=== PATIENT | male | born 1940 | race Caucasian/White ===

== ENCOUNTER 2018-01-20 12:38 | Inpatient (IN) | payer MEDICARE, OTHER ==
[~2018-01-20] VITALS: Ht 172.7 cm; Wt 58.7 kg
[2018-01-20] MEDS ORDERED: NKM (13:23)
[2018-01-20 13:45] LABS: BASOPHILS % (AUTO) 0.7 % (0.0-2.0); EOSINOPHILS % (AUTO) 0.7 % (0.0-3.0); HEMATOCRIT 30.7 % (42.0-52.0); HEMOGLOBIN 10.5 G/DL (14.2-18.0); LYMPHOCYTES % (AUTO) 33.8 % (20.0-45.0); MEAN CORPUSCULAR VOLUME 90 FL (80-99); MONOCYTES % (AUTO) 5.3 % (1.0-10.0); NEUTROPHILS % (AUTO) 59.4 % (45.0-75.0); PLATELET COUNT 502 K/UL (150-450); RED BLOOD COUNT 3.42 M/UL (4.70-6.10); WHITE BLOOD COUNT 11.2 K/UL (4.8-10.8)
[2018-01-20] MEDS ORDERED: ASPIRIN-LOW81 MG GT (13:45)
[2018-01-20] MEDS ORDERED: ALBUTEROL2.5 MG/3 M INH (13:45)
[2018-01-20 13:51] LABS: ANION GAP 7 mmol/L (5-15); BLOOD UREA NITROGEN 17 mg/dL (7-18); CALCIUM 9.4 MG/DL (8.5-10.1); CARBON DIOXIDE 30 MMOL/L (21-32); CHLORIDE 100 MMOL/L (98-107); CREATININE 1.2 MG/DL (0.55-1.30); POTASSIUM 4.4 MMOL/L (3.5-5.1); SODIUM 137 MMOL/L (136-145)
[2018-01-20] MEDS ORDERED: SENNA8.8 MG/5 M GT (14:00)
[2018-01-20] MEDS ORDERED: DIOVAN HCT 80MG1 TAB GT (14:00)
[2018-01-20] MEDS ORDERED: UTI-STAT L3875 MG/31 GT (14:00)
[2018-01-20] MEDS ORDERED: AVODART0.5 MG GT (14:00)
[2018-01-20] MEDS ORDERED: MOM30 ML GT (14:00)
[2018-01-20] MEDS ORDERED: ZOCOR20 MG GT (14:00)
[2018-01-20] MEDS ORDERED: DOCUSATE SODIU100 M2 GT (14:00)
[2018-01-20] MEDS ORDERED: CALCIUM LACTATE84 MG GT (14:00)
[2018-01-20] MEDS ORDERED: MULTI-DELYN237 ML GT (14:00)
[2018-01-20] MEDS ORDERED: TRAZODONE HCL50 MG GT (14:00)
[2018-01-20] MEDS ORDERED: ACETAMINOPHEN325 M1 GT (14:00)
[2018-01-20] MEDS ORDERED: FLEET ENEMA133 M1 RC (14:00)
[2018-01-20] MEDS ORDERED: CALCIUM CARBON500 M1 GT (14:00)
[2018-01-20] MEDS ORDERED: Cefepime HCl 2 GM in NS 110 ML IV SCH (14:00)
[2018-01-20] MEDS ORDERED: PRO-STAT LIQUID30 ML ORAL (14:00)
[2018-01-20] MEDS ORDERED: GLYBURIDE2.5 MG GT (14:00)
[2018-01-20] MEDS ORDERED: VITAMIN D1000 UNI1 GT (14:00)
[2018-01-20] MEDS ORDERED: METAMUCIL POWD174 GM GT (14:00)
[2018-01-20 14:02] LABS: ALANINE AMINOTRANSFERASE 14 U/L (12-78); ALBUMIN 2.6 G/DL (3.4-5.0); ALBUMIN/GLOBULIN RATIO 0.5 (1.0-2.7); ALKALINE PHOSPHATASE 86 U/L (46-116); ASPARTATE AMINO TRANSFERASE 16 U/L (15-37); BILIRUBIN,TOTAL 0.4 MG/DL (0.2-1.0)
--- NOTE | 2018-01-20 14:39 | Emergency Room Report ---
History of Present Illness General Chief Complaint: Abdominal Pain Source: Medical Record Present Illness HPI Mr. Amaya is a 77-year-old male with history of Alzheimer's disease, COPD, pneumonia who presents with abnormal chest x-ray. Chest x-ray obtained recently this week, revealed bibasilar pneumonia. I obtained the majority of the history from daughter bedside and SNF records. Patient is nonverbal. Daughter explained that he was semi-independent until April when he broke his hip. At that time, living with his . He was not a surgical candidate to address hip fx. He continued to decline. Most recently he was discharged from [facility] in [facility] on January 10 after 10 day hospital stay for pneumonia presumed to be aspiration pneumonia. He had a G-tube placed during that hospitalization. Since that time he's nothing by mouth status. Since discharge, has been treated with with Levaquin. Chest x-ray was obtained due to persistent coug and re-assessment of recent pneumonia. Allergies: Coded Allergies: No Known Allergies (Unverified , 01/20/18) Patient History Limited by: language barrier, age, medical condition - dementia Past Medical History: see triage record, old chart reviewed Past Surgical History: other - reviewed per SNF records Pertinent Family History: other - not pertinent to today's presentation Social History Narrative daughter bedside, Currently resident of SNF Reviewed Nursing Documentation: PMH: Agreed; PSxH: Agreed Nursing Documentation-PM Past Medical History: No History, Except For Hx Cardiac Problems: Yes - Anemia Hx Hypertension: Yes Hx COPD: Yes - Pneumonia Hx Diabetes: Yes - Type 2 Hx Gastrointestinal Problems: Yes - dysphagia, hepatitis, Hx Dialysis: No - BPH History Of Psychiatric Problem: Yes - Major depression Hx Neurological Problems: Yes - lack of coordination, muscle weakness, Alzheimer's disease Hx Cerebrovascular Accident: Yes Review of Systems All Other Systems: limited - dementia Physical Exam Vital Signs Date Time Temp Pulse Resp B/P (MAP) Pulse Ox O2 Delivery O2 Flow Rate FiO2 01/20/18 12:46 97.2 72 14 116/70 91 Nasal Cannula 2.0 Sp02 EP Interpretation: reviewed, normal General Appearance: no apparent distress, alert, non-toxic, other - nonverbal, Chronically Ill Head: normocephalic, atraumatic Eyes: bilateral eye normal inspection, bilateral eye PERRL ENT: normal pharynx, no angioedema Neck: full range of motion, supple/symm/no masses Respiratory: chest non-tender, no respiratory distress, no retraction, no accessory muscle use, decreased breath sounds, speaking full sentences Cardiovascular #1: regular rate, rhythm, no edema, no gallop, no rub Gastrointestinal: normal bowel sounds, non tender, soft, no mass, no organomegaly, no peritonitis, no guarding, no rebound, other - G tube site CDI Musculoskeletal: back normal, normal range of motion, non-tender, calf tenderness Neurologic: alert, responsive, sensory intact, speech normal Psychiatric: other - flat affect Skin: normal turgor, pallor Lymphatic: no adenopathy Medical Decision Making Diagnostic Impression: Primary Impression: HCAP (healthcare-associated pneumonia) ER Course Mr. Amaya presents with hx of PNA. Chest x-ray performed today revealed large LLL infiltrate and RLL atelectasis Admitted to service of Dr. Donahue for broad spectrum abx Slighted elevated WBC , normal lactic acid on today's labs Labs Test 01/20/18 13:15 White Blood Count 11.2 K/UL (4.8-10.8) Red Blood Count 3.42 M/UL (4.70-6.10) Hemoglobin 10.5 G/DL (14.2-18.0) Hematocrit 30.7 % (42.0-52.0) Mean Corpuscular Volume 90 FL (80-99) Mean Corpuscular Hemoglobin 30.6 PG (27.0-31.0) Mean Corpuscular Hemoglobin Concent 34.0 G/DL (32.0-36.0) Red Cell Distribution Width 13.0 % (11.6-14.8) Platelet Count 502 K/UL (150-450) Mean Platelet Volume 6.2 FL (6.5-10.1) Neutrophils (%) (Auto) 59.4 % (45.0-75.0) Lymphocytes (%) (Auto) 33.8 % (20.0-45.0) Monocytes (%) (Auto) 5.3 % (1.0-10.0) Eosinophils (%) (Auto) 0.7 % (0.0-3.0) Basophils (%) (Auto) 0.7 % (0.0-2.0) Sodium Level 137 MMOL/L (136-145) Potassium Level 4.4 MMOL/L (3.5-5.1) Chloride Level 100 MMOL/L (98-107) Carbon Dioxide Level 30 MMOL/L (21-32) Anion Gap 7 mmol/L (5-15) Blood Urea Nitrogen 17 mg/dL (7-18) Creatinine 1.2 MG/DL (0.55-1.30) Estimat Glomerular Filtration Rate mL/min (>60) Glucose Level 46 MG/DL (74-106) Lactic Acid Level 1.70 mmol/L (0.4-2.0) Calcium Level 9.4 MG/DL (8.5-10.1) Total Bilirubin 0.4 MG/DL (0.2-1.0) Aspartate Amino Transf (AST/SGOT) 16 U/L (15-37) Alanine Aminotransferase (ALT/SGPT) 14 U/L (12-78) Alkaline Phosphatase 86 U/L (46-116) Troponin I 0.017 ng/mL (0.000-0.056) Pro-B-Type Natriuretic Peptide 282 pg/mL (0-125) Total Protein 7.4 G/DL (6.4-8.2) Albumin 2.6 G/DL (3.4-5.0) Globulin 4.8 g/dL Albumin/Globulin Ratio 0.5 (1.0-2.7) EKG Diagnostic Results EKG Time: 12:54 Rate: normal Rhythm: NSR ST Segments: no acute changes Other Impression normal sinus rhythm normal rate normal axis normal intervals no ST elevation no ST-T signs of ischemia rate 85 bpm Chest X-Ray Diagnostic Results Chest X-Ray Diagnostic Results : Chest X-Ray Ordered: Yes # of Views/Limited/Complete: 1 View Indication: Other - hx of PNA EP Interpretation: Yes Impression: Other - right lower lobe atelectasis LLL infiltrate no PTX normal cardiac silhouette normal mediastinum Last Vital Signs Date Time Temp Pulse Resp B/P (MAP) Pulse Ox O2 Delivery O2 Flow Rate FiO2 01/20/18 13:32 67 22 Room Air 01/20/18 12:46 97.2 116/70 91 2.0 Status: unchanged Disposition: ADMITTED INPATIENT Condition: Stable Referrals: Beto Donahue MD (PCP) Deedee Zelaya MD Jan 20, 2018 14:39
[2018-01-20 14:48] VITALS: BP 126/70
[2018-01-20 15:30] VITALS: BP 146/86
--- NOTE | 2018-01-20 16:00 | Diagnostic Imaging Report ---
Indication: Cough Technique: One view of the chest Comparison: none Findings: There is some infiltrate at the left lung base. There is some hazy reticular infiltrate in the right infrahilar region. The bilateral pleural spaces, upper lungs are clear. The heart size is normal. The aorta is evaluated tortuous and calcified Impression: Left lung base and right infrahilar region infiltrates, likely pneumonia
[2018-01-20] MEDS ORDERED: Milk of Magnesia 30ml Ud ORAL PRN (16:45)
[2018-01-20] MEDS ORDERED: Acetaminophen 650mg/20.3ml NG PRN (16:45)
[2018-01-20] MEDS ORDERED: Fleet's Enema 133ml RECTAL PRN ×2 (17:00→18:15)
[2018-01-20] MEDS ORDERED: Albuterol ud Inhalation HHN PRN (17:00)
[2018-01-20] MEDS ORDERED: Sennosides 8.6mg tab GT PRN ×2 (17:45→18:15)
[2018-01-20] MEDS ORDERED: Vancomycin 1.5 GM/D5W 250ML IVPB ONE (18:00)
[2018-01-20 20:00] VITALS: BP 143/88
[2018-01-20] MEDS ORDERED: NovoLOG Insulin Flexpen SUBQ SCH (21:00)
[2018-01-20] MEDS: Piperacillin/Tazobactam 4.5 GM in NS 110 ML IVPB SCH (21:32)
[2018-01-20] MEDS: Heparin 5000 units/ml inj SUBQ SCH (21:33)
[2018-01-20] MEDS: Depakote 125mg Sprinkles GT SCH (21:34)
[2018-01-20] MEDS: TraZODone 50mg tab GT SCH (21:34)
--- NOTE | 2018-01-20 21:56 | History & Physical ---
History and Physical History & Physicial HPI Mr. Amaya is a 77-year-old male with history of Alzheimer's disease, COPD, pneumonia who presents with abnormal chest x-ray. Chest x-ray with bibasilar pneumonia. Patient with hip fx but was not a candidate for surgery and thereafter began to decline. He continued to decline. He was recently discharged from [facility] in [facility] on January 10 for aspiration pneumonia. He had a G-tube placed during that hospitalization due to ongoing aspiration risk. Cxr done confirmed pneumonia. Currently nonverbal but awake. no distress noted Allergies: No Known Allergies (Unverified , 01/20/18) Past Medical History: dementia, COPD, pneumonia, anemia, hepatitis, hip fracture, depression, BPH Past Surgical History: GT Pertinent Family History: NC Social History Narrative: Currently resident of SNF; nonverbal Reviewed of systems: unable; daughter at bedside; nonverbal Physical WDWN NAD moderate breath sounds bilaterally with some rhonchi [id number] without MRG NABS nontender no HSM; GT no CCE reduced skin turgor nonfocal Laboratory Tests Test 01/20/18 13:15 White Blood Count 11.2 K/UL (4.8-10.8) H Red Blood Count 3.42 M/UL (4.70-6.10) L Hemoglobin 10.5 G/DL (14.2-18.0) L Hematocrit 30.7 % (42.0-52.0) L Mean Corpuscular Volume 90 FL (80-99) Mean Corpuscular Hemoglobin 30.6 PG (27.0-31.0) Mean Corpuscular Hemoglobin Concent 34.0 G/DL (32.0-36.0) Red Cell Distribution Width 13.0 % (11.6-14.8) Platelet Count 502 K/UL (150-450) H Mean Platelet Volume 6.2 FL (6.5-10.1) L Neutrophils (%) (Auto) 59.4 % (45.0-75.0) Lymphocytes (%) (Auto) 33.8 % (20.0-45.0) Monocytes (%) (Auto) 5.3 % (1.0-10.0) Eosinophils (%) (Auto) 0.7 % (0.0-3.0) Basophils (%) (Auto) 0.7 % (0.0-2.0) Sodium Level 137 MMOL/L (136-145) Potassium Level 4.4 MMOL/L (3.5-5.1) Chloride Level 100 MMOL/L (98-107) Carbon Dioxide Level 30 MMOL/L (21-32) Anion Gap 7 mmol/L (5-15) Blood Urea Nitrogen 17 mg/dL (7-18) Creatinine 1.2 MG/DL (0.55-1.30) Estimat Glomerular Filtration Rate mL/min (>60) Glucose Level 46 MG/DL (74-106) L Lactic Acid Level 1.70 mmol/L (0.4-2.0) Calcium Level 9.4 MG/DL (8.5-10.1) Total Bilirubin 0.4 MG/DL (0.2-1.0) Aspartate Amino Transf (AST/SGOT) 16 U/L (15-37) Alanine Aminotransferase (ALT/SGPT) 14 U/L (12-78) Alkaline Phosphatase 86 U/L (46-116) Troponin I 0.017 ng/mL (0.000-0.056) Pro-B-Type Natriuretic Peptide 282 pg/mL (0-125) H Total Protein 7.4 G/DL (6.4-8.2) Albumin 2.6 G/DL (3.4-5.0) L Globulin 4.8 g/dL Albumin/Globulin Ratio 0.5 (1.0-2.7) L IMPRESSION pneumonia respiratory stable leukocytosis aspiration GT BPH PLAN hydrate antibiotics respiratory care oxygen resume meds monitor labs sq heparin d/w daughter impression, plan, and exam edited and reviewed in detail care discussed with Beto Stanton MD Jan 20, 2018 21:56
--- NOTE | 2018-01-20 21:56 | General Progress Note ---
Subjective Allergies: Coded Allergies: No Known Allergies (Unverified , 01/20/18) Objective Last 24 Hour Vital Signs Date Time Temp Pulse Resp B/P (MAP) Pulse Ox O2 Delivery O2 Flow Rate FiO2 01/20/18 18:36 126/70 01/20/18 16:00 85 01/20/18 15:53 97.2 58 22 126/70 99 Room Air 01/20/18 15:43 Room Air 01/20/18 15:30 97.3 104 20 146/86 (106) 01/20/18 14:48 97.2 54 22 126/70 99 Room Air 01/20/18 13:32 67 22 Room Air 01/20/18 12:46 97.2 72 14 116/70 91 Nasal Cannula 2.0 Laboratory Tests 01/20/18 13:15: White Blood Count 11.2H, Red Blood Count 3.42L, Hemoglobin 10.5L, Hematocrit 30.7L, Mean Corpuscular Volume 90, Mean Corpuscular Hemoglobin 30.6, Mean Corpuscular Hemoglobin Concent 34.0, Red Cell Distribution Width 13.0, Platelet Count 502H, Mean Platelet Volume 6.2L, Neutrophils (%) (Auto) 59.4, Lymphocytes (%) (Auto) 33.8, Monocytes (%) (Auto) 5.3, Eosinophils (%) (Auto) 0.7, Basophils (%) (Auto) 0.7, Sodium Level 137, Potassium Level 4.4, Chloride Level 100, Carbon Dioxide Level 30, Anion Gap 7, Blood Urea Nitrogen 17, Creatinine 1.2, Estimat Glomerular Filtration Rate , Glucose Level 46L, Lactic Acid Level 1.70, Calcium Level 9.4, Total Bilirubin 0.4, Aspartate Amino Transf (AST/SGOT) 16, Alanine Aminotransferase (ALT/SGPT) 14, Alkaline Phosphatase 86, Troponin I 0.017, Pro-B-Type Natriuretic Peptide 282H, Total Protein 7.4, Albumin 2.6L, Globulin 4.8, Albumin/Globulin Ratio 0.5L Height (Feet): 5 Height (Inches): 8.00 Weight (Pounds): 160 Beto Donahue MD Jan 20, 2018 21:56
[2018-01-21] VITALS: BP 147/79
[2018-01-21 04:00] VITALS: BP 128/81
[2018-01-21 05:47] LABS: BASOPHILS % (AUTO) 0.5 % (0.0-2.0); EOSINOPHILS % (AUTO) 0.7 % (0.0-3.0); HEMATOCRIT 29.4 % (42.0-52.0); LYMPHOCYTES % (AUTO) 20.4 % (20.0-45.0); MEAN CORPUSCULAR VOLUME 91 FL (80-99); MONOCYTES % (AUTO) 3.8 % (1.0-10.0); NEUTROPHILS % (AUTO) 74.6 % (45.0-75.0); PLATELET COUNT 425 K/UL (150-450); RED BLOOD COUNT 3.23 M/UL (4.70-6.10); RED CELL DISTRIBUTION WIDTH 12.6 % (11.6-14.8); WHITE BLOOD COUNT 9.6 K/UL (4.8-10.8)
[2018-01-21] MEDS: Vancomycin 500mg/D5W 110ml IVPB SCH ×4 (05:53→18:46)
[2018-01-21] MEDS: NovoLOG Insulin Flexpen SUBQ SCH ×5 (05:58→23:12)
[2018-01-21 06:11] LABS: ANION GAP 8 mmol/L (5-15); BLOOD UREA NITROGEN 18 mg/dL (7-18); CALCIUM 8.8 MG/DL (8.5-10.1); CARBON DIOXIDE 27 MMOL/L (21-32); CHLORIDE 103 MMOL/L (98-107); CREATININE 1.2 MG/DL (0.55-1.30); POTASSIUM 4.4 MMOL/L (3.5-5.1); SODIUM 138 MMOL/L (136-145)
[2018-01-21] MEDS: Piperacillin/Tazobactam 4.5 GM in NS 110 ML IVPB SCH ×3 (07:06→22:45)
--- NOTE | 2018-01-21 07:24 | General Progress Note ---
Assessment/Plan Assessment/Plan IMPRESSION pneumonia respiratory stable leukocytosis aspiration GT BPH PLAN hydrate labs improved antibiotics; check cultures respiratory care oxygen resume meds monitor labs sq heparin d/w daughter impression, plan, and exam edited and reviewed in detail care discussed with RN Subjective Allergies: Coded Allergies: No Known Allergies (Unverified , 01/20/18) Subjective comfortable nonverbal Objective Last 24 Hour Vital Signs Date Time Temp Pulse Resp B/P (MAP) Pulse Ox O2 Delivery O2 Flow Rate FiO2 01/21/18 04:00 75 01/21/18 04:00 98.7 86 22 128/81 (97) 01/21/18 00:00 98.3 87 22 147/79 (101) 01/21/18 00:00 77 01/20/18 21:00 Room Air 01/20/18 20:00 98.3 90 22 143/88 (106) 01/20/18 20:00 75 01/20/18 18:36 126/70 01/20/18 16:00 85 01/20/18 15:53 97.2 58 22 126/70 99 Room Air 01/20/18 15:43 Room Air 01/20/18 15:30 97.3 104 20 146/86 (106) 01/20/18 14:48 97.2 54 22 126/70 99 Room Air 01/20/18 13:32 67 22 Room Air 01/20/18 12:46 97.2 72 14 116/70 91 Nasal Cannula 2.0 Intake and Output 01/20/18 01/21/18 19:00 07:00 Intake Total 100 ml 450 ml Balance 100 ml 450 ml Intake Oral 0 ml 450 ml IV Total 100 ml # Voids 4 Laboratory Tests 01/20/18 13:15: White Blood Count 11.2H, Red Blood Count 3.42L, Hemoglobin 10.5L, Hematocrit 30.7L, Mean Corpuscular Volume 90, Mean Corpuscular Hemoglobin 30.6, Mean Corpuscular Hemoglobin Concent 34.0, Red Cell Distribution Width 13.0, Platelet Count 502H, Mean Platelet Volume 6.2L, Neutrophils (%) (Auto) 59.4, Lymphocytes (%) (Auto) 33.8, Monocytes (%) (Auto) 5.3, Eosinophils (%) (Auto) 0.7, Basophils (%) (Auto) 0.7, Sodium Level 137, Potassium Level 4.4, Chloride Level 100, Carbon Dioxide Level 30, Anion Gap 7, Blood Urea Nitrogen 17, Creatinine 1.2, Estimat Glomerular Filtration Rate , Glucose Level 46L, Lactic Acid Level 1.70, Calcium Level 9.4, Total Bilirubin 0.4, Aspartate Amino Transf (AST/SGOT) 16, Alanine Aminotransferase (ALT/SGPT) 14, Alkaline Phosphatase 86, Troponin I 0.017, Pro-B-Type Natriuretic Peptide 282H, Total Protein 7.4, Albumin 2.6L, Globulin 4.8, Albumin/Globulin Ratio 0.5L 01/21/18 05:25: White Blood Count 9.6, Red Blood Count 3.23L, Hemoglobin 10.0L, Hematocrit 29.4L , Mean Corpuscular Volume 91, Mean Corpuscular Hemoglobin 31.0, Mean Corpuscular Hemoglobin Concent 34.1, Red Cell Distribution Width 12.6, Platelet Count 425, Mean Platelet Volume 6.1L, Neutrophils (%) (Auto) 74.6, Lymphocytes ( %) (Auto) 20.4, Monocytes (%) (Auto) 3.8, Eosinophils (%) (Auto) 0.7, Basophils (%) (Auto) 0.5, Sodium Level 138, Potassium Level 4.4, Chloride Level 103, Carbon Dioxide Level 27, Anion Gap 8, Blood Urea Nitrogen 18, Creatinine 1.2, Estimat Glomerular Filtration Rate , Glucose Level 82, Calcium Level 8.8 Height (Feet): 5 Height (Inches): 8.00 Weight (Pounds): 160 Objective WDWN NAD reduced breath sounds bilaterally without rhonchi or wheeze [id number] without MRG NABS nontender no HSM; GT no CCE reduced ROM nonverbal skin clear nonfocal Beto Donahue MD Jan 21, 2018 07:24
[2018-01-21 08:00] VITALS: BP 141/65
[2018-01-21] MEDS: Vitamin D 1000 IU Tab GT SCH (08:56)
[2018-01-21] MEDS: Multivitamins W/Minerals 15 ML UDC GT SCH (08:56)
[2018-01-21] MEDS: Depakote 125mg Sprinkles GT SCH ×2 (08:56→21:35)
[2018-01-21] MEDS: Milk of Magnesia 30ml Ud GT SCH (08:58)
[2018-01-21] MEDS: Calcium Carbonate 1250mg/5ml Liquid ud GT SCH (08:59)
[2018-01-21] MEDS: Aspirin EC 81mg tab ORAL SCH (08:59)
[2018-01-21] MEDS: Pantoprazole Inj IVP SCH (08:59)
[2018-01-21] MEDS: Docusate 250mg cap ORAL SCH (08:59)
[2018-01-21] MEDS ORDERED: Milk of Magnesia 30ml Ud GT SCH (09:00)
[2018-01-21] MEDS: Heparin 5000 units/ml inj SUBQ SCH ×2 (09:00→21:38)
[2018-01-21] MEDS ORDERED: Varibar Thin Liquid powder 148gm MC PRN (11:00)
[2018-01-21] MEDS ORDERED: Varibar Pudding 230ml MC PRN (11:00)
[2018-01-21] MEDS ORDERED: Varibar Honey 250ml MC PRN (11:00)
[2018-01-21] MEDS ORDERED: Varibar Nectar 240ml MC PRN (11:00)
--- NOTE | 2018-01-21 11:58 | Diagnostic Imaging Report ---
APPROVED REPORT CPT Code: 57002 Symptoms Comments: Pain BILATERAL: Common femoral artery waveform analysis is within normal limits at rest. Color flow duplex sonography reveals minimal to mild calcification throughout the superficial femoral and popliteal arteries. There is no evidence of significant stenosis or occlusion within these segments. The posterior tibial, anterior, perineal and dorsalis pedis arteries are patent. Doppler tibial artery waveform analyses are within normal limits, bilaterally. There is no evidence of hemodynamically significant arterial occlusive disease, bilaterally.
[2018-01-21 11:59] VITALS: BP 139/72
--- NOTE | 2018-01-21 12:03 | Diagnostic Imaging Report ---
Indications: Altered mental status Technique: Spiral acquisitions obtained through the brain. Angled axial and coronal 5 x 5 mm slices were reconstructed. Total dose length product 1397.2 mGycm. CTDI vol(s) 70.38 mGy. Dose reduction achieved using automated exposure control Comparison: None. Findings: There is marked age-related enlargement of the ventricles, less striking enlargement of the extra-axial CSF spaces. Encephalomalacia is seen in the bilateral inferior frontal lobes and anterior left temporal lobe. There is periventricular deep white matter low-attenuation. Otherwise normal castillo-white differentiation. No acute intracranial hemorrhage or edema. No mass effect nor midline shift. Visualized orbits and sinuses are unremarkable. There is chronic appearing sclerosis of the right mastoids. The left mastoids are clear. The calvarium is intact. Impression: Ventriculomegaly, out of proportion to the degree of sulcal dilatation. Probably due to disproportionate central volume loss, but normal pressure hydrocephalus is also a possibility Periventricular deep white matter low-attenuation, consistent with chronic ischemic change. Chronic encephalomalacia, consistent with old infarcts, involving the bilateral right greater than left frontal lobes, left anterior temporal lobe Negative for acute intracranial bleed or mass effect The CT scanner at [facility] is accredited by the [employer] and the scans are performed using protocols designed to limit radiation exposure to as low as reasonably achievable to attain images of sufficient resolution adequate for diagnostic evaluation.
--- NOTE | 2018-01-21 14:56 | Diagnostic Imaging Report ---
Indication: Cough Technique: One view of the chest Comparison: 01/20/2018 Findings: Interim partial clearing of previously demonstrated left basilar infiltrate. Ill-defined opacity in right infrahilar region persists. No new infiltrates. Pleural spaces are clear. The right lung is clear. The heart size is normal. The aorta is calcified Impression: Interim partial improvement of previously demonstrated left basilar infiltrate Unchanged right infrahilar region infiltrate
[2018-01-21 16:00] VITALS: BP 149/78
[2018-01-21 20:00] VITALS: BP_SYST 137; BP_SYST 141; BP_DIAS 65; BP_DIAS 94
[2018-01-21] MEDS: TraZODone 50mg tab GT SCH (21:35)
[2018-01-22] VITALS: BP 142/82
[2018-01-22 04:00] VITALS: BP 147/67
[2018-01-22] MEDS: Vancomycin 500mg/D5W 110ml IVPB SCH ×4 (06:00→18:03)
[2018-01-22] MEDS: NovoLOG Insulin Flexpen SUBQ SCH ×4 (06:00→23:54)
[2018-01-22] MEDS: Piperacillin/Tazobactam 4.5 GM in NS 110 ML IVPB SCH ×3 (07:37→21:28)
[2018-01-22 08:00] VITALS: BP 150/79
[2018-01-22] MEDS: Calcium Carbonate 1250mg/5ml Liquid ud GT SCH (09:21)
[2018-01-22] MEDS: Pantoprazole Inj IVP SCH (09:21)
[2018-01-22] MEDS: Milk of Magnesia 30ml Ud GT SCH (09:22)
[2018-01-22] MEDS: Multivitamins W/Minerals 15 ML UDC GT SCH (09:22)
[2018-01-22] MEDS: Vitamin D 1000 IU Tab GT SCH (09:22)
[2018-01-22] MEDS: Depakote 125mg Sprinkles GT SCH ×2 (09:22→20:57)
[2018-01-22] MEDS: Aspirin EC 81mg tab ORAL SCH (09:23)
[2018-01-22] MEDS: Docusate 250mg cap ORAL SCH (09:23)
[2018-01-22] MEDS: Heparin 5000 units/ml inj SUBQ SCH ×2 (09:26→20:58)
--- NOTE | 2018-01-22 09:42 | General Progress Note ---
Assessment/Plan Assessment/Plan IMPRESSION pneumonia respiratory stable leukocytosis aspiration GT BPH PLAN hydrate as is antibiotics; check cultures and finalize respiratory care oxygen resume meds monitor labs sq heparin d/w daughter as to disposition impression, plan, and exam edited and reviewed in detail care discussed with RN Subjective ROS Limited/Unobtainable: Yes Allergies: Coded Allergies: No Known Allergies (Unverified , 01/20/18) Subjective comfortable nonverbal no distress Objective Last 24 Hour Vital Signs Date Time Temp Pulse Resp B/P (MAP) Pulse Ox O2 Delivery O2 Flow Rate FiO2 01/22/18 09:22 150/79 01/22/18 08:42 77 16 Room Air 01/22/18 08:00 97.2 77 18 150/79 (102) 99 01/22/18 04:35 53 01/22/18 04:00 98.0 77 20 147/67 (93) 95 01/22/18 00:00 97.7 86 20 142/82 (102) 95 01/21/18 23:45 70 01/21/18 21:01 75 20 Room Air 01/21/18 21:00 Room Air 01/21/18 20:00 97.2 72 20 137/94 (108) 94 01/21/18 20:00 66 01/21/18 18:46 149/78 01/21/18 16:00 97.2 75 21 149/78 (101) 94 01/21/18 16:00 72 01/21/18 12:00 77 01/21/18 11:59 97.0 79 21 139/72 (94) 95 Intake and Output 01/21/18 01/22/18 19:00 07:00 Intake Total 1100 ml 1120.0 ml Output Total 800 ml 2000 ml Balance 300 ml -880.0 ml Free Water 30 ml IV Total 1100 ml 790.0 ml Tube Feeding 300 ml Output Urine Total 800 ml 2000 ml # Bowel Movements 3 Laboratory Tests 01/22/18 05:20: Vancomycin Level Trough 14.7H Height (Feet): 5 Height (Inches): 8.00 Weight (Pounds): 160 Objective WDWN NAD reduced breath sounds bilaterally without rhonchi or wheeze [id number] without MRG NABS nontender no HSM; GT no CCE reduced ROM nonverbal skin clear nonfocal Beto Donahue MD Jan 22, 2018 09:42
[2018-01-22 12:00] VITALS: BP 133/79
[2018-01-22 16:00] VITALS: BP 108/49
[2018-01-22] MEDS ORDERED: Tubing IV Secondary IV ONE (16:28)
[2018-01-22] MEDS ORDERED: NS 275ml ONE (16:28)
[2018-01-22] MEDS ORDERED: Sterile Water Irrig 1000ml IRRIG ONE (16:28)
[2018-01-22 20:00] VITALS: BP 140/62
[2018-01-22] MEDS: TraZODone 50mg tab GT SCH (20:57)
[2018-01-23] VITALS: BP 126/68
[2018-01-23 04:00] VITALS: BP 130/73
[2018-01-23] MEDS: Vancomycin 500mg/D5W 110ml IVPB SCH ×2 (05:23)
[2018-01-23] MEDS: NovoLOG Insulin Flexpen SUBQ SCH ×2 (06:00→18:00)
[2018-01-23] MEDS: Piperacillin/Tazobactam 4.5 GM in NS 110 ML IVPB SCH ×3 (06:47→21:15)
[2018-01-23 08:00] VITALS: BP 143/87
--- NOTE | 2018-01-23 08:34 | General Progress Note ---
Assessment/Plan Assessment/Plan IMPRESSION pneumonia respiratory stable leukocytosis aspiration GT BPH MRSA colonized PLAN hydrate as is antibiotics; may convert to PO respiratory care oxygen resume meds monitor labs sq heparin as is d/w daughter as to disposition in am impression, plan, and exam edited and reviewed in detail care discussed with RN Subjective ROS Limited/Unobtainable: Yes Allergies: Coded Allergies: No Known Allergies (Unverified , 01/20/18) Subjective comfortable nonverbal no distress Objective Last 24 Hour Vital Signs Date Time Temp Pulse Resp B/P (MAP) Pulse Ox O2 Delivery O2 Flow Rate FiO2 01/23/18 04:00 67 01/23/18 04:00 97.0 63 20 130/73 (92) 100 01/23/18 00:00 97.2 64 20 126/68 (87) 99 01/22/18 23:57 68 01/22/18 21:00 Room Air 01/22/18 20:59 59 01/22/18 20:00 97.3 64 20 140/62 (88) 95 01/22/18 19:53 70 18 Room Air 21 01/22/18 17:58 108/49 01/22/18 16:00 97.1 76 19 108/49 (68) 99 01/22/18 16:00 63 01/22/18 12:00 59 01/22/18 12:00 97.9 70 20 133/79 (97) 99 01/22/18 09:22 150/79 01/22/18 09:00 Room Air 01/22/18 08:42 77 16 Room Air Intake and Output 01/22/18 01/23/18 19:00 07:00 Intake Total 1536.0 ml Output Total 1000 ml 1900 ml Balance 536.0 ml -1900 ml IV Total 1086.0 ml Tube Feeding 450 ml Output Urine Total 1000 ml 1900 ml # Bowel Movements 3 Height (Feet): 5 Height (Inches): 8.00 Weight (Pounds): 160 Objective WDWN NAD reduced breath sounds bilaterally without rhonchi or wheeze [id number] without MRG NABS nontender no HSM; GT no CCE reduced ROM nonverbal skin clear nonfocal Beto Donahue MD Jan 23, 2018 08:34
--- NOTE | 2018-01-23 08:58 | Diagnostic Imaging Report ---
EXAM: XR Chest, 1 View CLINICAL HISTORY: SOB TECHNIQUE: Frontal view of the chest. COMPARISON: 01/21/18. FINDINGS/impression: Slight increase in left greater than right base consolidation. Extensive aortic calcification again noted
[2018-01-23] MEDS: Pantoprazole Inj IVP SCH (09:46)
[2018-01-23] MEDS: Docusate 250mg cap ORAL SCH (09:47)
[2018-01-23] MEDS: Vitamin D 1000 IU Tab GT SCH (09:47)
[2018-01-23] MEDS: Calcium Carbonate 1250mg/5ml Liquid ud GT SCH (09:47)
[2018-01-23] MEDS: Multivitamins W/Minerals 15 ML UDC GT SCH (09:47)
[2018-01-23] MEDS: Milk of Magnesia 30ml Ud GT SCH (09:47)
[2018-01-23] MEDS: Aspirin EC 81mg tab ORAL SCH (09:48)
[2018-01-23] MEDS: Depakote 125mg Sprinkles GT SCH ×2 (09:48→21:15)
[2018-01-23] MEDS: Heparin 5000 units/ml inj SUBQ SCH ×2 (09:51→21:14)
[2018-01-23 12:00] VITALS: BP 151/76
[2018-01-23] MEDS ORDERED: Albuterol ud Inhalation HHN PRN (12:31)
[2018-01-23] MEDS ORDERED: Acetaminophen 650mg/20.3ml NG PRN (12:31)
[2018-01-23] MEDS ORDERED: Fleet's Enema 133ml RECTAL PRN (12:33)
[2018-01-23] MEDS ORDERED: Milk of Magnesia 30ml Ud ORAL PRN (12:34)
[2018-01-23] MEDS ORDERED: Sennosides 8.6mg tab GT PRN (12:35)
[2018-01-23] MEDS ORDERED: Varibar Honey 250ml MC PRN (12:35)
[2018-01-23] MEDS ORDERED: Varibar Nectar 240ml MC PRN (12:36)
[2018-01-23] MEDS ORDERED: Varibar Thin Liquid powder 148gm MC PRN (12:36)
[2018-01-23] MEDS ORDERED: Varibar Pudding 230ml MC PRN (12:37)
[2018-01-23 16:00] VITALS: BP 144/58
[2018-01-23] MEDS: Vancomycin 500 MG in D5W 110 ML IVPB SCH (18:02)
[2018-01-23 20:00] VITALS: BP 150/78
[2018-01-23] MEDS: TraZODone 50mg tab GT SCH (21:14)
[2018-01-24] VITALS: BP 126/78
[2018-01-24 04:00] VITALS: BP 152/90
[2018-01-24] MEDS: Vancomycin 500 MG in D5W 110 ML IVPB SCH ×3 (05:08→19:10)
[2018-01-24] MEDS: NovoLOG Insulin Flexpen SUBQ SCH ×4 (06:43→17:27)
[2018-01-24] MEDS: Piperacillin/Tazobactam 4.5 GM in NS 110 ML IVPB SCH ×3 (06:44→20:39)
[2018-01-24 08:00] VITALS: BP 147/81
--- NOTE | 2018-01-24 08:41 | General Progress Note ---
Assessment/Plan Assessment/Plan IMPRESSION pneumonia/ worsening infiltrates respiratory stable leukocytosis, improved aspiration GT BPH MRSA colonized PLAN hydrate as is antibiotics; may convert to PO pending ID respiratory care oxygen resume meds monitor labs sq heparin as is d/w daughter as to disposition impression, plan, and exam edited and reviewed in detail care discussed with RN Subjective Allergies: Coded Allergies: No Known Allergies (Unverified , 01/20/18) Subjective comfortable nonverbal no distress d/w Objective Last 24 Hour Vital Signs Date Time Temp Pulse Resp B/P (MAP) Pulse Ox O2 Delivery O2 Flow Rate FiO2 01/24/18 08:00 97.7 72 20 147/81 (103) 96 01/24/18 04:00 98.6 70 20 152/90 (110) 99 01/24/18 00:00 97.7 75 20 126/78 (94) 98 01/23/18 21:00 Room Air 01/23/18 20:14 79 18 Room Air 21 01/23/18 20:00 97.2 72 18 150/78 (102) 98 01/23/18 18:03 144/58 01/23/18 16:00 97.2 80 20 144/58 (86) 96 01/23/18 12:00 96.8 79 18 151/76 (101) 98 79 01/23/18 09:48 143/87 01/23/18 09:00 Room Air Intake and Output 01/23/18 01/24/18 19:00 07:00 Intake Total 877.5 ml 192.5 ml Output Total 800 ml Balance 877.5 ml -607.5 ml Free Water 240 ml IV Total 587.5 ml 192.5 ml Tube Feeding 50 ml Output Urine Total 800 ml # Voids 4 # Bowel Movements 2 Labs Test 01/22/18 05:20 Vancomycin Level Trough 14.7 ug/mL (5.0-12.0) Height (Feet): 5 Height (Inches): 8.00 Weight (Pounds): 160 Objective WDWN NAD reduced breath sounds bilaterally with some rhonchi [id number] without MRG NABS nontender no HSM; GT no CCE reduced ROM nonverbal skin clear nonfocal Beto Donahue MD Jan 24, 2018 08:40
[2018-01-24] MEDS ORDERED: Pantoprazole Inj IVP SCH (09:00)
[2018-01-24 09:13] LABS: BASOPHILS % (AUTO) 0.8 % (0.0-2.0); EOSINOPHILS % (AUTO) 1.7 % (0.0-3.0); HEMATOCRIT 33.3 % (42.0-52.0); HEMOGLOBIN 11.2 G/DL (14.2-18.0); LYMPHOCYTES % (AUTO) 31.2 % (20.0-45.0); MEAN CORPUSCULAR VOLUME 91 FL (80-99); MONOCYTES % (AUTO) 5.5 % (1.0-10.0); NEUTROPHILS % (AUTO) 60.9 % (45.0-75.0); PLATELET COUNT 381 K/UL (150-450); RED BLOOD COUNT 3.68 M/UL (4.70-6.10); RED CELL DISTRIBUTION WIDTH 12.6 % (11.6-14.8); WHITE BLOOD COUNT 8.1 K/UL (4.8-10.8)
[2018-01-24] MEDS: Milk of Magnesia 30ml Ud GT SCH (09:20)
[2018-01-24] MEDS: Multivitamins W/Minerals 15 ML UDC GT SCH (09:22)
[2018-01-24] MEDS: Calcium Carbonate 1250mg/5ml Liquid ud GT SCH (09:22)
[2018-01-24] MEDS: Aspirin EC 81mg tab ORAL SCH (09:23)
[2018-01-24] MEDS: Vitamin D 1000 IU Tab GT SCH (09:23)
[2018-01-24] MEDS: Depakote 125mg Sprinkles GT SCH ×2 (09:25→20:39)
[2018-01-24] MEDS: Heparin 5000 units/ml inj SUBQ SCH ×2 (09:28→20:41)
[2018-01-24] MEDS: Docusate 100mg/10ml Liq GT SCH (11:22)
[2018-01-24 12:00] VITALS: BP_SYST 107; BP_SYST 133; BP_DIAS 66; BP_DIAS 79
--- NOTE | 2018-01-24 15:42 | Diagnostic Imaging Report ---
Indication: Dyspnea Comparison: 01/23/2018 A single view chest radiograph was obtained. Findings: Patchy infiltrates again demonstrated at the lung bases. Heart size is normal. Lungs are hyperexpanded. Bones are osteopenic. IMPRESSION: No change. Basal infiltrate
[2018-01-24 16:00] VITALS: BP 139/72
[2018-01-24 20:00] VITALS: BP 131/84
[2018-01-24] MEDS: TraZODone 50mg tab GT SCH (20:39)
--- NOTE | 2018-01-24 20:45 | Consultation ---
DATE OF CONSULTATION: 01/24/2018 INFECTIOUS DISEASES CONSULTATION CONSULTING PHYSICIAN: Nishi Camacho M.D. REFERRING PHYSICIAN: Beto Donahue M.D. REASON FOR CONSULTATION: Pneumonia. HISTORY OF PRESENT ILLNESS: This is a 77-year-old gentleman with history of dementia, COPD, who came in with pneumonia. He was recently discharged from [facility] in [place]. An Infectious Diseases consultation has been obtained for antibiotics. PAST MEDICAL HISTORY: 1. Dementia. 2. COPD. 3. Pneumonia. 4. Anemia. 5. Hepatitis. 6. Hip fracture. 7. Depression. 8. Benign prostatic hypertrophy. 9. Status post G-tube placement. SOCIAL HISTORY: Unknown. FAMILY HISTORY: Unknown. REVIEW OF SYSTEMS: Unable to obtain currently. MEDICATIONS: As an inpatient, the patient is on aspirin, calcium carbonate, docusate, Proscar, glyburide, milk of magnesia, multivitamin, IV vancomycin, Prevacid, atorvastatin, Depakote, subcutaneous heparin, trazodone, insulin, irbesartan, Zosyn, Seroquel, Senokot, milk of magnesia, Tylenol, and albuterol. ALLERGIES: No known drug allergies. PHYSICAL EXAMINATION: VITAL SIGNS: Temperature of 97.7, T-max of 98.6, pulse of 72, respiratory rate 20, blood pressure 147/81, and O2 saturation of 96%. HEENT: Pupils equally reactive to light and accommodation. Mouth appears clean without thrush. NECK: Supple. No adenopathy. No JVD. CARDIOVASCULAR: Regular rate and rhythm. No murmurs. LUNGS: Clear to auscultation bilaterally. No crackles. No wheezes. ABDOMEN: Soft and nontender. No organomegaly. G-tube site appears clean. EXTREMITIES: No cyanosis, no clubbing, no edema. LABORATORY AND DIAGNOSTIC DATA: Labs, white count 11.2 on 01/20/2018, white count of 8.1 on 01/24/2018, hemoglobin 11.2, hematocrit 33.3, MCV 91, platelet count of 381, and neutrophils of 60%. Sodium 138, potassium 4.4, chloride 103, bicarbonate 27, BUN 18, creatinine 1.2, glucose 82, and calcium 8.8. Total bilirubin 0.4, AST 16, ALT 14, and alkaline phosphatase 86. Troponin 0.017. Beta-natriuretic peptide 282. Total protein 7.7. Albumin 2.6. Nasal swab positive for MRSA. Rectal swab was negative for VRE. Blood cultures are negative. Chest x-ray showing slight decrease in left greater than right base consolidation. 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 ASSESSMENT: 1. This is a 77-year-old gentleman with history of dementia, pneumonia, and COPD, who comes in with probable bilateral aspiration pneumonia. 2. Dementia. 3. COPD. PLAN: 1. Continue vancomycin and Zosyn. 2. We will order sputum for Gram stain and culture. 3. We will follow up cultures and adjust antibiotics accordingly. I would like to thank, Dr. Donahue, for this consult. Nishi Camacho M.D. DR: DARIAN JOB#: [id number] CC: Beto Donahue M.D.; Fax#: [phone]
[2018-01-25] VITALS (7 sets, daily range): BP systolic 123–161; BP diastolic 64–82
[2018-01-25] MEDS: NovoLOG Insulin Flexpen SUBQ SCH ×5 (05:27→23:38)
[2018-01-25] MEDS: Vancomycin 500 MG in D5W 110 ML IVPB SCH ×2 (05:27→17:51)
[2018-01-25] MEDS: Piperacillin/Tazobactam 4.5 GM in NS 110 ML IVPB SCH ×3 (06:41→22:04)
[2018-01-25] MEDS: Milk of Magnesia 30ml Ud GT SCH (09:42)
[2018-01-25] MEDS: Calcium Carbonate 1250mg/5ml Liquid ud GT SCH (09:43)
[2018-01-25] MEDS: Depakote 125mg Sprinkles GT SCH ×2 (09:44→20:14)
[2018-01-25] MEDS: Aspirin EC 81mg tab ORAL SCH (09:45)
[2018-01-25] MEDS: Multivitamins W/Minerals 15 ML UDC GT SCH (09:45)
[2018-01-25] MEDS: Vitamin D 1000 IU Tab GT SCH (09:45)
[2018-01-25] MEDS: Heparin 5000 units/ml inj SUBQ SCH ×2 (09:46→20:15)
[2018-01-25] MEDS: Docusate 100mg/10ml Liq GT SCH (09:49)
--- NOTE | 2018-01-25 14:02 | General Progress Note ---
Assessment/Plan Assessment/Plan IMPRESSION pneumonia/ worsening infiltrates respiratory stable leukocytosis, improved aspiration GT BPH MRSA colonized diabetes with hypoglycemia on OHG PLAN dc OHG change feeds antibiotics; may convert to PO pending ID respiratory care oxygen aspiration precautions dc planning monitor labs sq heparin as is d/w daughter as to disposition impression, plan, and exam edited and reviewed in detail care discussed with RN Subjective Allergies: Coded Allergies: No Known Allergies (Unverified , 01/20/18) Subjective comfortable nonverbal no distress d/w daughter about SNF hypoglycemia on OHG Objective Last 24 Hour Vital Signs Date Time Temp Pulse Resp B/P (MAP) Pulse Ox O2 Delivery O2 Flow Rate FiO2 01/25/18 12:00 98.2 75 14 160/82 (108) 96 01/25/18 09:44 161/73 01/25/18 09:00 Room Air 01/25/18 08:00 97.0 74 16 161/73 (102) 95 01/25/18 04:00 98.3 88 16 132/82 (99) 99 01/25/18 00:00 97.4 83 17 129/78 (95) 99 01/24/18 21:00 Room Air 01/24/18 20:00 97.7 79 16 131/84 (100) 99 01/24/18 19:30 88 18 Room Air 21 01/24/18 17:31 139/72 01/24/18 16:00 97.3 93 20 139/72 (94) 96 Intake and Output 01/24/18 01/25/18 19:00 07:00 Intake Total 1372.5 ml 1827.5 ml Balance 1372.5 ml 1827.5 ml Free Water 180 ml 120 ml IV Total 592.5 ml 1357.5 ml Tube Feeding 600 ml 350 ml # Voids 3 3 # Bowel Movements 2 1 Height (Feet): 5 Height (Inches): 8.00 Weight (Pounds): 160 Objective WDWN NAD reduced breath sounds bilaterally with some rhonchi [id number] without MRG NABS nontender no HSM; GT no CCE reduced ROM nonverbal skin clear nonfocal Beto Donahue MD Jan 25, 2018 14:02
[2018-01-25] MEDS: TraZODone 50mg tab GT SCH (20:14)
[2018-01-26 04:00] VITALS: BP 136/78
[2018-01-26] MEDS: NovoLOG Insulin Flexpen SUBQ SCH ×4 (05:28→23:54)
[2018-01-26] MEDS: Piperacillin/Tazobactam 4.5 GM in NS 110 ML IVPB SCH (05:47)
[2018-01-26 08:00] VITALS: BP 130/76
[2018-01-26] MEDS: Multivitamins W/Minerals 15 ML UDC GT SCH (08:33)
[2018-01-26] MEDS: Milk of Magnesia 30ml Ud GT SCH (08:33)
[2018-01-26] MEDS: Docusate 100mg/10ml Liq GT SCH (08:33)
[2018-01-26] MEDS: Depakote 125mg Sprinkles GT SCH ×2 (08:34→20:27)
[2018-01-26] MEDS: Vitamin D 1000 IU Tab GT SCH (08:34)
[2018-01-26] MEDS: Calcium Carbonate 1250mg/5ml Liquid ud GT SCH (08:34)
[2018-01-26] MEDS: Aspirin EC 81mg tab ORAL SCH (08:34)
[2018-01-26] MEDS: Heparin 5000 units/ml inj SUBQ SCH ×2 (08:35→20:27)
--- NOTE | 2018-01-26 11:13 | Infectious Diseases Prog Note ---
Assessment/Plan Assessment/Plan antibiotics : vancomycin iv, zosyn A 1. pneumonia 2. COPD 3. dementia P 1. d/c vancomycin iv, zosyn 2. start and continue po levoquin 3 more days 3. will follow up cultures Subjective ROS Limited/Unobtainable: Yes Allergies: Coded Allergies: No Known Allergies (Unverified , 01/20/18) Objective Vital Signs Last 24 Hour Vital Signs Date Time Temp Pulse Resp B/P (MAP) Pulse Ox O2 Delivery O2 Flow Rate FiO2 01/26/18 08:34 130/76 01/26/18 08:05 Room Air 01/26/18 08:00 98.0 64 18 130/76 (94) 97 01/26/18 04:00 97.7 62 17 136/78 (97) 98 01/25/18 23:57 97.3 86 18 134/77 (96) 98 01/25/18 21:00 Room Air 01/25/18 20:00 98.1 67 17 123/64 (83) 98 01/25/18 17:50 123/67 01/25/18 16:00 96.8 73 20 123/67 (85) 97 01/25/18 12:00 98.2 75 14 160/82 (108) 96 Height (Feet): 5 Height (Inches): 8.00 Weight (Pounds): 129 Respiratory/Chest: lungs clear Cardiovascular: normal rate, regular rhythm, no gallop/murmur Abdomen: soft, non tender, other - GT Extremities: no edema Laboratory Tests Test 01/26/18 05:45 Hemoglobin A1c 4.9 % (4.3-6.0) Current Medications Medications (Trade) Dose Ordered Sig/Jess Route PRN Reason Start Time Stop Time Status Last Admin Dose Admin Acetaminophen (Tylenol) 650 mg Q4H PRN NG Fever/Headache/Mild Pain 01/23/18 12:31 02/19/18 12:30 Aspirin (Ecotrin) 81 mg DAILY ORAL 01/24/18 09:00 02/20/18 08:59 01/26/18 08:34 Atorvastatin Calcium (Lipitor) 10 mg BEDTIME GT 01/23/18 21:00 02/19/18 20:59 01/25/18 20:14 Calcium Carbonate (Os-Dionte) 1,250 mg DAILY GT 01/24/18 09:00 02/20/18 08:59 01/26/18 08:34 Dextrose (Dextrose 50%) 25 ml Q30M PRN IV Hypoglycemia 01/23/18 11:30 02/19/18 19:29 01/23/18 18:08 Dextrose (Dextrose 50%) 50 ml Q30M PRN IV Hypoglycemia 01/23/18 11:30 02/19/18 19:29 01/25/18 17:50 Divalproex Sodium (Depakote Sprinkles) 250 mg EVERY 12 HOURS GT 01/23/18 21:00 02/19/18 20:59 01/26/18 08:34 Docusate Sodium (Colace) 250 mg DAILY GT 01/24/18 09:00 02/20/18 08:59 01/26/18 08:33 Finasteride (Proscar) 5 mg DAILY ORAL 01/24/18 09:00 02/20/18 08:59 01/26/18 08:34 Heparin Sodium (Porcine) (Heparin 5000 units/ml) 5,000 units EVERY 12 HOURS SUBQ 01/23/18 21:00 02/19/18 20:59 01/26/18 08:35 Insulin Aspart (NovoLOG) Q6HR SUBQ 01/23/18 18:00 02/19/18 17:59 01/24/18 06:43 Irbesartan (Avapro) 75 mg BID GT 01/23/18 18:00 02/19/18 17:59 01/26/18 08:34 Lansoprazole (Prevacid) 30 mg DAILY GT 01/24/18 09:00 02/23/18 08:59 01/26/18 08:34 Magnesium Hydroxide (Mom) 30 ml DAILY GT 01/24/18 09:00 02/20/18 08:59 01/26/18 08:33 Magnesium Hydroxide (Mom) 30 ml DAILYPRN PRN ORAL Constipation 01/23/18 12:34 02/19/18 12:33 Multivitamins (Multivitamins W/ Minerals 15ml Liquid) 5 ml DAILY GT 01/24/18 09:00 02/20/18 08:59 01/26/18 08:33 Piperacillin Sod/ Tazobactam Sod 4.5 gm/Sodium Chloride 110 ml @ 27.5 mls/hr Q8HR IVPB 01/23/18 14:00 01/27/18 23:59 01/26/18 05:47 Quetiapine Fumarate (SEROquel) 25 mg TID GT 01/23/18 13:00 02/19/18 17:59 01/26/18 08:34 Sennosides (Senokot) 8.6 mg DAILYPRN PRN GT Constipation 01/23/18 12:35 02/22/18 12:34 Sodium Chloride 1,000 ml @ 100 mls/hr Q10H IV 01/23/18 12:30 02/19/18 12:29 01/25/18 16:01 Sodium Phosphate (Fleet's Sodium Phosl Enema) 133 ml DAILYPRN PRN RECTAL Constipation 01/23/18 12:33 02/19/18 12:32 Trazodone HCl (Desyrel) 50 mg BEDTIME GT 01/23/18 21:00 02/19/18 20:59 01/25/18 20:14 Vancomycin HCl (Vanco rx to dose) 1 ea DAILY PRN MISC RX TO DOSE 01/24/18 09:00 02/19/18 16:59 Vitamin D (Vitamin D) 2,000 intlu DAILY GT 01/24/18 09:00 02/20/18 08:59 01/26/18 08:34 Nishi Camacho MD Jan 26, 2018 11:13
[2018-01-26] MEDS: Levofloxacin 500mg tab ORAL SCH (11:59)
[2018-01-26 12:16] VITALS: BP 102/65
--- NOTE | 2018-01-26 12:38 | General Progress Note ---
Assessment/Plan Assessment/Plan IMPRESSION pneumonia/ worsening infiltrates respiratory stable leukocytosis, improved aspiration GT BPH MRSA colonized diabetes with hypoglycemia on OHG PLAN improved sugars with feeds antibiotics; may convert to PO pending ID respiratory care oxygen as needed aspiration precautions dc planning to snf monitor labs sq heparin as is d/w daughter as to disposition impression, plan, and exam edited and reviewed in detail care discussed with RN Subjective Allergies: Coded Allergies: No Known Allergies (Unverified , 01/20/18) Subjective comfortable nonverbal no distress now on po antibiotics d/w daughter about SNF hypoglycemia Objective Last 24 Hour Vital Signs Date Time Temp Pulse Resp B/P (MAP) Pulse Ox O2 Delivery O2 Flow Rate FiO2 01/26/18 12:16 98.0 100 18 102/65 (77) 97 01/26/18 08:34 130/76 01/26/18 08:05 Room Air 01/26/18 08:00 98.0 64 18 130/76 (94) 97 01/26/18 04:00 97.7 62 17 136/78 (97) 98 01/25/18 23:57 97.3 86 18 134/77 (96) 98 01/25/18 21:00 Room Air 01/25/18 20:00 98.1 67 17 123/64 (83) 98 01/25/18 17:50 123/67 01/25/18 16:00 96.8 73 20 123/67 (85) 97 Intake and Output 01/25/18 01/26/18 19:00 07:00 Intake Total 2022.5 ml 1387.5 ml Balance 2022.5 ml 1387.5 ml Free Water 340 ml 90 ml IV Total 1192.5 ml 737.5 ml Tube Feeding 490 ml 560 ml # Voids 2 3 # Bowel Movements 1 1 Laboratory Tests 01/26/18 05:45: Hemoglobin A1c 4.9 Height (Feet): 5 Height (Inches): 8.00 Weight (Pounds): 129 Objective WDWN NAD reduced breath sounds bilaterally with some rhonchi [id number] without MRG NABS nontender no HSM; GT no CCE reduced ROM nonverbal skin clear nonfocal Beto Donahue MD Jan 26, 2018 12:38
[2018-01-26 15:50] VITALS: BP 152/97
[2018-01-26] MEDS ORDERED: Tubing IV Secondary IV ONE (16:49)
[2018-01-26] MEDS ORDERED: NS 275ml ONE (16:49)
[2018-01-26 20:00] VITALS: BP 148/77
[2018-01-26] MEDS: TraZODone 50mg tab GT SCH (20:26)
[2018-01-27] VITALS: BP 153/74
[2018-01-27 04:00] VITALS: BP 138/80
[2018-01-27] MEDS: NovoLOG Insulin Flexpen SUBQ SCH ×2 (06:00→11:19)
[2018-01-27 08:00] VITALS: BP 158/92
--- NOTE | 2018-01-27 08:42 | General Progress Note ---
Assessment/Plan Assessment/Plan IMPRESSION pneumonia/ worsening infiltrates respiratory stable leukocytosis, improved aspiration GT BPH MRSA colonized diabetes with hypoglycemia on OHG PLAN improved sugars with feeds antibiotics; levaquin x 2 days respiratory care oxygen as needed aspiration precautions dc planning to snf today monitor labs sq heparin as is d/w daughter as to disposition and she is agreeable impression, plan, and exam edited and reviewed in detail care discussed with RN Subjective ROS Limited/Unobtainable: Yes Allergies: Coded Allergies: No Known Allergies (Unverified , 01/20/18) Subjective comfortable nonverbal no distress now on po antibiotics d/w daughter about SNF- will return to prior snf hypoglycemia corrected Objective Last 24 Hour Vital Signs Date Time Temp Pulse Resp B/P (MAP) Pulse Ox O2 Delivery O2 Flow Rate FiO2 01/27/18 08:00 97.0 88 17 158/92 (114) 98 01/27/18 04:00 98.8 60 18 138/80 (99) 98 01/27/18 00:00 97.4 66 18 153/74 (100) 97 01/26/18 21:00 Room Air 01/26/18 20:00 97.7 78 16 148/77 (100) 97 01/26/18 17:02 152/97 01/26/18 15:50 97.6 78 20 152/97 (115) 96 01/26/18 12:16 98.0 100 18 102/65 (77) 97 Intake and Output 01/26/18 01/27/18 19:00 07:00 Intake Total 1082.5 ml 900 ml Balance 1082.5 ml 900 ml Free Water 200 ml 300 ml IV Total 282.5 ml Tube Feeding 600 ml 600 ml # Voids 7 # Bowel Movements 1 Height (Feet): 5 Height (Inches): 8.00 Weight (Pounds): 129 Objective WDWN NAD reduced breath sounds bilaterally with some rhonchi [id number] without MRG NABS nontender no HSM; GT no CCE reduced ROM nonverbal skin clear nonfocal Beto Donahue MD Jan 27, 2018 08:42
[2018-01-27] MEDS: Aspirin EC 81mg tab ORAL SCH (09:34)
[2018-01-27] MEDS: Vitamin D 1000 IU Tab GT SCH (09:34)
[2018-01-27] MEDS: Depakote 125mg Sprinkles GT SCH (09:35)
[2018-01-27] MEDS: Heparin 5000 units/ml inj SUBQ SCH (09:35)
[2018-01-27] MEDS: Docusate 100mg/10ml Liq GT SCH (09:36)
[2018-01-27] MEDS: Milk of Magnesia 30ml Ud GT SCH (09:36)
[2018-01-27] MEDS: Calcium Carbonate 1250mg/5ml Liquid ud GT SCH (09:36)
[2018-01-27] MEDS: Multivitamins W/Minerals 15 ML UDC GT SCH (09:37)
[2018-01-27 12:00] VITALS: BP 144/75
[2018-01-27] MEDS: Levofloxacin 500mg tab ORAL SCH (12:26)
--- NOTE | 2018-01-27 14:31 | Infectious Diseases Prog Note ---
Assessment/Plan Assessment/Plan A; 1. pneumonia 2. COPD 3. dementia 4. MRSA colonization P 1. continue po Levaquin 2 more days 2. will follow up cultures Subjective ROS Limited/Unobtainable: Yes Constitutional: Reports: no symptoms Allergies: Coded Allergies: No Known Allergies (Unverified , 01/20/18) Objective Vital Signs Last 24 Hour Vital Signs Date Time Temp Pulse Resp B/P (MAP) Pulse Ox O2 Delivery O2 Flow Rate FiO2 01/27/18 12:00 97.0 93 17 144/75 (98) 96 01/27/18 09:34 158/92 01/27/18 09:00 Room Air 01/27/18 08:00 97.0 88 17 158/92 (114) 98 01/27/18 04:00 98.8 60 18 138/80 (99) 98 01/27/18 00:00 97.4 66 18 153/74 (100) 97 01/26/18 21:00 Room Air 01/26/18 20:00 97.7 78 16 148/77 (100) 97 01/26/18 17:02 152/97 01/26/18 15:50 97.6 78 20 152/97 (115) 96 Height (Feet): 5 Height (Inches): 8.00 Weight (Pounds): 129 General Appearance: no acute distress HEENT: mucous membranes moist Respiratory/Chest: normal breath sounds Cardiovascular: normal rate Abdomen: soft, non tender, other - GT feeding Extremities: no edema Skin: no rash Neurologic/Psychiatric: alert, disoriented Current Medications Medications (Trade) Dose Ordered Sig/Jess Route PRN Reason Start Time Stop Time Status Last Admin Dose Admin Acetaminophen (Tylenol) 650 mg Q4H PRN NG Fever/Headache/Mild Pain 01/23/18 12:31 02/19/18 12:30 Aspirin (Ecotrin) 81 mg DAILY ORAL 01/24/18 09:00 02/20/18 08:59 01/27/18 09:34 Atorvastatin Calcium (Lipitor) 10 mg BEDTIME GT 01/23/18 21:00 02/19/18 20:59 01/26/18 20:26 Calcium Carbonate (Os-Dionte) 1,250 mg DAILY GT 01/24/18 09:00 02/20/18 08:59 01/27/18 09:36 Dextrose (Dextrose 50%) 25 ml Q30M PRN IV Hypoglycemia 01/23/18 11:30 02/19/18 19:29 01/23/18 18:08 Dextrose (Dextrose 50%) 50 ml Q30M PRN IV Hypoglycemia 01/23/18 11:30 02/19/18 19:29 01/25/18 17:50 Divalproex Sodium (Depakote Sprinkles) 250 mg EVERY 12 HOURS GT 01/23/18 21:00 02/19/18 20:59 01/27/18 09:35 Docusate Sodium (Colace) 250 mg DAILY GT 01/24/18 09:00 02/20/18 08:59 01/27/18 09:36 Finasteride (Proscar) 5 mg DAILY ORAL 01/24/18 09:00 02/20/18 08:59 01/27/18 09:33 Heparin Sodium (Porcine) (Heparin 5000 units/ml) 5,000 units EVERY 12 HOURS SUBQ 01/23/18 21:00 02/19/18 20:59 01/27/18 09:35 Insulin Aspart (NovoLOG) Q6HR SUBQ 01/23/18 18:00 02/19/18 17:59 01/27/18 11:19 Irbesartan (Avapro) 75 mg BID GT 01/23/18 18:00 02/19/18 17:59 01/27/18 09:34 Lansoprazole (Prevacid) 30 mg DAILY GT 01/24/18 09:00 02/23/18 08:59 01/27/18 09:33 Levofloxacin (Levaquin) 500 mg Q24H ORAL 01/26/18 12:00 02/02/18 11:59 01/27/18 12:26 Magnesium Hydroxide (Mom) 30 ml DAILY GT 01/24/18 09:00 02/20/18 08:59 01/27/18 09:36 Magnesium Hydroxide (Mom) 30 ml DAILYPRN PRN ORAL Constipation 01/23/18 12:34 02/19/18 12:33 Multivitamins (Multivitamins W/ Minerals 15ml Liquid) 5 ml DAILY GT 01/24/18 09:00 02/20/18 08:59 01/27/18 09:37 Quetiapine Fumarate (SEROquel) 25 mg TID GT 01/23/18 13:00 02/19/18 17:59 01/27/18 12:26 Sennosides (Senokot) 8.6 mg DAILYPRN PRN GT Constipation 01/23/18 12:35 02/22/18 12:34 Sodium Phosphate (Fleet's Sodium Phosl Enema) 133 ml DAILYPRN PRN RECTAL Constipation 01/23/18 12:33 02/19/18 12:32 Trazodone HCl (Desyrel) 50 mg BEDTIME GT 01/23/18 21:00 02/19/18 20:59 01/26/18 20:26 Vitamin D (Vitamin D) 2,000 intlu DAILY GT 01/24/18 09:00 02/20/18 08:59 01/27/18 09:34 Surendra Stoddard MD Jan 27, 2018 14:31
[2018-01-27] MEDS ORDERED: ACETAMINOP160 MG/54 GT (15:52)
[2018-01-27] MEDS ORDERED: ASPIRIN81 MG GT (15:54)
[2018-01-27] MEDS ORDERED: ACETAMINOPHEN325 M1 GT (15:54)
[2018-01-27] MEDS ORDERED: LIPITOR80 MG GT (15:57)
[2018-01-27] MEDS ORDERED: CALCIUM CARBO2500 GM GT (15:59)
[2018-01-27 16:00] VITALS: BP 139/82
[2018-01-27] MEDS ORDERED: DEPAKOTE SPRIN125 MG GT (16:07)
[2018-01-27] MEDS ORDERED: PROSCAR5 MG ORAL ×2 (16:10→16:20)
[2018-01-27] MEDS ORDERED: HEPARIN SO5000 UNIT2 SUBQ (16:21)
[2018-01-27] MEDS ORDERED: FLEET ENEMA133 ML RECTAL (16:21)
[2018-01-27] MEDS ORDERED: NOVOLOG100 UNIT/5 SUBQ (16:22)
[2018-01-27] MEDS ORDERED: AVAPRO75 MG GT (16:23)
[2018-01-27] MEDS ORDERED: LANSOPRAZOLE30 MG GT (16:25)
[2018-01-27] MEDS ORDERED: LEVAQUIN500 MG GT (16:26)
[2018-01-27] MEDS ORDERED: SEROQUEL25 MG GT (16:27)
--- NOTE | 2018-01-28 10:00 | Discharge Summary ---
Discharge Summary Discharge Summary _ DATE OF ADMISSION: 01/20/2018 DATE OF DISCHARGE: 01/27/2018 DISCHARGED BY: Dr. Beto Donahue GYMNASTIC COACH: Dr. Nishi Camacho BRIEF HOSPITAL COURSE: Patient is a 77-year-old male, with history of Alzheimer's disease, COPD and pneumonia, presented to ED due to abnormal chest x-ray. Chest x-ray showed bibasilar pneumonia. The patient was diagnosed with hip fracture but was not a candidate for surgery and thereafter began to decline. He was recently discharged from [facility] in [place], [place] on January 10, 2018 for aspiration pneumonia. He had a G-tube placed during that hospitalization due to ongoing aspiration risk. Currently patient is nonverbal but awake. There was no distress noted. Since discharge, he has been treated with Levaquin. Chest x-ray was obtained due to persistent cough and reassessment showed pneumonia. On evaluation, vital signs stable. Blood work showed slightly elevated WBC to 11.2. Hemoglobin was 10.5, hematocrit 30, platelet count was 502. Electrolytes were stable. Lactic acid was troponin was negative. EKG showed normal sinus rhythm with normal ST elevation, no ST-T signs of ischemia. Chest x-ray showed left lung base and right infrahilar infiltrates, likely pneumonia. He was then admitted for evaluation and management of pneumonia. He was given respiratory care. He was started on IV antibiotics. He was given oxygen rotation. He was placed on heparin for DVT prophylaxis. Infectious disease specialist was consulted. He was continued on vancomycin and Zosyn pending culture results. Blood culture did not isolate any growth. MRSA nares screen was positive. He had an episode of hypoglycemia. Patient was taking glyburide. Blood glucose was monitored. He was continued on insulin sliding scale. Respiratory status was monitored. Surveillance CXR were done. Blood glucose improved. Zosyn and Vancomycin were discontinued. Antibiotics were changed to po levaquin. He was then cleared for discharge to SNF. FINAL DIAGNOSES: Pneumonia/ worsening infiltrates Leukocytosis, improved High risk for aspiration GTube status BPH MRSA colonized Diabetes with episode of hypoglycemia COPD Dementia DISPOSITION: DC to [facility]. DISCHARGE MEDICATIONS: Refer to Discharge Medication List. I have been assigned to dictate discharge summary on this account, and I was not involved in the patient's management. Chani Joshi NP Jan 28, 2018 10:00
== END 2018-01-27 16:50 | DRG 194 ==
LOC: EDBD 12:38 → EDUNIT# 12:38 → EMR 13:39 → 2E 13:55 → EDBEDREQ 14:36 → 2E 15:41 → 4E 01-23 11:40
DX: J18.9 Pneumonia, unspecified organism (principal); Z43.1 Encounter for attention to gastrostomy; N40.0 Benign prostatic hyperplasia without lower urinary tract symptoms; Z22.322 Carrier or suspected carrier of Methicillin resistant Staphylococcus aureus; E11.649 Type 2 diabetes mellitus with hypoglycemia without coma; J44.9 Chronic obstructive pulmonary disease, unspecified; G30.9 Alzheimer's disease, unspecified; F02.80 Dementia in other diseases classified elsewhere, unspecified severity, without behavioral disturbance, psychotic disturbance, mood disturbance, and anxiety
CPT/HCPCS: 36415; 70450; 71045; 80048; 80053; 80202; 82962; 83036; 83605; 83880; 84484; 85025; 87040; 87081; 93005; 93925; 94664; 96365; 96366; 96368; 99284; J1815

== ENCOUNTER 2018-02-24 15:23 | Inpatient (IN) | payer MEDICARE, OTHER ==
[~2018-02-24] VITALS: Ht 170.2 cm; Wt 68.0 kg
[~2018-02-24 15:23] MED LIST: ACETAMINOP160 MG/54 GT; ACETAMINOPHEN325 M1 GT; ALBUTEROL2.5 MG/3 M INH; ASPIRIN-LOW81 MG GT; ASPIRIN81 MG GT; AVAPRO75 MG GT; AVODART0.5 MG GT; CALCIUM CARBO2500 GM GT; CALCIUM CARBON500 M1 GT; CALCIUM LACTATE84 MG GT; DEPAKOTE SPRIN125 MG GT; DIOVAN HCT 80MG1 TAB GT; DOCUSATE SODIU100 M2 GT; FLEET ENEMA133 M1 RC; FLEET ENEMA133 ML RECTAL; GLYBURIDE2.5 MG GT; HEPARIN SO5000 UNIT2 SUBQ; LANSOPRAZOLE30 MG GT; LEVAQUIN500 MG GT; LIPITOR80 MG GT; METAMUCIL POWD174 GM GT; MOM30 ML GT; MULTI-DELYN237 ML GT; NKM; NOVOLOG100 UNIT/5 SUBQ; PRO-STAT LIQUID30 ML ORAL; PROSCAR5 MG GT; PROSCAR5 MG ORAL; SENNA8.8 MG/5 M GT; SEROQUEL25 MG GT; TRAZODONE HCL50 MG GT; UTI-STAT L3875 MG/31 GT; VITAMIN D1000 UNI1 GT; ZOCOR20 MG GT
[2018-02-24 15:26] VITALS: BP 104/59
[2018-02-24] MEDS ORDERED: Albuterol ud Inhalation HHN ONE (15:45)
[2018-02-24] MEDS ORDERED: Ipratropium 0.02% Inh Soln 2.5ml UD HHN ONE (15:45)
--- NOTE | 2018-02-24 16:13 | Emergency Room Report ---
History of Present Illness General Chief Complaint: Dyspnea/Respdistress Source: Medical Record Present Illness HPI Patient presents emergency department today complaining of severe shortness of breath. Patient apparently developed acute onset of severe shortness of breath while at [facility]. Patient has had a history of pneumonia. And has been coughing and short of breath. Patient's prior further evaluation because patient apparently had an episode of desaturation. Symptoms noted to be severe. Patient is nonverbal and unable to provide much history. All history was taken from medical records and discussion with paramedics.No other modifying factors. No other associated signs and symptoms. No other complaints were noted. Allergies: Coded Allergies: No Known Allergies (Unverified , 01/20/18) Patient History Past Medical History: HTN, CAD, pneumonia, CVA/TIA Past Surgical History: other - G-tube Pertinent Family History: none Social History Narrative stays at [facility] Reviewed Nursing Documentation: PMH: Agreed; PSxH: Agreed Nursing Documentation-PMH Past Medical History: No History, Except For Hx Cardiac Problems: Yes Hx Hypertension: Yes Hx COPD: Yes - Pneumonia Hx Diabetes: Yes Hx Cancer: No Hx Gastrointestinal Problems: Yes Hx Dialysis: Yes Hx Neurological Problems: Yes Hx Cerebrovascular Accident: Yes Hx Alzheimer's Disease: Yes Hx Speech Problem: Yes Review of Systems All Other Systems: limited - poor mental status Physical Exam Vital Signs Date Time Temp Pulse Resp B/P (MAP) Pulse Ox O2 Delivery O2 Flow Rate FiO2 02/24/18 15:26 97.5 113 18 104/59 96 Room Air 02/24/18 15:57 2.0 28 Sp02 EP Interpretation: reviewed, normal General Appearance: alert, mild distress - Short of breath Head: atraumatic Eyes: bilateral eye normal inspection ENT: normal ENT inspection, hearing grossly normal, normal voice Neck: normal inspection, full range of motion, supple, no bony tend Respiratory: decreased breath sounds, accessory muscle use, wheezing, expiration Cardiovascular #1: regular rate, rhythm, no edema Gastrointestinal: normal inspection, normal bowel sounds, non tender, soft, no guarding, no hernia, other - G-tube in place Genitourinary: no CVA tenderness Musculoskeletal: normal inspection, back normal, normal range of motion Neurologic: normal inspection, alert, responsive Psychiatric: depressed affect Skin: normal inspection, normal color, no rash Procedures Critical Care Time Critical Care Time Patient had a critical medical condition which untreated could potentially result in life or limb threatening injury. Total critical care time excluding procedures was approximately 45 minutes. Medical Decision Making Diagnostic Impression: Primary Impression: Respiratory distress Additional Impressions: COPD exacerbation UTI (urinary tract infection) ER Course Patient presents emergency department today complaining of shortness of breath. Differential diagnoses include acute pneumonia, CHF, acute coronary syndrome, pneumothorax, asthma, COPD flare, just to name a few.Given the severity of the patient's presentation I felt this is a highly complex patient. This patient required extensive workup. Patient also reportedly had a UTI. Patient's exam is consistent with COPD exacerbation. Patient was given respiratory treatments with improvement symptoms. Patient's urine is positive for UTI patient was started on IV antibiotics. Case was discussed with Dr. Donahue for admission. Patient will be admitted for further treatment. Labs Test 02/24/18 16:12 02/24/18 16:36 White Blood Count 12.2 K/UL (4.8-10.8) Red Blood Count 3.50 M/UL (4.70-6.10) Hemoglobin 11.1 G/DL (14.2-18.0) Hematocrit 33.2 % (42.0-52.0) Mean Corpuscular Volume 95 FL (80-99) Mean Corpuscular Hemoglobin 31.6 PG (27.0-31.0) Mean Corpuscular Hemoglobin Concent 33.4 G/DL (32.0-36.0) Red Cell Distribution Width 11.7 % (11.6-14.8) Platelet Count 204 K/UL (150-450) Mean Platelet Volume 8.1 FL (6.5-10.1) Neutrophils (%) (Auto) 87.9 % (45.0-75.0) Lymphocytes (%) (Auto) 7.9 % (20.0-45.0) Monocytes (%) (Auto) 3.7 % (1.0-10.0) Eosinophils (%) (Auto) 0.1 % (0.0-3.0) Basophils (%) (Auto) 0.4 % (0.0-2.0) Sodium Level 132 MMOL/L (136-145) Potassium Level 4.9 MMOL/L (3.5-5.1) Chloride Level 99 MMOL/L (98-107) Carbon Dioxide Level 27 MMOL/L (21-32) Anion Gap 6 mmol/L (5-15) Blood Urea Nitrogen 42 mg/dL (7-18) Creatinine 1.4 MG/DL (0.55-1.30) Estimat Glomerular Filtration Rate mL/min (>60) Glucose Level 128 MG/DL (74-106) Lactic Acid Level 2.00 mmol/L (0.4-2.0) Calcium Level 9.5 MG/DL (8.5-10.1) Total Bilirubin 0.3 MG/DL (0.2-1.0) Aspartate Amino Transf (AST/SGOT) 42 U/L (15-37) Alanine Aminotransferase (ALT/SGPT) 17 U/L (12-78) Alkaline Phosphatase 75 U/L (46-116) Troponin I 0.000 ng/mL (0.000-0.056) Pro-B-Type Natriuretic Peptide 1220 pg/mL (0-125) Total Protein 6.9 G/DL (6.4-8.2) Albumin 2.1 G/DL (3.4-5.0) Globulin 4.8 g/dL Albumin/Globulin Ratio 0.4 (1.0-2.7) Lipase 76 U/L (73-393) Urine Color Yellow Urine Appearance Cloudy Urine pH 5 (4.5-8.0) Urine Specific [place] 1.015 (1.005-1.035) Urine Protein 2+ (NEGATIVE) Urine Glucose (UA) Negative (NEGATIVE) Urine Ketones 1+ (NEGATIVE) Urine Blood 4+ (NEGATIVE) Urine Nitrite Negative (NEGATIVE) Urine Bilirubin Negative (NEGATIVE) Urine Urobilinogen Normal MG/DL (0.0-1.0) Urine Leukocyte Esterase 3+ (NEGATIVE) Urine RBC 5-10 /HPF (0 - 0) Urine WBC Tntc /HPF (0 - 0) Urine Squamous Epithelial Cells None /LPF (NONE/OCC) Urine Bacteria Moderate /HPF (NONE) EKG Diagnostic Results Rate: tachycardiac Rhythm: NSR ST Segments: no acute changes Rhythm Strip Diag. Results EP Interpretation: yes Rate: 120 Rhythm: NSR, no PVC's, no ectopy Chest X-Ray Diagnostic Results Chest X-Ray Diagnostic Results : Chest X-Ray Ordered: Yes # of Views/Limited/Complete: 1 View Indication: Shortness of Breath EP Interpretation: Yes Interpretation: no consolidation, no effusion, no pneumothorax, no acute cardiopulmonary disease Impression: No acute disease Electronically Signed by: Electronically signed by Carlos Copeland MD Last Vital Signs Date Time Temp Pulse Resp B/P (MAP) Pulse Ox O2 Delivery O2 Flow Rate FiO2 02/24/18 15:59 103 20 Nasal Cannula 2.0 28 02/24/18 15:57 96 02/24/18 15:26 97.5 104/59 Status: improved Disposition: ADMITTED INPATIENT Condition: Stable Carlos Copeland MD Feb 24, 2018 16:13
--- NOTE | 2018-02-24 16:24 | NUR ---
ED Nurse Note: Pt. brought in by ambulance from [facility] due to low pulse oximetry reading. Per EMS, patient's pulse oximetry reading was 90% on room air. Nursing staff at removed thick secrections. Per EMS, pt has been having SOB x about an hour upon ER arrival. Skin is intact but redness noted on the sacral are. No open wound noted. Pt. had a watery stool today. Pt was kept clean and dry.
[2018-02-24] MEDS ORDERED: Piperacillin/Tazobactam 3.375 GM in NS 110 ML IVPB ONE (17:00)
[2018-02-24 17:03] LABS: ANION GAP 6 mmol/L (5-15); BLOOD UREA NITROGEN 42 mg/dL (7-18); CALCIUM 9.5 MG/DL (8.5-10.1); CARBON DIOXIDE 27 MMOL/L (21-32); CHLORIDE 99 MMOL/L (98-107); CREATININE 1.4 MG/DL (0.55-1.30); POTASSIUM 4.9 MMOL/L (3.5-5.1); SODIUM 132 MMOL/L (136-145)
[2018-02-24 17:04] LABS: HEMATOCRIT 33.2 % (42.0-52.0); HEMOGLOBIN 11.1 G/DL (14.2-18.0); MEAN CORPUSCULAR VOLUME 95 FL (80-99); PLATELET COUNT 204 K/UL (150-450); RED CELL DISTRIBUTION WIDTH 11.7 % (11.6-14.8); WHITE BLOOD COUNT 12.2 K/UL (4.8-10.8)
[2018-02-24 17:08] LABS: BASOPHILS % (AUTO) 0.4 % (0.0-2.0); EOSINOPHILS % (AUTO) 0.1 % (0.0-3.0); LYMPHOCYTES % (AUTO) 7.9 % (20.0-45.0); MONOCYTES % (AUTO) 3.7 % (1.0-10.0); NEUTROPHILS % (AUTO) 87.9 % (45.0-75.0)
[2018-02-24 17:13] LABS: ALANINE AMINOTRANSFERASE 17 U/L (12-78); ALBUMIN 2.1 G/DL (3.4-5.0); ALBUMIN/GLOBULIN RATIO 0.4 (1.0-2.7); ALKALINE PHOSPHATASE 75 U/L (46-116); ASPARTATE AMINO TRANSFERASE 42 U/L (15-37); BILIRUBIN,TOTAL 0.3 MG/DL (0.2-1.0)
[2018-02-24 17:13] LABS: APPEARANCE,URINE CLOUDY; BILIRUBIN, URINE NEGATIVE (NEGATIVE); GLUCOSE, URINE (UA) NEGATIVE (NEGATIVE); KETONES,URINE 1+ (NEGATIVE); LEUKOCYTE ESTERASE ,URINE 3+ (NEGATIVE); NITRITE,URINE NEGATIVE (NEGATIVE); PH,URINE 5 (4.5-8.0); PROTEIN,URINE 2+ (NEGATIVE); UROBILINOGEN,URINE NORMAL MG/DL (0.0-1.0)
[2018-02-24 17:14] LABS: COLOR,URINE YELLOW
[2018-02-24] MEDS ORDERED: LANSOPRAZOLE30 MG ORAL (17:26)
[2018-02-24] MEDS ORDERED: GLUCERNA 1.5 C237 ML GT (17:26)
[2018-02-24] MEDS ORDERED: FLEET ENEMA133 ML RECTAL (17:26)
[2018-02-24] MEDS ORDERED: MULTI-DELYN237 ML GT (17:27)
[2018-02-24] MEDS ORDERED: SENNA8.8 MG/5 M GT (17:29)
--- NOTE | 2018-02-24 17:41 | Diagnostic Imaging Report ---
Indication: Chest pain Technique: One view of the chest Comparison: 01/24/2018 Findings: The lungs and pleural spaces are clear. The heart size is normal. The aorta is calcified. Previously demonstrated bilateral basilar infiltrates are no longer evident Impression: No acute process
[2018-02-24 18:51] VITALS: BP 118/63
--- NOTE | 2018-02-24 19:10 | NUR ---
ED Nurse Note: Received report from Aleshia/LYNDON. Pt is awake, with O2/2l/ NC with O2 sat 99%. waiting for bed to transfer.
[2018-02-24] MEDS ORDERED: ACETAMINOP160 MG/54 ORAL (19:12)
[2018-02-24] MEDS ORDERED: DOCUSATE S50 MG/5 ML GT (19:19)
[2018-02-24] MEDS ORDERED: ATORVASTATIN CA10 MG ORAL (19:19)
[2018-02-24] MEDS ORDERED: LEVAQUIN750 MG GT (19:31)
[2018-02-24] MEDS ORDERED: [UNRECOGNIZED DRUG - OTHER] GT (19:31)
[2018-02-24 20:00] VITALS: BP 115/75
--- NOTE | 2018-02-24 20:12 | NUR ---
TRANSFER TO FLOOR: Patient transferred to Tele/212 as ordered. Report given to Sonja/LYNDON. Belongings sent with Pt and rechecked with RN
--- NOTE | 2018-02-24 20:13 | NUR ---
NURSE NOTES: Received report from LYNDON Coburn. Patient was transferred to Telemetry unit from ER via draw sheet method, 3 staff member assist without incident. No signs of acute distress or pain noted. On 2L nasal cannula. AOx1; unable to verbalize needs. Checked IV site; patent and flushed. No erythema, bleeding, or infiltration noted. Patient put on Tele box; sinus rhythm on the monitor (90s). Left lower quadrant G-tube flushed and auscultated; patent. No residual noted. Skin assessment performed; wound photo taken. Belongings list checked; no belongings noted. Bed at lowest position, brakes on, siderails up x3. Call light within reach. Will continue to monitor.
--- NOTE | 2018-02-24 21:00 | History and Physical Report ---
DATE OF ADMISSION: 02/24/2018 PULMONARY/HISTORY AND PHYSICAL REASON FOR ADMISSION: Multidrug-resistant infection, possible pneumonia. HISTORY OF PRESENT ILLNESS: This is a 77-year-old unfortunate male, who presents to the medical center. The patient has been in the nursing facility, not under my care. The patient has a history of Alzheimer disease, chronic obstructive pulmonary disease, and pneumonia. The patient presented previously with pneumonia and treated. The patient now with urinary tract infection, difficult to treat, and admitted for further management. The patient is nonverbal at this time. The patient is noted to be somewhat congested. Cultures and results from the long-term were reviewed. The patient's urinary tract infection is sensitive to Zosyn as well as ceftazidime. The patient's care was discussed and reviewed. PAST MEDICAL HISTORY: Notable for dementia, chronic obstructive pulmonary disease, pneumonia, anemia, hepatitis, hip fracture, depression, and BPH. PAST SURGICAL HISTORY: G-tube. FAMILY HISTORY: Noncontributory. SOCIAL HISTORY: Currently, resides in a [place] [facility] facility. PHYSICAL EXAMINATION: GENERAL: The patient is a well-developed male, chronically ill. VITAL SIGNS: Blood pressure 139/82, pulse 89, respirations 19, sats 97%, and temperature 97. HEENT: Negative. NECK: Supple. No adenopathy. Oropharynx is dry. LUNGS: Moderate breath sounds. Minimal rhonchi. CARDIAC: Normal S1, S2. Regular rate and rhythm without murmurs, rubs, or gallops. ABDOMEN: Soft and nontender. G-tube in place. EXTREMITIES: No cyanosis or clubbing. There is decreased range of motion. SKIN: Turgor is adequate. Skin is otherwise noted. LABORATORY DATA: Reviewed. Notable for hemoglobin 11.2. Electrolytes all within normal limits. Albumin previously was 2.6. IMPRESSION: 1. Respiratory congestion, possible early pneumonia. 2. Urinary tract infection per history. 3. History of G-tube. 4. History of BPH. 5. History of aspiration. 6. Altered mental status. 7. Chronic encephalopathy. RECOMMENDATIONS: 1. Supportive care. 2. Hydrate. 3. IV antibiotics with Zosyn. 4. Respiratory care. 5. Follow up urine culture. 6. Resume medications. 7. G-tube feedings. 8. Monitor for change. 9. Stabilize and discharge the patient back to the [place] [facility] when improved. Beto Donahue M.D. DR: VANNA JOB#: [id number] CC:
--- NOTE | 2018-02-24 22:00 | NUR ---
NURSE NOTES: Left message for Dr. Donahue for admission orders. Awaiting callback.
--- NOTE | 2018-02-24 22:17 | NUR ---
NURSE NOTES: Received admission orders from Dr. Donahue including continuing prison medications and feedings. Noted and carried out.
[2018-02-24] MEDS ORDERED: Milk of Magnesia 30ml Ud GT PRN (22:30)
[2018-02-24] MEDS ORDERED: Acetaminophen Soln 160mg/5ml ORAL PRN (22:30)
[2018-02-24] MEDS ORDERED: Fleet's Enema 133ml RECTAL PRN ×2 (22:30→22:45)
[2018-02-25] VITALS: BP 128/85
[2018-02-25] MEDS: Piperacillin/Tazobactam 3.375 GM in NS 110 ML IVPB SCH ×3 (00:35→12:00)
[2018-02-25 04:00] VITALS: BP 123/79
[2018-02-25] MEDS: Vancomycin 1250mg/D5W 250ml 250 ML IVPB SCH (05:08)
[2018-02-25] MEDS: NovoLOG Insulin Flexpen SUBQ SCH ×3 (07:15→18:00)
--- NOTE | 2018-02-25 07:45 | NUR ---
NURSE NOTES: Patient sitting up in bed, awake and alert, in no apparent distress, bed in lowest position, call light within reach, G-tube in place.
[2018-02-25 08:00] VITALS: BP 143/79
[2018-02-25] MEDS ORDERED: Acetaminophen 650mg/20.3ml ORAL PRN (08:00)
[2018-02-25 08:03] LABS: BASOPHILS % (AUTO) 0.3 % (0.0-2.0); EOSINOPHILS % (AUTO) 0.1 % (0.0-3.0); HEMATOCRIT 29.5 % (42.0-52.0); HEMOGLOBIN 9.7 G/DL (14.2-18.0); LYMPHOCYTES % (AUTO) 20.2 % (20.0-45.0); MEAN CORPUSCULAR VOLUME 94 FL (80-99); MONOCYTES % (AUTO) 6.5 % (1.0-10.0); NEUTROPHILS % (AUTO) 72.9 % (45.0-75.0); PLATELET COUNT 255 K/UL (150-450); RED BLOOD COUNT 3.15 M/UL (4.70-6.10); RED CELL DISTRIBUTION WIDTH 12.1 % (11.6-14.8); WHITE BLOOD COUNT 8.8 K/UL (4.8-10.8)
[2018-02-25 08:21] LABS: ANION GAP 8 mmol/L (5-15); BLOOD UREA NITROGEN 33 mg/dL (7-18); CALCIUM 8.8 MG/DL (8.5-10.1); CARBON DIOXIDE 27 MMOL/L (21-32); CHLORIDE 105 MMOL/L (98-107); CREATININE 1.2 MG/DL (0.55-1.30); POTASSIUM 3.7 MMOL/L (3.5-5.1); SODIUM 140 MMOL/L (136-145)
--- NOTE | 2018-02-25 08:50 | NUR ---
HAND-OFF: Report given to LYNDON España. Patient is asleep lying semi-deng's; resting comfortably. On 2L nasal cannula. Glucerna 1.5 running at 20 mls/hr for a goal of 55 mls/hr.
--- NOTE | 2018-02-25 09:00 | Pulmonology Progress Note ---
Assessment/Plan Assessment/Plan IMPRESSION: 1. Respiratory congestion, possible early pneumonia. 2. Urinary tract infection per history. 3. History of G-tube. 4. History of BPH. 5. History of aspiration. 6. Altered mental status. 7. Chronic encephalopathy. PLAN antibiotics ID evaluation respiratory care aspiration precautions gt feeds supportive care DVT prophylaxis snf discharge when improved impression, plan, and exam edited and reviewed in detail care discussed with RN Subjective ROS Limited/Unobtainable: Yes Allergies: Coded Allergies: No Known Allergies (Unverified , 01/20/18) Subjective care noted and reviewed events noted Objective Last 24 Hour Vital Signs Date Time Temp Pulse Resp B/P (MAP) Pulse Ox O2 Delivery O2 Flow Rate FiO2 02/25/18 04:00 79 02/25/18 04:00 97.7 94 20 123/79 (94) 99 02/25/18 00:00 98.0 105 20 128/85 (99) 98 02/25/18 00:00 97 02/24/18 22:08 Nasal Cannula 2.0 02/24/18 20:12 94 02/24/18 20:12 98.6 103 22 115/62 99 Nasal Cannula 2.0 28 02/24/18 20:00 98.3 103 20 115/75 (88) 98 02/24/18 18:51 98.6 106 22 118/63 100 Nasal Cannula 2.0 28 02/24/18 16:24 122 20 99 Nasal Cannula 2.0 28 02/24/18 15:59 103 20 Nasal Cannula 2.0 28 02/24/18 15:57 105 22 96 Nasal Cannula 2.0 28 02/24/18 15:26 97.5 18 104/59 96 Room Air 02/24/18 15:26 97.5 113 18 104/59 96 Room Air 02/24/18 15:26 113 18 Room Air Intake and Output 02/24/18 02/25/18 19:00 07:00 Intake Total 1152.0 ml Output Total 0 ml Balance 0 ml 1152.0 ml Intake Free Water 100 ml IV Total 1002.0 ml Tube Feeding 50 ml Output Urine Total 0 ml # Voids 2 Objective GENERAL: The patient is a well-developed male, chronically ill. HEENT: Negative. NECK: Supple. No adenopathy. Oropharynx is dry. LUNGS: Moderate breath sounds. Minimal rhonchi. and same CARDIAC: Normal S1, S2. Regular rate and rhythm without murmurs, rubs, or gallops. ABDOMEN: Soft and nontender. G-tube in place. EXTREMITIES: No cyanosis or clubbing. There is decreased range of motion. SKIN: Turgor is adequate. Skin is otherwise noted. Microbiology Date/Time Source Procedure Growth Status 02/24/18 16:40 Nasal Nares Influenza Types A,B Antigen (EUFEMIA) - Final Complete Laboratory Tests 02/24/18 16:12: White Blood Count 12.2H, Red Blood Count 3.50L, Hemoglobin 11.1L, Hematocrit 33.2L, Mean Corpuscular Volume 95, Mean Corpuscular Hemoglobin 31.6H, Mean Corpuscular Hemoglobin Concent 33.4, Red Cell Distribution Width 11.7, Platelet Count 204, Mean Platelet Volume 8.1, Neutrophils (%) (Auto) 87.9H, Lymphocytes ( %) (Auto) 7.9L, Monocytes (%) (Auto) 3.7, Eosinophils (%) (Auto) 0.1, Basophils (%) (Auto) 0.4, Sodium Level 132L, Potassium Level 4.9, Chloride Level 99, Carbon Dioxide Level 27, Anion Gap 6, Blood Urea Nitrogen 42H, Creatinine 1.4H, Estimat Glomerular Filtration Rate , Glucose Level 128H, Lactic Acid Level 2.00 , Calcium Level 9.5, Total Bilirubin 0.3, Aspartate Amino Transf (AST/SGOT) 42H , Alanine Aminotransferase (ALT/SGPT) 17, Alkaline Phosphatase 75, Troponin I 0.000, Pro-B-Type Natriuretic Peptide 1220H, Total Protein 6.9, Albumin 2.1L, Globulin 4.8, Albumin/Globulin Ratio 0.4L, Lipase 76 02/24/18 16:36: Urine Color Yellow, Urine Appearance Cloudy, Urine pH 5, Urine Specific [place] 1.015, Urine Protein 2+H, Urine Glucose (UA) Negative, Urine Ketones 1+H, Urine Blood 4+H, Urine Nitrite Negative, Urine Bilirubin Negative, Urine Urobilinogen Normal, Urine Leukocyte Esterase 3+H, Urine RBC 5-10H, Urine WBC TntcH, Urine Squamous Epithelial Cells None, Urine Bacteria ModerateH 02/25/18 05:50: White Blood Count 8.8, Red Blood Count 3.15L, Hemoglobin 9.7L, Hematocrit 29.5L , Mean Corpuscular Volume 94, Mean Corpuscular Hemoglobin 30.9, Mean Corpuscular Hemoglobin Concent 33.0, Red Cell Distribution Width 12.1, Platelet Count 255, Mean Platelet Volume 7.8, Neutrophils (%) (Auto) 72.9, Lymphocytes (% ) (Auto) 20.2, Monocytes (%) (Auto) 6.5, Eosinophils (%) (Auto) 0.1, Basophils ( %) (Auto) 0.3, Sodium Level 140, Potassium Level 3.7, Chloride Level 105, Carbon Dioxide Level 27, Anion Gap 8, Blood Urea Nitrogen 33H, Creatinine 1.2, Estimat Glomerular Filtration Rate , Glucose Level 118H, Calcium Level 8.8 Current Medications Medications (Trade) Dose Ordered Sig/Jess Route PRN Reason Start Time Stop Time Status Last Admin Dose Admin Acetaminophen (Tylenol) 650 mg Q4H PRN ORAL Mild Pain/Temp > 100.5 02/25/18 08:00 03/26/18 22:29 Al Hydroxide/Mg Hydroxide (Mylanta) 30 ml Q4HR PRN ORAL DYSPEPSIA 02/24/18 22:30 03/26/18 22:29 Aspirin (ASA) 81 mg DAILY GT 02/25/18 09:00 03/27/18 08:59 Atorvastatin Calcium (Lipitor) 10 mg BEDTIME ORAL 02/25/18 21:00 03/27/18 20:59 Dextrose (Dextrose 50%) 25 ml Q30M PRN IV Hypoglycemia 02/24/18 22:30 03/26/18 22:29 Dextrose (Dextrose 50%) 50 ml Q30M PRN IV Hypoglycemia 02/24/18 22:30 03/26/18 22:29 Divalproex Sodium (Depakote Sprinkles) 250 mg EVERY 12 HOURS GT 02/25/18 09:00 03/27/18 08:59 Docusate Sodium (Colace) 250 mg DAILY GT 02/25/18 09:00 03/27/18 08:59 Finasteride (Proscar) 5 mg DAILY ORAL 02/25/18 09:00 03/27/18 08:59 Heparin Sodium (Porcine) (Heparin 5000 units/ml) 5,000 units EVERY 12 HOURS SUBQ 02/25/18 09:00 03/27/18 08:59 Insulin Aspart (NovoLOG) Q6HR SUBQ 02/25/18 06:00 03/27/18 05:59 02/25/18 07:15 Lansoprazole (Prevacid) 30 mg DAILY GT 02/25/18 09:00 03/27/18 08:59 Magnesium Hydroxide (Mom) 30 ml DAILY PRN GT Constipation 02/24/18 22:30 03/26/18 22:29 Non-Formulary Medication (Non-Formulary Med) 1 ea BID PRN ORAL Constipation 02/24/18 22:30 03/26/18 22:29 UNV Non-Formulary Medication (Non-Formulary Med) 1 ea DAILY ORAL 02/25/18 09:00 03/27/18 08:59 UNV Piperacillin Sod/ Tazobactam Sod 3.375 gm/Sodium Chloride 110 ml @ 27.5 mls/hr Q6HR IVPB 02/25/18 00:00 03/01/18 23:59 02/25/18 07:13 Quetiapine Fumarate (SEROquel) 25 mg THREE TIMES A DAY GT 02/25/18 09:00 03/27/18 08:59 Sodium Chloride 1,000 ml @ 100 mls/hr Q10H IV 02/24/18 22:30 03/26/18 22:29 02/25/18 00:35 Sodium Phosphate (Fleet's Sodium Phosl Enema) 133 ml DAILY PRN RECTAL Constipation 02/24/18 22:45 03/26/18 22:44 Trazodone HCl (Desyrel) 50 mg BEDTIME GT 02/25/18 21:00 03/27/18 20:59 Vancomycin HCl (Vanco rx to dose) 1 ea DAILY PRN MISC Per rx protocol 02/24/18 22:30 03/26/18 22:29 Vancomycin HCl/ Dextrose 250 ml @ 167 mls/hr Q24H IVPB 02/25/18 03:00 03/02/18 02:59 02/25/18 05:08 Vitamin D (Vitamin D) 2,000 intlu DAILY GT 02/25/18 09:00 03/27/18 08:59 Beto Donahue MD Feb 25, 2018 09:00
[2018-02-25] MEDS: Docusate 100mg/10ml Liq GT SCH (09:39)
[2018-02-25] MEDS: Aspirin Baby 81mg GT SCH (09:39)
[2018-02-25] MEDS: Vitamin D 1000 IU Tab GT SCH (09:40)
[2018-02-25] MEDS: Heparin 5000 units/ml inj SUBQ SCH ×2 (09:42→21:23)
--- NOTE | 2018-02-25 11:30 | NUR ---
RD ASSESSMENT & RECOMMENDATIONS SEE CARE ACTIVITY FOR COMPLETE ASSESSMENT DAILY ESTIMATED NEEDS: Needs based on DM, wound, underweight/ 50kg 30-35 kcals/kg 4246-4937 total kcals 1.2-1.5 g protein/kg 60-75 g total protein 25-30 mL/kg 2061-2954 total fluid mLs NUTRITION DIAGNOSIS: * Swallowing difficulty R/T dysphagia as evidenced by pt is PEG dep. * Increased kcal/prot needs R/T wound healing and underweight status as evidenced by admitted w/ stage I @ sacral, at 77% IBW w/ low BMI per guidelines. CURRENT TF:Glucerna 1.2 @ 55ml/hr x 20 hrs ENTERAL NUTRITION RECOMMENDATIONS: Glucerna 1.2 @ 55ml/hr x 24 hrs to provide 1320ml, 1584kcal, 73g prot, 1082ml free water * Rec to increase run time to 24 hours to better meet nutritional needs * HOB over 30 degrees/ water flush per MD. ADDITIONAL RECOMMENDATIONS: * Calibrated bedscale wt for accurate CBW (pt was 66", 111# on 02/17/18 per SNF) * Weekly wt monitoring given underweight status * Monitor lytes closely, replete as needed * Wound healing: add Blair 1pkt BID * Monitor BGs closely- w/ hypoglycemic episodes last adm .
[2018-02-25 12:00] VITALS: BP 150/74
--- NOTE | 2018-02-25 12:41 | NUR ---
CASE MANAGEMENT:REVIEW BIBA FROM [facility] CC: SOB. CONFUSED. 90% ON RA SI:RESPIRATORY DISTRESS. COPD EXACERBATION UTI 97.5 113 18 104/59 99% ON 2L/NC WBC+12.2 BUN+42 CR+1.4 IS: DUONEB HHN IV ZOSYN CXR BLOOD CX : TO TELEMETRY IS: IV VANCOMYCIN Q24 IV ZOSYN Q6HRS IVF@100/HR ASA GT QD DEPAKOTE GT Q12 HEPARIN SQ Q12 INTERQUAL CRITERIA MET
[2018-02-25] MEDS ORDERED: Sennosides 8.6mg tab GT PRN (13:15)
[2018-02-25] MEDS: Multivitamins W/Minerals 15 ML UDC GT SCH (13:30)
[2018-02-25] MEDS: Zosyn 3.375gm q8h **Extended infusion IVPB SCH ×4 (13:30→21:30)
[2018-02-25] MEDS: Depakote 125mg Sprinkles GT SCH ×2 (13:37→21:21)
--- NOTE | 2018-02-25 13:38 | NUR ---
NURSE NOTES: Divalproex sodium became available in [facility].
[2018-02-25 16:00] VITALS: BP 114/62
--- NOTE | 2018-02-25 16:34 | NUR ---
NURSE NOTES:WOUND CARE NOTES:Pt presents with non-blanchable erythema ,indurated ,pt flinches when palpated (L)4.2cm x (W)6.5cm. Periwound without erythema.Scrotum and bilat groin red .Both heels soft but blanchable .Pt very restless in bed ;repositions self to back after being positioned on L side. Both heels off-loaded with pillow . Tx.Plan:Apply Moisture Barrier paste to buttocks.Apply Optifoam drsg to sacrum .Change every 3 days and prn. Apply Calazime Paste to bilat groin and scrotum with each perineal care. Reposition at least every 2hours or as tolerated. Apply Cavilon to both heels and off-load with pillow.
--- NOTE | 2018-02-25 17:12 | General Progress Note ---
Assessment/Plan Problem List: (1) Respiratory distress ICD Codes: R06.03 - Acute respiratory distress SNOMED: 339297886 (2) UTI (urinary tract infection) ICD Codes: N39.0 - Urinary tract infection, site not specified SNOMED: 57312841 (3) COPD exacerbation ICD Codes: J44.1 - Chronic obstructive pulmonary disease with (acute) exacerbation SNOMED: 785093134 (4) SOB (shortness of breath) ICD Codes: R06.02 - Shortness of breath SNOMED: 248501990 Status: stable Assessment/Plan iv abx follow up cultures resp care monitor labs tube feeds monitor for aspiration dvt/stress ulcer prophylaxis Subjective ROS Limited/Unobtainable: Yes Constitutional: Reports: weakness HEENT: Reports: no symptoms Cardiovascular: Reports: no symptoms Respiratory: Reports: cough Gastrointestinal/Abdominal: Reports: no symptoms Genitourinary: Reports: no symptoms Neurologic/Psychiatric: Reports: emotional problems, pre-existing deficit Endocrine: Reports: no symptoms Hematologic/Lymphatic: Reports: anemia Allergies: Coded Allergies: No Known Allergies (Unverified , 01/20/18) All Systems: reviewed and negative except above Subjective no events. withdrawn. nonverbal. no distress. on iv abx. cultures pending. Objective Last 24 Hour Vital Signs Date Time Temp Pulse Resp B/P (MAP) Pulse Ox O2 Delivery O2 Flow Rate FiO2 02/25/18 12:00 97.8 99 18 150/74 (99) 98 02/25/18 12:00 96 02/25/18 09:00 Nasal Cannula 2.0 02/25/18 08:00 86 02/25/18 08:00 97.3 91 17 143/79 (100) 97 02/25/18 04:00 79 02/25/18 04:00 97.7 94 20 123/79 (94) 99 02/25/18 00:00 98.0 105 20 128/85 (99) 98 02/25/18 00:00 97 02/24/18 22:08 Nasal Cannula 2.0 02/24/18 20:12 94 02/24/18 20:12 98.6 103 22 115/62 99 Nasal Cannula 2.0 28 02/24/18 20:00 98.3 103 20 115/75 (88) 98 02/24/18 18:51 98.6 106 22 118/63 100 Nasal Cannula 2.0 28 Intake and Output 02/24/18 02/25/18 18:59 06:59 Intake Total 1052.0 ml Output Total 0 ml Balance 0 ml 1052.0 ml Intake Free Water 100 ml IV Total 902.0 ml Tube Feeding 50 ml Output Urine Total 0 ml # Voids 2 Laboratory Tests 02/25/18 05:50: White Blood Count 8.8, Red Blood Count 3.15L, Hemoglobin 9.7L, Hematocrit 29.5L , Mean Corpuscular Volume 94, Mean Corpuscular Hemoglobin 30.9, Mean Corpuscular Hemoglobin Concent 33.0, Red Cell Distribution Width 12.1, Platelet Count 255, Mean Platelet Volume 7.8, Neutrophils (%) (Auto) 72.9, Lymphocytes (% ) (Auto) 20.2, Monocytes (%) (Auto) 6.5, Eosinophils (%) (Auto) 0.1, Basophils ( %) (Auto) 0.3, Sodium Level 140, Potassium Level 3.7, Chloride Level 105, Carbon Dioxide Level 27, Anion Gap 8, Blood Urea Nitrogen 33H, Creatinine 1.2, Estimat Glomerular Filtration Rate , Glucose Level 118H, Calcium Level 8.8 Height (Feet): 5 Height (Inches): 7.00 Weight (Pounds): 150 General Appearance: WD/WN, alert Neck: supple Cardiovascular: normal rate, regular rhythm Respiratory/Chest: crackles/rales, rhonchi - bilaterally Abdomen: normal bowel sounds, non tender, soft Edema: no edema noted Arm (L), no edema noted Arm (R), no edema noted Leg (L), no edema noted Leg (R), no edema noted Pedal (L), no edema noted Pedal (R), no edema noted Generalized Nicolás Robbins MD Feb 25, 2018 17:12
--- NOTE | 2018-02-25 18:00 | Cardiology Report ---
APPROVED REPORT EKG Measurement Heart [id number] [place] [id number] Sinus tachycardia Otherwise normal ECG
--- NOTE | 2018-02-25 19:12 | NUR ---
HAND-OFF: Report given to Atul Rivera RN. Patient sitting HOB at 45 degrees, G-tube in place, oxygen at 2 liters nasal cannula, in no apparent distress, television on in background, bed in lowest position, call light within reach.
[2018-02-25 20:00] VITALS: BP 134/89
[2018-02-25] MEDS: TraZODone 50mg tab GT SCH (21:21)
[2018-02-26] VITALS: BP 145/91
[2018-02-26] MEDS: Vancomycin 1250mg/D5W 250ml 250 ML IVPB SCH (03:31)
[2018-02-26 04:00] VITALS: BP 144/84
[2018-02-26] MEDS: Zosyn 3.375gm q8h **Extended infusion IVPB SCH ×6 (05:46→21:40)
[2018-02-26] MEDS: NovoLOG Insulin Flexpen SUBQ SCH ×4 (06:00→17:42)
[2018-02-26 08:00] VITALS: BP 128/79
--- NOTE | 2018-02-26 08:05 | NUR ---
NURSE NOTES: Received report from LYNDON Pollard. Patient is in stable condition. No acute distress/SOB noted. Will continue plan of care.
[2018-02-26] MEDS: Multivitamins W/Minerals 15 ML UDC GT SCH (09:17)
[2018-02-26] MEDS: Depakote 125mg Sprinkles GT SCH ×2 (09:17→21:34)
[2018-02-26] MEDS: Docusate 100mg/10ml Liq GT SCH (09:17)
[2018-02-26] MEDS: Aspirin Baby 81mg GT SCH (09:17)
[2018-02-26] MEDS: Vitamin D 1000 IU Tab GT SCH (09:17)
[2018-02-26] MEDS: Heparin 5000 units/ml inj SUBQ SCH ×2 (09:18→21:36)
[2018-02-26] MEDS ORDERED: Tubing IV Secondary IV ONE (10:28)
[2018-02-26] MEDS ORDERED: NS 275ml ONE (10:28)
--- NOTE | 2018-02-26 11:21 | General Progress Note ---
Assessment/Plan Problem List: (1) Respiratory distress ICD Codes: R06.03 - Acute respiratory distress SNOMED: 507229772 (2) UTI (urinary tract infection) ICD Codes: N39.0 - Urinary tract infection, site not specified SNOMED: 24519612 (3) COPD exacerbation ICD Codes: J44.1 - Chronic obstructive pulmonary disease with (acute) exacerbation SNOMED: 020306040 (4) SOB (shortness of breath) ICD Codes: R06.02 - Shortness of breath SNOMED: 173680445 Status: stable, progressing Assessment/Plan iv abx follow up cultures resp care monitor labs tube feeds monitor for aspiration dvt/stress ulcer prophylaxis Subjective ROS Limited/Unobtainable: No Constitutional: Reports: malaise, weakness HEENT: Reports: no symptoms Cardiovascular: Reports: no symptoms Respiratory: Reports: cough, shortness of breath Gastrointestinal/Abdominal: Reports: difficulty swallowing Genitourinary: Reports: no symptoms Neurologic/Psychiatric: Reports: pre-existing deficit Endocrine: Reports: no symptoms Hematologic/Lymphatic: Reports: anemia Allergies: Coded Allergies: No Known Allergies (Unverified , 01/20/18) All Systems: reviewed and negative except above Subjective no events. withdrawn. nonverbal. no distress. on iv abx. cultures with ecoli less congested. Objective Last 24 Hour Vital Signs Date Time Temp Pulse Resp B/P (MAP) Pulse Ox O2 Delivery O2 Flow Rate FiO2 02/26/18 09:00 Nasal Cannula 2.0 02/26/18 08:00 97.7 82 20 128/79 (95) 99 02/26/18 08:00 66 02/26/18 04:00 88 02/26/18 04:00 97.8 95 18 144/84 (104) 99 02/26/18 00:00 98.3 103 17 145/91 (109) 100 02/26/18 00:00 76 02/25/18 21:00 Nasal Cannula 2.0 02/25/18 20:00 76 02/25/18 20:00 97.7 94 18 134/89 (104) 99 02/25/18 16:00 76 02/25/18 16:00 98.0 72 18 114/62 (79) 100 02/25/18 12:00 97.8 99 18 150/74 (99) 98 02/25/18 12:00 96 Intake and Output 02/25/18 02/26/18 19:00 07:00 Intake Total 1755 ml Balance 1755 ml IV Total 1150 ml Tube Feeding 605 ml # Voids 2 1 # Bowel Movements 1 Height (Feet): 5 Height (Inches): 7.00 Weight (Pounds): 150 General Appearance: WD/WN, alert, confused Neck: supple Cardiovascular: regular rhythm Respiratory/Chest: chest wall non-tender, no respiratory distress, rhonchi - bilaterally Abdomen: normal bowel sounds, non tender, soft, no organomegaly Neurologic: alert, disoriented Nicolás Robbins MD Feb 26, 2018 11:21
[2018-02-26 12:00] VITALS: BP 142/86
--- NOTE | 2018-02-26 15:29 | Pulmonology Progress Note ---
Assessment/Plan Assessment/Plan Pulmonary Progress Note Assessment/Plan IMPRESSION: 1. Respiratory congestion, possible early pneumonia, h/o COPD 2. Urinary tract infection per history. 3. History of G-tube. 4. History of BPH. 5. History of aspiration. 6. Altered mental status. 7. Chronic encephalopathy. PLAN antibiotics ID evaluation respiratory care aspiration precautions gt feeds supportive care DVT prophylaxis snf discharge when improved impression, plan, and exam edited and reviewed in detail care discussed with RN Subjective ROS Limited/Unobtainable: Yes Allergies: Coded Allergies: No Known Allergies (Unverified , 01/20/18) Subjective care noted and reviewed events noted Objective Vital Signs Noted Objective GENERAL: The patient is a well-developed male, chronically ill. HEENT: Negative. NECK: Supple. No adenopathy. Oropharynx is dry. LUNGS: Moderate breath sounds. Minimal rhonchi. and same CARDIAC: Normal S1, S2. Regular rate and rhythm without murmurs, rubs, or gallops. ABDOMEN: Soft and nontender. G-tube in place. EXTREMITIES: No cyanosis or clubbing. There is decreased range of motion. SKIN: Turgor is adequate. Skin is otherwise noted. Microbiology Date/Time Source Procedure Growth Status 02/24/18 16:40 Nasal Nares Influenza Types A,B Antigen (EUFEMIA) - Final Complete Laboratory Tests 02/24/18 16:12: White Blood Count 12.2H, Red Blood Count 3.50L, Hemoglobin 11.1L, Hematocrit 33.2L, Mean Corpuscular Volume 95, Mean Corpuscular Hemoglobin 31.6H, Mean Corpuscular Hemoglobin Concent 33.4, Red Cell Distribution Width 11.7, Platelet Count 204, Mean Platelet Volume 8.1, Neutrophils (%) (Auto) 87.9H, Lymphocytes ( %) (Auto) 7.9L, Monocytes (%) (Auto) 3.7, Eosinophils (%) (Auto) 0.1, Basophils (%) (Auto) 0.4, Sodium Level 132L, Potassium Level 4.9, Chloride Level 99, Carbon Dioxide Level 27, Anion Gap 6, Blood Urea Nitrogen 42H, Creatinine 1.4H, Estimat Glomerular Filtration Rate , Glucose Level 128H, Lactic Acid Level 2.00 , Calcium Level 9.5, Total Bilirubin 0.3, Aspartate Amino Transf (AST/SGOT) 42H , Alanine Aminotransferase (ALT/SGPT) 17, Alkaline Phosphatase 75, Troponin I 0.000, Pro-B-Type Natriuretic Peptide 1220H, Total Protein 6.9, Albumin 2.1L, Globulin 4.8, Albumin/Globulin Ratio 0.4L, Lipase 76 02/24/18 16:36: Urine Color Yellow, Urine Appearance Cloudy, Urine pH 5, Urine Specific [place] 1.015, Urine Protein 2+H, Urine Glucose (UA) Negative, Urine Ketones 1+H, Urine Blood 4+H, Urine Nitrite Negative, Urine Bilirubin Negative, Urine Urobilinogen Normal, Urine Leukocyte Esterase 3+H, Urine RBC 5-10H, Urine WBC TntcH, Urine Squamous Epithelial Cells None, Urine Bacteria ModerateH 02/25/18 05:50: White Blood Count 8.8, Red Blood Count 3.15L, Hemoglobin 9.7L, Hematocrit 29.5L , Mean Corpuscular Volume 94, Mean Corpuscular Hemoglobin 30.9, Mean Corpuscular Hemoglobin Concent 33.0, Red Cell Distribution Width 12.1, Platelet Count 255, Mean Platelet Volume 7.8, Neutrophils (%) (Auto) 72.9, Lymphocytes (% ) (Auto) 20.2, Monocytes (%) (Auto) 6.5, Eosinophils (%) (Auto) 0.1, Basophils ( %) (Auto) 0.3, Sodium Level 140, Potassium Level 3.7, Chloride Level 105, Carbon Dioxide Level 27, Anion Gap 8, Blood Urea Nitrogen 33H, Creatinine 1.2, Estimat Glomerular Filtration Rate , Glucose Level 118H, Calcium Level 8.8 Current Medications Medications (Trade) Dose Ordered Sig/Jess Route PRN Reason Start Time Stop Time Status Last Admin Dose Admin Acetaminophen (Tylenol) 650 mg Q4H PRN ORAL Mild Pain/Temp > 100.5 02/25/18 08:00 03/26/18 22:29 Al Hydroxide/Mg Hydroxide (Mylanta) 30 ml Q4HR PRN ORAL DYSPEPSIA 02/24/18 22:30 03/26/18 22:29 Aspirin (ASA) 81 mg DAILY GT 02/25/18 09:00 03/27/18 08:59 Atorvastatin Calcium (Lipitor) 10 mg BEDTIME ORAL 02/25/18 21:00 03/27/18 20:59 Dextrose (Dextrose 50%) 25 ml Q30M PRN IV Hypoglycemia 02/24/18 22:30 03/26/18 22:29 Dextrose (Dextrose 50%) 50 ml Q30M PRN IV Hypoglycemia 02/24/18 22:30 03/26/18 22:29 Divalproex Sodium (Depakote Sprinkles) 250 mg EVERY 12 HOURS GT 02/25/18 09:00 03/27/18 08:59 Docusate Sodium (Colace) 250 mg DAILY GT 02/25/18 09:00 03/27/18 08:59 Finasteride (Proscar) 5 mg DAILY ORAL 02/25/18 09:00 03/27/18 08:59 Heparin Sodium (Porcine) (Heparin 5000 units/ml) 5,000 units EVERY 12 HOURS SUBQ 02/25/18 09:00 03/27/18 08:59 Insulin Aspart (NovoLOG) Q6HR SUBQ 02/25/18 06:00 03/27/18 05:59 02/25/18 07:15 Lansoprazole (Prevacid) 30 mg DAILY GT 02/25/18 09:00 03/27/18 08:59 Magnesium Hydroxide (Mom) 30 ml DAILY PRN GT Constipation 02/24/18 22:30 03/26/18 22:29 Non-Formulary Medication (Non-Formulary Med) 1 ea BID PRN ORAL Constipation 02/24/18 22:30 03/26/18 22:29 UNV Non-Formulary Medication (Non-Formulary Med) 1 ea DAILY ORAL 02/25/18 09:00 03/27/18 08:59 UNV Piperacillin Sod/ Tazobactam Sod 3.375 gm/Sodium Chloride 110 ml @ 27.5 mls/hr Q6HR IVPB 02/25/18 00:00 03/01/18 23:59 02/25/18 07:13 Quetiapine Fumarate (SEROquel) 25 mg THREE TIMES A DAY GT 02/25/18 09:00 03/27/18 08:59 Sodium Chloride 1,000 ml @ 100 mls/hr Q10H IV 02/24/18 22:30 03/26/18 22:29 02/25/18 00:35 Sodium Phosphate (Fleet's Sodium Phosl Enema) 133 ml DAILY PRN RECTAL Constipation 02/24/18 22:45 03/26/18 22:44 Trazodone HCl (Desyrel) 50 mg BEDTIME GT 02/25/18 21:00 03/27/18 20:59 Vancomycin HCl (Vanco rx to dose) 1 ea DAILY PRN MISC Per rx protocol 02/24/18 22:30 03/26/18 22:29 Vancomycin HCl/ Dextrose 250 ml @ 167 mls/hr Q24H IVPB 02/25/18 03:00 03/02/18 02:59 02/25/18 05:08 Vitamin D (Vitamin D) 2,000 intlu DAILY GT 02/25/18 09:00 03/27/18 08:59 Subjective ROS Limited/Unobtainable: No Allergies: Coded Allergies: No Known Allergies (Unverified , 01/20/18) Objective Last 24 Hour Vital Signs Date Time Temp Pulse Resp B/P (MAP) Pulse Ox O2 Delivery O2 Flow Rate FiO2 02/26/18 12:00 97.8 86 20 142/86 (104) 99 02/26/18 12:00 64 02/26/18 09:00 Nasal Cannula 2.0 02/26/18 08:00 97.7 82 20 128/79 (95) 99 02/26/18 08:00 66 02/26/18 04:00 88 02/26/18 04:00 97.8 95 18 144/84 (104) 99 02/26/18 00:00 98.3 103 17 145/91 (109) 100 02/26/18 00:00 76 02/25/18 21:00 Nasal Cannula 2.0 02/25/18 20:00 76 02/25/18 20:00 97.7 94 18 134/89 (104) 99 02/25/18 16:00 76 02/25/18 16:00 98.0 72 18 114/62 (79) 100 Intake and Output 02/25/18 02/26/18 19:00 07:00 Intake Total 1755 ml Balance 1755 ml IV Total 1150 ml Tube Feeding 605 ml # Voids 2 1 # Bowel Movements 1 Microbiology Date/Time Source Procedure Growth Status 02/24/18 16:12 Blood Blood Culture - Preliminary NO GROWTH AFTER 24 HOURS Resulted 02/24/18 16:09 Blood Blood Culture - Preliminary NO GROWTH AFTER 24 HOURS Resulted 02/24/18 18:30 Nasal Nares MRSA Culture - Final Staphylococcus Aureus - Mrsa Complete 02/24/18 16:40 Nasal Nares Influenza Types A,B Antigen (EUFEMIA) - Final Complete 02/24/18 16:36 Urine,Clean Catch Urine Culture - Preliminary Escherichia Coli Resulted 02/24/18 18:30 Rectum VRE Culture - Final Enterococcus Faecalis - Vre Complete 02/24/18 18:30 Rectum - Final NO CARBAPENEM-RESISTANT ENTEROBACTERI... Complete Current Medications Medications (Trade) Dose Ordered Sig/Jess Route PRN Reason Start Time Stop Time Status Last Admin Dose Admin Acetaminophen (Tylenol) 650 mg Q4H PRN ORAL Mild Pain/Temp > 100.5 02/25/18 08:00 03/26/18 22:29 Al Hydroxide/Mg Hydroxide (Mylanta) 30 ml Q4HR PRN ORAL DYSPEPSIA 02/24/18 22:30 03/26/18 22:29 Aspirin (ASA) 81 mg DAILY GT 02/25/18 09:00 03/27/18 08:59 02/26/18 09:17 Atorvastatin Calcium (Lipitor) 10 mg BEDTIME ORAL 02/25/18 21:00 03/27/18 20:59 02/25/18 21:21 Dextrose (Dextrose 50%) 25 ml Q30M PRN IV Hypoglycemia 02/24/18 22:30 03/26/18 22:29 Dextrose (Dextrose 50%) 50 ml Q30M PRN IV Hypoglycemia 02/24/18 22:30 03/26/18 22:29 Divalproex Sodium (Depakote Sprinkles) 250 mg EVERY 12 HOURS GT 02/25/18 09:00 03/27/18 08:59 02/26/18 09:17 Docusate Sodium (Colace) 250 mg DAILY GT 02/25/18 09:00 03/27/18 08:59 02/26/18 09:17 Finasteride (Proscar) 5 mg DAILY ORAL 02/25/18 09:00 03/27/18 08:59 02/26/18 09:17 Heparin Sodium (Porcine) (Heparin 5000 units/ml) 5,000 units EVERY 12 HOURS SUBQ 02/25/18 09:00 03/27/18 08:59 02/26/18 09:18 Insulin Aspart (NovoLOG) Q6HR SUBQ 02/25/18 06:00 03/27/18 05:59 02/25/18 07:15 Lansoprazole (Prevacid) 30 mg DAILY GT 02/25/18 09:00 03/27/18 08:59 02/26/18 09:17 Magnesium Hydroxide (Mom) 30 ml DAILY PRN GT Constipation 02/24/18 22:30 03/26/18 22:29 Multivitamins (Multivitamins W/ Minerals 15ml Liquid) 15 ml DAILY GT 02/25/18 14:00 03/27/18 13:59 02/26/18 09:17 Piperacillin Sod/ Tazobactam Sod 3.375 gm/Sodium Chloride 110 ml @ 27.5 mls/hr EVERY 8 HOURS IVPB 02/25/18 14:00 03/02/18 13:59 02/26/18 13:28 Quetiapine Fumarate (SEROquel) 25 mg THREE TIMES A DAY GT 02/25/18 09:00 03/27/18 08:59 02/26/18 12:53 Sennosides (Senokot) 8.6 mg BIDPRN PRN GT Constipation 02/25/18 13:15 03/27/18 13:14 Sodium Chloride 1,000 ml @ 100 mls/hr Q10H IV 02/24/18 22:30 03/26/18 22:29 02/26/18 13:38 Sodium Phosphate (Fleet's Sodium Phosl Enema) 133 ml DAILY PRN RECTAL Constipation 02/24/18 22:45 03/26/18 22:44 Trazodone HCl (Desyrel) 50 mg BEDTIME GT 02/25/18 21:00 03/27/18 20:59 02/25/18 21:21 Vancomycin HCl (Vanco rx to dose) 1 ea DAILY PRN MISC Per rx protocol 02/24/18 22:30 03/26/18 22:29 Vancomycin HCl/ Dextrose 250 ml @ 167 mls/hr Q24H IVPB 02/25/18 03:00 03/02/18 02:59 02/26/18 03:31 Vitamin D (Vitamin D) 2,000 intlu DAILY GT 02/25/18 09:00 03/27/18 08:59 02/26/18 09:17 Hussain Stein MD Feb 26, 2018 15:29
[2018-02-26 16:00] VITALS: BP_SYST 123; BP_SYST 135; BP_DIAS 79; BP_DIAS 80
--- NOTE | 2018-02-26 17:59 | NUR ---
NURSE NOTES: Dr. Donahue made aware that pt is positive for VRE rectum. No new order.
--- NOTE | 2018-02-26 19:32 | NUR ---
HAND-OFF: Report given to LYNDON Pollard. Patient is in stable condition. Endorsed plan of care.
[2018-02-26 20:00] VITALS: BP 138/89
[2018-02-26] MEDS: TraZODone 50mg tab GT SCH (21:34)
[2018-02-27] VITALS: BP 145/84
[2018-02-27] MEDS: Vancomycin 1250mg/D5W 250ml 250 ML IVPB SCH (03:19)
[2018-02-27 04:00] VITALS: BP 141/79
[2018-02-27] MEDS: Zosyn 3.375gm q8h **Extended infusion IVPB SCH ×6 (05:53→22:02)
[2018-02-27] MEDS: NovoLOG Insulin Flexpen SUBQ SCH ×4 (05:56→17:50)
--- NOTE | 2018-02-27 07:46 | NUR ---
NURSE NOTES: Received report from LYNDON Pollard. Patient is in stable condition. No acute distress/SOB noted. Patient denies any pain/discomfort. Will continue plan of care.
[2018-02-27 08:00] VITALS: BP 155/83
[2018-02-27] MEDS: Aspirin Baby 81mg GT SCH (08:24)
[2018-02-27] MEDS: Depakote 125mg Sprinkles GT SCH ×2 (08:25→20:32)
[2018-02-27] MEDS: Docusate 100mg/10ml Liq GT SCH (08:25)
[2018-02-27] MEDS: Multivitamins W/Minerals 15 ML UDC GT SCH (08:26)
[2018-02-27] MEDS: Vitamin D 1000 IU Tab GT SCH (08:27)
[2018-02-27] MEDS: Heparin 5000 units/ml inj SUBQ SCH ×2 (08:28→20:33)
--- NOTE | 2018-02-27 09:12 | NUR ---
NURSE NOTES: Informed Dr. Donahue that patient is positive for ESBL urine. No new order. Continue same antibiotics.
--- NOTE | 2018-02-27 09:49 | General Progress Note ---
Assessment/Plan Problem List: (1) Respiratory distress ICD Codes: R06.03 - Acute respiratory distress SNOMED: 423183409 (2) UTI (urinary tract infection) ICD Codes: N39.0 - Urinary tract infection, site not specified SNOMED: 52628191 (3) COPD exacerbation ICD Codes: J44.1 - Chronic obstructive pulmonary disease with (acute) exacerbation SNOMED: 395062976 (4) SOB (shortness of breath) ICD Codes: R06.02 - Shortness of breath SNOMED: 158713646 Status: stable, progressing Assessment/Plan iv abx follow up cultures resp care monitor labs tube feeds monitor for aspiration dvt/stress ulcer prophylaxis Subjective ROS Limited/Unobtainable: No Constitutional: Reports: malaise, weakness HEENT: Reports: no symptoms Cardiovascular: Reports: no symptoms Respiratory: Reports: no symptoms Gastrointestinal/Abdominal: Reports: difficulty swallowing Genitourinary: Reports: no symptoms Neurologic/Psychiatric: Reports: pre-existing deficit Endocrine: Reports: no symptoms Hematologic/Lymphatic: Reports: anemia Allergies: Coded Allergies: No Known Allergies (Unverified , 01/20/18) All Systems: reviewed and negative except above Subjective no events. withdrawn. nonverbal. no distress. on iv abx. cultures with ecoli less congested. on feeds. confused at baseline Objective Last 24 Hour Vital Signs Date Time Temp Pulse Resp B/P (MAP) Pulse Ox O2 Delivery O2 Flow Rate FiO2 02/27/18 09:00 Nasal Cannula 2.0 02/27/18 08:00 97.8 61 20 155/83 (107) 96 02/27/18 07:34 84 02/27/18 04:00 85 02/27/18 04:00 97.3 84 16 141/79 (99) 97 02/27/18 00:00 76 02/27/18 00:00 97.8 88 19 145/84 (104) 99 02/26/18 21:00 Nasal Cannula 2.0 02/26/18 20:00 88 02/26/18 20:00 97.7 75 17 138/89 (105) 99 02/26/18 16:00 68 02/26/18 16:00 98.0 76 20 135/80 (98) 96 02/26/18 12:00 97.8 86 20 142/86 (104) 99 02/26/18 12:00 64 Intake and Output 02/26/18 02/27/18 19:00 07:00 Intake Total 55 ml 1005 ml Balance 55 ml 1005 ml Intake Free Water 400 ml Tube Feeding 55 ml 605 ml # Voids 3 # Bowel Movements 1 Height (Feet): 5 Height (Inches): 7.00 Weight (Pounds): 150 Objective General Appearance: WD/WN, alert, confused Neck: supple Cardiovascular: regular rhythm Respiratory/Chest: chest wall non-tender, no respiratory distress, rhonchi - bilaterally Abdomen: normal bowel sounds, non tender, soft, no organomegaly Neurologic: alert, disoriented Nicolás Robbins MD Feb 27, 2018 09:49
[2018-02-27 12:00] VITALS: BP 148/83
[2018-02-27 16:00] VITALS: BP 143/88
--- NOTE | 2018-02-27 16:54 | NUR ---
NURSE NOTES: Provided partial bed bath and put condom cath. Will continue plan of care.
--- NOTE | 2018-02-27 18:37 | Pulmonology Progress Note ---
Assessment/Plan Assessment/Plan Pulmonary Progress Note Assessment/Plan IMPRESSION: 1. Respiratory congestion, possible early pneumonia, h/o COPD 2. Urinary tract infection per history. 3. History of G-tube. 4. History of BPH. 5. History of aspiration. 6. Altered mental status. 7. Chronic encephalopathy. PLAN antibiotics ID evaluation respiratory care aspiration precautions gt feeds supportive care DVT prophylaxis snf discharge when improved impression, plan, and exam edited and reviewed in detail care discussed with RN Subjective ROS Limited/Unobtainable: Yes Allergies: Coded Allergies: No Known Allergies (Unverified , 01/20/18) Subjective care noted and reviewed events noted Objective Vital Signs Noted Objective GENERAL: The patient is a well-developed male, chronically ill. HEENT: Negative. NECK: Supple. No adenopathy. Oropharynx is dry. LUNGS: Moderate breath sounds. Minimal rhonchi. and same CARDIAC: Normal S1, S2. Regular rate and rhythm without murmurs, rubs, or gallops. ABDOMEN: Soft and nontender. G-tube in place. EXTREMITIES: No cyanosis or clubbing. There is decreased range of motion. SKIN: Turgor is adequate. Skin is otherwise noted. Microbiology Date/Time Source Procedure Growth Status 02/24/18 16:40 Nasal Nares Influenza Types A,B Antigen (EUFEMIA) - Final Complete Laboratory Tests 02/24/18 16:12: White Blood Count 12.2H, Red Blood Count 3.50L, Hemoglobin 11.1L, Hematocrit 33.2L, Mean Corpuscular Volume 95, Mean Corpuscular Hemoglobin 31.6H, Mean Corpuscular Hemoglobin Concent 33.4, Red Cell Distribution Width 11.7, Platelet Count 204, Mean Platelet Volume 8.1, Neutrophils (%) (Auto) 87.9H, Lymphocytes ( %) (Auto) 7.9L, Monocytes (%) (Auto) 3.7, Eosinophils (%) (Auto) 0.1, Basophils (%) (Auto) 0.4, Sodium Level 132L, Potassium Level 4.9, Chloride Level 99, Carbon Dioxide Level 27, Anion Gap 6, Blood Urea Nitrogen 42H, Creatinine 1.4H, Estimat Glomerular Filtration Rate , Glucose Level 128H, Lactic Acid Level 2.00 , Calcium Level 9.5, Total Bilirubin 0.3, Aspartate Amino Transf (AST/SGOT) 42H , Alanine Aminotransferase (ALT/SGPT) 17, Alkaline Phosphatase 75, Troponin I 0.000, Pro-B-Type Natriuretic Peptide 1220H, Total Protein 6.9, Albumin 2.1L, Globulin 4.8, Albumin/Globulin Ratio 0.4L, Lipase 76 02/24/18 16:36: Urine Color Yellow, Urine Appearance Cloudy, Urine pH 5, Urine Specific [place] 1.015, Urine Protein 2+H, Urine Glucose (UA) Negative, Urine Ketones 1+H, Urine Blood 4+H, Urine Nitrite Negative, Urine Bilirubin Negative, Urine Urobilinogen Normal, Urine Leukocyte Esterase 3+H, Urine RBC 5-10H, Urine WBC TntcH, Urine Squamous Epithelial Cells None, Urine Bacteria ModerateH 02/25/18 05:50: White Blood Count 8.8, Red Blood Count 3.15L, Hemoglobin 9.7L, Hematocrit 29.5L , Mean Corpuscular Volume 94, Mean Corpuscular Hemoglobin 30.9, Mean Corpuscular Hemoglobin Concent 33.0, Red Cell Distribution Width 12.1, Platelet Count 255, Mean Platelet Volume 7.8, Neutrophils (%) (Auto) 72.9, Lymphocytes (% ) (Auto) 20.2, Monocytes (%) (Auto) 6.5, Eosinophils (%) (Auto) 0.1, Basophils ( %) (Auto) 0.3, Sodium Level 140, Potassium Level 3.7, Chloride Level 105, Carbon Dioxide Level 27, Anion Gap 8, Blood Urea Nitrogen 33H, Creatinine 1.2, Estimat Glomerular Filtration Rate , Glucose Level 118H, Calcium Level 8.8 Current Medications Medications (Trade) Dose Ordered Sig/Jess Route PRN Reason Start Time Stop Time Status Last Admin Dose Admin Acetaminophen (Tylenol) 650 mg Q4H PRN ORAL Mild Pain/Temp > 100.5 02/25/18 08:00 03/26/18 22:29 Al Hydroxide/Mg Hydroxide (Mylanta) 30 ml Q4HR PRN ORAL DYSPEPSIA 02/24/18 22:30 03/26/18 22:29 Aspirin (ASA) 81 mg DAILY GT 02/25/18 09:00 03/27/18 08:59 Atorvastatin Calcium (Lipitor) 10 mg BEDTIME ORAL 02/25/18 21:00 03/27/18 20:59 Dextrose (Dextrose 50%) 25 ml Q30M PRN IV Hypoglycemia 02/24/18 22:30 03/26/18 22:29 Dextrose (Dextrose 50%) 50 ml Q30M PRN IV Hypoglycemia 02/24/18 22:30 03/26/18 22:29 Divalproex Sodium (Depakote Sprinkles) 250 mg EVERY 12 HOURS GT 02/25/18 09:00 03/27/18 08:59 Docusate Sodium (Colace) 250 mg DAILY GT 02/25/18 09:00 03/27/18 08:59 Finasteride (Proscar) 5 mg DAILY ORAL 02/25/18 09:00 03/27/18 08:59 Heparin Sodium (Porcine) (Heparin 5000 units/ml) 5,000 units EVERY 12 HOURS SUBQ 02/25/18 09:00 03/27/18 08:59 Insulin Aspart (NovoLOG) Q6HR SUBQ 02/25/18 06:00 03/27/18 05:59 02/25/18 07:15 Lansoprazole (Prevacid) 30 mg DAILY GT 02/25/18 09:00 03/27/18 08:59 Magnesium Hydroxide (Mom) 30 ml DAILY PRN GT Constipation 02/24/18 22:30 03/26/18 22:29 Non-Formulary Medication (Non-Formulary Med) 1 ea BID PRN ORAL Constipation 02/24/18 22:30 03/26/18 22:29 UNV Non-Formulary Medication (Non-Formulary Med) 1 ea DAILY ORAL 02/25/18 09:00 03/27/18 08:59 UNV Piperacillin Sod/ Tazobactam Sod 3.375 gm/Sodium Chloride 110 ml @ 27.5 mls/hr Q6HR IVPB 02/25/18 00:00 03/01/18 23:59 02/25/18 07:13 Quetiapine Fumarate (SEROquel) 25 mg THREE TIMES A DAY GT 02/25/18 09:00 03/27/18 08:59 Sodium Chloride 1,000 ml @ 100 mls/hr Q10H IV 02/24/18 22:30 03/26/18 22:29 02/25/18 00:35 Sodium Phosphate (Fleet's Sodium Phosl Enema) 133 ml DAILY PRN RECTAL Constipation 02/24/18 22:45 03/26/18 22:44 Trazodone HCl (Desyrel) 50 mg BEDTIME GT 02/25/18 21:00 03/27/18 20:59 Vancomycin HCl (Vanco rx to dose) 1 ea DAILY PRN MISC Per rx protocol 02/24/18 22:30 03/26/18 22:29 Vancomycin HCl/ Dextrose 250 ml @ 167 mls/hr Q24H IVPB 02/25/18 03:00 03/02/18 02:59 02/25/18 05:08 Vitamin D (Vitamin D) 2,000 intlu DAILY GT 02/25/18 09:00 03/27/18 08:59 Subjective ROS Limited/Unobtainable: No Allergies: Coded Allergies: No Known Allergies (Unverified , 01/20/18) Objective Last 24 Hour Vital Signs Date Time Temp Pulse Resp B/P (MAP) Pulse Ox O2 Delivery O2 Flow Rate FiO2 02/27/18 16:00 97.9 65 20 143/88 (106) 98 02/27/18 16:00 83 02/27/18 12:00 72 02/27/18 12:00 97.8 72 18 148/83 (104) 99 02/27/18 09:00 Nasal Cannula 2.0 02/27/18 08:00 97.8 61 20 155/83 (107) 96 02/27/18 07:34 84 02/27/18 04:00 85 02/27/18 04:00 97.3 84 16 141/79 (99) 97 02/27/18 00:00 76 02/27/18 00:00 97.8 88 19 145/84 (104) 99 02/26/18 21:00 Nasal Cannula 2.0 02/26/18 20:00 88 02/26/18 20:00 97.7 75 17 138/89 (105) 99 Intake and Output 02/26/18 02/27/18 19:00 07:00 Intake Total 55 ml 1005 ml Balance 55 ml 1005 ml Intake Free Water 400 ml Tube Feeding 55 ml 605 ml # Voids 3 # Bowel Movements 1 Current Medications Medications (Trade) Dose Ordered Sig/Jess Route PRN Reason Start Time Stop Time Status Last Admin Dose Admin Acetaminophen (Tylenol) 650 mg Q4H PRN ORAL Mild Pain/Temp > 100.5 02/25/18 08:00 2/9/19 22:29 Al Hydroxide/Mg Hydroxide (Mylanta) 30 ml Q4HR PRN ORAL DYSPEPSIA 02/24/18 22:30 03/26/18 22:29 Aspirin (ASA) 81 mg DAILY GT 02/25/18 09:00 03/27/18 08:59 02/27/18 08:24 Atorvastatin Calcium (Lipitor) 10 mg BEDTIME ORAL 02/25/18 21:00 03/27/18 20:59 02/26/18 21:33 Dextrose (Dextrose 50%) 25 ml Q30M PRN IV Hypoglycemia 02/24/18 22:30 03/26/18 22:29 Dextrose (Dextrose 50%) 50 ml Q30M PRN IV Hypoglycemia 02/24/18 22:30 03/26/18 22:29 Divalproex Sodium (Depakote Sprinkles) 250 mg EVERY 12 HOURS GT 02/25/18 09:00 03/27/18 08:59 02/27/18 08:25 Docusate Sodium (Colace) 250 mg DAILY GT 02/25/18 09:00 03/27/18 08:59 02/27/18 08:25 Finasteride (Proscar) 5 mg DAILY ORAL 02/25/18 09:00 03/27/18 08:59 02/27/18 08:27 Heparin Sodium (Porcine) (Heparin 5000 units/ml) 5,000 units EVERY 12 HOURS SUBQ 02/25/18 09:00 03/27/18 08:59 02/27/18 08:28 Insulin Aspart (NovoLOG) Q6HR SUBQ 02/25/18 06:00 03/27/18 05:59 02/27/18 11:48 Lansoprazole (Prevacid) 30 mg DAILY GT 02/25/18 09:00 03/27/18 08:59 02/27/18 08:26 Magnesium Hydroxide (Mom) 30 ml DAILY PRN GT Constipation 02/24/18 22:30 03/26/18 22:29 Multivitamins (Multivitamins W/ Minerals 15ml Liquid) 15 ml DAILY GT 02/25/18 14:00 03/27/18 13:59 02/27/18 08:26 Piperacillin Sod/ Tazobactam Sod 3.375 gm/Sodium Chloride 110 ml @ 27.5 mls/hr EVERY 8 HOURS IVPB 02/25/18 14:00 03/02/18 13:59 02/27/18 13:23 Quetiapine Fumarate (SEROquel) 25 mg THREE TIMES A DAY GT 02/25/18 09:00 03/27/18 08:59 02/27/18 18:02 Sennosides (Senokot) 8.6 mg BIDPRN PRN GT Constipation 02/25/18 13:15 03/27/18 13:14 Sodium Chloride 1,000 ml @ 100 mls/hr Q10H IV 02/24/18 22:30 03/26/18 22:29 02/27/18 10:18 Sodium Phosphate (Fleet's Sodium Phosl Enema) 133 ml DAILY PRN RECTAL Constipation 02/24/18 22:45 03/26/18 22:44 Trazodone HCl (Desyrel) 50 mg BEDTIME GT 02/25/18 21:00 03/27/18 20:59 02/26/18 21:34 Vancomycin HCl (Vanco rx to dose) 1 ea DAILY PRN MISC Per rx protocol 02/24/18 22:30 03/26/18 22:29 Vancomycin HCl/ Dextrose 250 ml @ 167 mls/hr Q24H IVPB 02/25/18 03:00 03/02/18 02:59 02/27/18 03:19 Vitamin D (Vitamin D) 2,000 intlu DAILY GT 02/25/18 09:00 03/27/18 08:59 02/27/18 08:27 Hussain Stein MD Feb 27, 2018 18:37
--- NOTE | 2018-02-27 19:43 | NUR ---
NURSE NOTES: Patient is in stable condition. Will continue plan of care.
[2018-02-27 20:00] VITALS: BP 151/84
[2018-02-27] MEDS: TraZODone 50mg tab GT SCH (20:32)
--- NOTE | 2018-02-27 23:27 | NUR ---
HAND-OFF: Report given to LYNDON Lui. Patient is in stable condition. Endorsed plan of care.
[2018-02-28] VITALS: BP 152/68
--- NOTE | 2018-02-28 00:05 | NUR ---
NURSE NOTES: pt asleep arousable , no distress. no sob. no residual on gt. gt patent and intact, hob elevated >30degrees. on 2lnc. call light within reach. will monitor.
[2018-02-28] MEDS ORDERED: Vancomycin 750mg/NS 250ml IVPB SCH (03:00)
[2018-02-28 04:22] VITALS: BP 101/90
[2018-02-28] MEDS: NovoLOG Insulin Flexpen SUBQ SCH ×3 (05:55→12:00)
[2018-02-28] MEDS: Zosyn 3.375gm q8h **Extended infusion IVPB SCH ×4 (05:55→14:06)
--- NOTE | 2018-02-28 07:00 | NUR ---
NURSE NOTES: received patient report from renzo lipscomb. patient is on bed awake. no acute distress noted. no arrythmias reported during the night. patient able to open eyes spontaneously.NC if off. glucerna 1.5 running at prescribed rate. will continue to monitor.
--- NOTE | 2018-02-28 07:21 | NUR ---
HAND-OFF: Report given to PAUL HANEY.
--- NOTE | 2018-02-28 07:44 | Pulmonology Progress Note ---
Assessment/Plan Assessment/Plan IMPRESSION: 1. Respiratory congestion, possible early pneumonia. 2. Urinary tract infection per history. 3. History of G-tube. 4. History of BPH. 5. History of aspiration. 6. Altered mental status. 7. Chronic encephalopathy. PLAN antibiotics IV zosyn adequate respiratory care aspiration precautions gt feeds supportive care DVT prophylaxis snf discharge impression, plan, and exam edited and reviewed in detail care discussed with RN Subjective ROS Limited/Unobtainable: Yes Allergies: Coded Allergies: No Known Allergies (Unverified , 01/20/18) Subjective care noted and reviewed events noted appears stable Objective Last 24 Hour Vital Signs Date Time Temp Pulse Resp B/P (MAP) Pulse Ox O2 Delivery O2 Flow Rate FiO2 02/28/18 04:22 97.7 70 19 101/90 (94) 98 02/28/18 03:21 75 02/28/18 00:00 97.7 76 19 152/68 (96) 98 02/27/18 23:58 Nasal Cannula 2.0 02/27/18 23:26 66 02/27/18 21:00 Nasal Cannula 2.0 02/27/18 20:00 73 02/27/18 20:00 97.6 84 19 151/84 (106) 98 02/27/18 16:00 97.9 65 20 143/88 (106) 98 02/27/18 16:00 83 02/27/18 12:00 72 02/27/18 12:00 97.8 72 18 148/83 (104) 99 02/27/18 09:00 Nasal Cannula 2.0 02/27/18 08:00 97.8 61 20 155/83 (107) 96 Intake and Output 02/27/18 02/28/18 19:00 07:00 Intake Total 567.5 ml Output Total 2000 ml Balance -1432.5 ml Intake Free Water 100 ml IV Total 82.5 ml Tube Feeding 385 ml Output Urine Total 2000 ml # Voids 3 # Bowel Movements 1 2 Objective GENERAL: The patient is a well-developed male, chronically ill. HEENT: Negative. NECK: Supple. No adenopathy. Oropharynx is dry. LUNGS: Moderate breath sounds. Minimal rhonchi. and same CARDIAC: Normal S1, S2. Regular rate and rhythm without murmurs, rubs, or gallops. ABDOMEN: Soft and nontender. G-tube in place. EXTREMITIES: No cyanosis or clubbing. There is decreased range of motion. SKIN: Turgor is adequate. Skin is otherwise noted. Laboratory Tests 02/28/18 02:00: Vancomycin Level Trough 10.8 Current Medications Medications (Trade) Dose Ordered Sig/Jess Route PRN Reason Start Time Stop Time Status Last Admin Dose Admin Acetaminophen (Tylenol) 650 mg Q4H PRN ORAL Mild Pain/Temp > 100.5 02/25/18 08:00 03/26/18 22:29 Al Hydroxide/Mg Hydroxide (Mylanta) 30 ml Q4HR PRN ORAL DYSPEPSIA 02/24/18 22:30 03/26/18 22:29 Aspirin (ASA) 81 mg DAILY GT 02/25/18 09:00 03/27/18 08:59 02/27/18 08:24 Atorvastatin Calcium (Lipitor) 10 mg BEDTIME ORAL 02/25/18 21:00 03/27/18 20:59 02/27/18 20:32 Dextrose (Dextrose 50%) 25 ml Q30M PRN IV Hypoglycemia 02/24/18 22:30 03/26/18 22:29 Dextrose (Dextrose 50%) 50 ml Q30M PRN IV Hypoglycemia 02/24/18 22:30 03/26/18 22:29 Divalproex Sodium (Depakote Sprinkles) 250 mg EVERY 12 HOURS GT 02/25/18 09:00 03/27/18 08:59 02/27/18 20:32 Docusate Sodium (Colace) 250 mg DAILY GT 02/25/18 09:00 03/27/18 08:59 02/27/18 08:25 Finasteride (Proscar) 5 mg DAILY ORAL 02/25/18 09:00 03/27/18 08:59 02/27/18 08:27 Heparin Sodium (Porcine) (Heparin 5000 units/ml) 5,000 units EVERY 12 HOURS SUBQ 02/25/18 09:00 03/27/18 08:59 02/27/18 20:33 Insulin Aspart (NovoLOG) Q6HR SUBQ 02/25/18 06:00 03/27/18 05:59 02/27/18 11:48 Lansoprazole (Prevacid) 30 mg DAILY GT 02/25/18 09:00 03/27/18 08:59 02/27/18 08:26 Magnesium Hydroxide (Mom) 30 ml DAILY PRN GT Constipation 02/24/18 22:30 03/26/18 22:29 Multivitamins (Multivitamins W/ Minerals 15ml Liquid) 15 ml DAILY GT 02/25/18 14:00 03/27/18 13:59 02/27/18 08:26 Piperacillin Sod/ Tazobactam Sod 3.375 gm/Sodium Chloride 110 ml @ 27.5 mls/hr EVERY 8 HOURS IVPB 02/25/18 14:00 03/02/18 13:59 02/28/18 05:55 Quetiapine Fumarate (SEROquel) 25 mg THREE TIMES A DAY GT 02/25/18 09:00 03/27/18 08:59 02/27/18 18:02 Sennosides (Senokot) 8.6 mg BIDPRN PRN GT Constipation 02/25/18 13:15 03/27/18 13:14 Sodium Chloride 1,000 ml @ 100 mls/hr Q10H IV 02/24/18 22:30 03/26/18 22:29 02/28/18 06:31 Sodium Phosphate (Fleet's Sodium Phosl Enema) 133 ml DAILY PRN RECTAL Constipation 02/24/18 22:45 03/26/18 22:44 Trazodone HCl (Desyrel) 50 mg BEDTIME GT 02/25/18 21:00 03/27/18 20:59 02/27/18 20:32 Vancomycin HCl (Vanco rx to dose) 1 ea DAILY PRN MISC Per rx protocol 02/24/18 22:30 03/26/18 22:29 Vancomycin/Sodium Chloride 250 ml @ 166.667 mls/hr Q12H IVPB 02/28/18 03:00 03/05/18 02:59 02/28/18 03:11 Vitamin D (Vitamin D) 2,000 intlu DAILY GT 02/25/18 09:00 03/27/18 08:59 02/27/18 08:27 Bteo Donahue MD Feb 28, 2018 07:44
--- NOTE | 2018-02-28 07:50 | General Progress Note ---
Assessment/Plan Problem List: (1) Respiratory distress ICD Codes: R06.03 - Acute respiratory distress SNOMED: 839768540 (2) UTI (urinary tract infection) ICD Codes: N39.0 - Urinary tract infection, site not specified SNOMED: 89124292 (3) COPD exacerbation ICD Codes: J44.1 - Chronic obstructive pulmonary disease with (acute) exacerbation SNOMED: 167236080 (4) SOB (shortness of breath) ICD Codes: R06.02 - Shortness of breath SNOMED: 598447448 Status: stable, progressing Assessment/Plan iv abx follow up cultures resp care monitor labs tube feeds monitor for aspiration dvt/stress ulcer prophylaxis stable for dc on iv abx Subjective ROS Limited/Unobtainable: Yes Constitutional: Reports: malaise, weakness HEENT: Reports: no symptoms Cardiovascular: Reports: no symptoms Respiratory: Reports: cough Gastrointestinal/Abdominal: Reports: difficulty swallowing Genitourinary: Reports: no symptoms Neurologic/Psychiatric: Reports: no symptoms Endocrine: Reports: no symptoms Hematologic/Lymphatic: Reports: anemia Allergies: Coded Allergies: No Known Allergies (Unverified , 01/20/18) All Systems: reviewed and negative except above Subjective no events. withdrawn. nonverbal. no distress. on iv abx. cultures with ecoli less congested. on feeds. confused at baseline Objective Last 24 Hour Vital Signs Date Time Temp Pulse Resp B/P (MAP) Pulse Ox O2 Delivery O2 Flow Rate FiO2 02/28/18 04:22 97.7 70 19 101/90 (94) 98 02/28/18 03:21 75 02/28/18 00:00 97.7 76 19 152/68 (96) 98 02/27/18 23:58 Nasal Cannula 2.0 02/27/18 23:26 66 02/27/18 21:00 Nasal Cannula 2.0 02/27/18 20:00 73 02/27/18 20:00 97.6 84 19 151/84 (106) 98 02/27/18 16:00 97.9 65 20 143/88 (106) 98 02/27/18 16:00 83 02/27/18 12:00 72 02/27/18 12:00 97.8 72 18 148/83 (104) 99 02/27/18 09:00 Nasal Cannula 2.0 02/27/18 08:00 97.8 61 20 155/83 (107) 96 Intake and Output 02/27/18 02/28/18 19:00 07:00 Intake Total 567.5 ml Output Total 2000 ml Balance -1432.5 ml Intake Free Water 100 ml IV Total 82.5 ml Tube Feeding 385 ml Output Urine Total 2000 ml # Voids 3 # Bowel Movements 1 2 Laboratory Tests 02/28/18 02:00: Vancomycin Level Trough 10.8 Height (Feet): 5 Height (Inches): 7.00 Weight (Pounds): 150 Objective General Appearance: WD/WN, alert, confused Neck: supple Cardiovascular: regular rhythm Respiratory/Chest: chest wall non-tender, no respiratory distress, rhonchi - bilaterally Abdomen: normal bowel sounds, non tender, soft, no organomegaly Neurologic: alert, disoriented Nicolás Robbins MD Feb 28, 2018 07:50
[2018-02-28 08:00] VITALS: BP 165/94
[2018-02-28] MEDS: Docusate 100mg/10ml Liq GT SCH (08:12)
[2018-02-28] MEDS: Multivitamins W/Minerals 15 ML UDC GT SCH (08:12)
[2018-02-28] MEDS: Vitamin D 1000 IU Tab GT SCH (08:13)
[2018-02-28] MEDS: Aspirin Baby 81mg GT SCH (08:13)
[2018-02-28] MEDS: Heparin 5000 units/ml inj SUBQ SCH (08:14)
[2018-02-28] MEDS: Depakote 125mg Sprinkles GT SCH (08:18)
[2018-02-28] MEDS ORDERED: ZOSYN 3.373.375 GM/1 IVPB (10:41)
--- NOTE | 2018-02-28 10:53 | NUR ---
DISCHARGE PLANNING FAXED CLINICALS TO [facility] T: [phone] F: [phone] AWAIT BED ASSIGNMENT
[2018-02-28 12:00] VITALS: BP 137/84
--- NOTE | 2018-02-28 12:45 | NUR ---
DISCHARGE PLANNED PATIENT WILL BE RETURNING TO [facility] ROOM 14A SKILLED T: [phone] FOR NURSE TO NURSE REPORT [facility] HAS BEEN ARRANGED FOR 1430 TRAIN EXAMINER SPOKE WITH DAUGHTER, CINDY, WHO IS IN AGREEMENT WITH DISCHARGE PLAN
--- NOTE | 2018-02-28 13:19 | NUR ---
NURSE NOTES: called [facility] and report was given to oneida. latest vs taken and reported to ms mohamud. golf teacher removed. iv line newly inserted. 22 g on the left wrist for continous administration of zosyn 3.375 mg for 4 more days Q8H per order by dr jones.. golf teacher removed and endorsed to [place]. mohamud requested to send a set of condom cath and drainage bag. will take note.awaiting for picker tender helper time @ 3250.
--- NOTE | 2018-02-28 14:47 | NUR ---
NURSE NOTES: patient was picked up @ 1446 by ambulance personnel. patient is stable.
--- NOTE | 2018-02-28 16:00 | NUR ---
NURSE NOTES: family member, edward made aware of the discharge.
--- NOTE | 2018-03-01 10:15 | Discharge Summary ---
Discharge Summary Discharge Summary _ DATE OF ADMISSION: 02/24/2018 DATE OF DISCHARGE: 02/28/2018 DISCHARGED BY: Dr. Donahue REASON FOR ADMISSION: 77 years old male with past medical history of COPD, pneumonia, dysphagia, G- tube, BPH, anemia, hepatitis, resident of [facility] facility, presented to emergency department with acute onset of severe shortness of breath and cough . Patient by himself was nonverbal and unable to provide history. Upon evaluation vital signs revealed tachycardia. No fever. Pulse oximetry was stable on 2 L of oxygen via nasal cannula. Laboratory workup revealed leukocytosis WBC 12.2. Lactic acid 2.0 Chemistry revealed sodium 132, BUN 42 creatinine 1.4 . AST 42. Troponin negative,pro BNP 1230. EKG revealed sinus tachycardia , no acute ischemic changes . Albumin 2.1 Urinalysis with pyuria +3 leukocyte esterase and moderate bacteria , +2 protein. Chest x-ray revealed no acute cardiopulmonary pathology. Patient was admitted for further management. CONSULTANTS: Internal medicine Dr. Robbins [facility] COURSE: Patient admitted to telemetry floor. Patient started on the IV hydration and empiric antibiotics. Supplemental oxygen provided as needed to keep oximetry above 92%. Pulmonary toilet via hand-held nebulizing provided. Blood cultures were negative. Urine culture revealed E. coli ESBL. Antibiotic regimen optimized based on sensitivity. Patient need to continue antibiotic at the facility to complete the course. Strict aspiration precautions were maintained. G-tube feeding was resumed. Patient was able to tolerate tube feeding. GI prophylaxis provided. Blood sugar was managed with sliding scale of insulin , remained stable. Renal parameters and electrolytes were closely monitored. Electrolytes were corrected as needed. Nephrotoxics were avoided. Prior to discharge sodium 140. BUN down to 33 from initial 42 and creatinine down to 1 2 from initial 1.4. Acute kidney injury and mild hyponatremia were likely due to dehydration. Supportive care provided. SNF medication resumed. Leukocytosis resolved. Patient remained afebrile. Patient clinically stabilized and was ready for transfer back to [facility] facility for continuation of care. FINAL DIAGNOSES: E. coli ESBL urinary tract infection COPD Possible early pneumonia Dysphagia,, G tube feeding History of aspiration Acute kidney injury and mild hyponatremia due to dehydration -resolved Chronic encephalopathy BPH DISCHARGE MEDICATIONS: See Medication Reconciliation list. DISCHARGE INSTRUCTIONS: Patient was discharged to the [facility] facility. Follow up with medical doctor at the facility. I have been assigned to dictate discharge summary for this account. I was not involved in the patient's management. Mildred Corrigan NP Mar 01, 2018 10:15
== END 2018-02-28 14:46 | DRG 190 ==
LOC: EDBD 15:23 → EMR 17:31 → 2E 17:37 → EDBEDREQ 19:13
DX: J44.0 Chronic obstructive pulmonary disease with (acute) lower respiratory infection (principal); J18.9 Pneumonia, unspecified organism; N39.0 Urinary tract infection, site not specified; G93.40 Encephalopathy, unspecified; Z43.1 Encounter for attention to gastrostomy; N17.9 Acute kidney failure, unspecified; E87.1 Hypo-osmolality and hyponatremia; J44.1 Chronic obstructive pulmonary disease with (acute) exacerbation; J44.9 Chronic obstructive pulmonary disease, unspecified; G30.9 Alzheimer's disease, unspecified; F02.80 Dementia in other diseases classified elsewhere, unspecified severity, without behavioral disturbance, psychotic disturbance, mood disturbance, and anxiety; B96.20 Unspecified Escherichia coli [E. coli] as the cause of diseases classified elsewhere; Z16.12 Extended spectrum beta lactamase (ESBL) resistance; N40.0 Benign prostatic hyperplasia without lower urinary tract symptoms; F32.9 Major depressive disorder, single episode, unspecified; R13.10 Dysphagia, unspecified; E86.0 Dehydration
CPT/HCPCS: 36415; 71045; 80048; 80053; 80202; 81003; 82962; 83605; 83690; 83880; 84484; 85025; 86710; 87040; 87081; 87086; 87181; 93005; 94640; 94664; 99291; J1815

== ENCOUNTER 2018-03-14 11:33 | Inpatient (IN) | payer MEDICARE, OTHER ==
[~2018-03-14] VITALS: Ht 167.6 cm; Wt 45.5 kg
[~2018-03-14 11:33] MED LIST changes: +ACETAMINOP160 MG/54 ORAL; +ATORVASTATIN CA10 MG ORAL; +DOCUSATE S50 MG/5 ML GT; +GLUCERNA 1.5 C237 ML GT; +LANSOPRAZOLE30 MG ORAL; +LEVAQUIN750 MG GT; +ZOSYN 3.373.375 GM/1 IVPB; +[UNRECOGNIZED DRUG - OTHER] GT
[2018-03-14 11:40] VITALS: BP 119/79
[2018-03-14] MEDS ORDERED: Cefepime HCl 2 GM in NS 110 ML IV SCH (11:45)
[2018-03-14 12:23] LABS: HEMATOCRIT 43.8 % (42.0-52.0); HEMOGLOBIN 14.3 G/DL (14.2-18.0); MEAN CORPUSCULAR VOLUME 96 FL (80-99); PLATELET COUNT 302 K/UL (150-450); RED BLOOD COUNT 4.55 M/UL (4.70-6.10); RED CELL DISTRIBUTION WIDTH 14.6 % (11.6-14.8)
[2018-03-14 12:27] LABS: WHITE BLOOD COUNT 29.7 K/UL (4.8-10.8)
[2018-03-14 12:35] LABS: ANION GAP 11 mmol/L (5-15); BLOOD UREA NITROGEN 46 mg/dL (7-18); CALCIUM 10.1 MG/DL (8.5-10.1); CARBON DIOXIDE 29 MMOL/L (21-32); CHLORIDE 110 MMOL/L (98-107); CREATININE 1.4 MG/DL (0.55-1.30); POTASSIUM 4.2 MMOL/L (3.5-5.1); SODIUM 150 MMOL/L (136-145)
[2018-03-14 12:48] LABS: ALANINE AMINOTRANSFERASE 19 U/L (12-78); ALBUMIN 3.1 G/DL (3.4-5.0); ALBUMIN/GLOBULIN RATIO 0.7 (1.0-2.7); ALKALINE PHOSPHATASE 83 U/L (46-116); ASPARTATE AMINO TRANSFERASE 10 U/L (15-37); BILIRUBIN,TOTAL 0.5 MG/DL (0.2-1.0); CKMB < 0.5 NG/ML (0.0-3.6); CREATINE KINASE 24 U/L (26-308)
[2018-03-14 13:48] LABS: APPEARANCE,URINE SLIGHTLY CLOUDY; BILIRUBIN, URINE NEGATIVE (NEGATIVE); GLUCOSE, URINE (UA) NEGATIVE (NEGATIVE); KETONES,URINE NEGATIVE (NEGATIVE); LEUKOCYTE ESTERASE ,URINE 2+ (NEGATIVE); NITRITE,URINE NEGATIVE (NEGATIVE); PH,URINE 6.5 (4.5-8.0); PROTEIN,URINE 2+ (NEGATIVE); UROBILINOGEN,URINE NORMAL MG/DL (0.0-1.0)
[2018-03-14 13:57] LABS: COLOR,URINE YELLOW
--- NOTE | 2018-03-14 14:07 | Diagnostic Imaging Report ---
Indication: Cough Technique: One view of the chest Comparison: 02/24/2018 Findings: Interim development of infiltrate in the right mid and lower lung. There is some reticular opacity at the left lung base, which could represent some atelectasis or patchy infiltrate as well. The pleural spaces are clear. The heart size is normal. The aorta is tortuous and ectatic. Impression: Right mid and lower lung opacities, suspect pneumonia Questionable minimal infiltrate at the left lung base as well
[2018-03-14] MEDS ORDERED: LORAZEPAM0.5 MG GT (15:40)
[2018-03-14] MEDS ORDERED: ALBUTEROL2.5 MG/3 M INH (15:40)
[2018-03-14] MEDS ORDERED: REMEDY PHYTOPL113 GM TP (15:42)
[2018-03-14 16:00] VITALS: BP 136/80
--- NOTE | 2018-03-14 16:04 | Emergency Room Report ---
History of Present Illness General Chief Complaint: Fever Source: Patient Present Illness HPI Patient presents from a nursing home facility for fever. The patient has a history of pneumonia, diabetes and dementia. He was recently treated for pneumonia. The patient himself is unable to give a history. This is per report from EMS from the nursing home facility. Allergies: Coded Allergies: No Known Allergies (Unverified , 03/14/18) Patient History Past Medical History: see triage record, DM, HTN, dementia Social History: Denies: smoking, alcohol use, drug use Reviewed Nursing Documentation: PMH: Agreed; PSxH: Agreed Nursing Documentation-PMH Hx Cardiac Problems: Yes - HLD, BPH, Anemia Hx Hypertension: Yes Hx COPD: Yes - COPD, PNA Hx Diabetes: Yes - DMII Hx Cancer: No Hx Gastrointestinal Problems: No - gastrostomy Hx Dialysis: Yes Hx Neurological Problems: Yes - muscle weakness, dysphagia, Alzheimer, hypertensive encephalopathy Hx Cerebrovascular Accident: Yes Hx Alzheimer's Disease: Yes Hx Speech Problem: Yes Review of Systems All Other Systems: negative except mentioned in HPI Physical Exam Vital Signs Date Time Temp Pulse Resp B/P (MAP) Pulse Ox O2 Delivery O2 Flow Rate FiO2 03/14/18 11:35 97.9 120 30 119/78 92 2.0 03/14/18 11:40 Nasal Cannula Sp02 EP Interpretation: reviewed, normal General Appearance: no apparent distress, alert, GCS 15, non-toxic Head: normocephalic, atraumatic Eyes: bilateral eye normal inspection, bilateral eye PERRL ENT: normal pharynx, no angioedema Neck: full range of motion, supple/symm/no masses Respiratory: chest non-tender, lungs clear, normal breath sounds, no respiratory distress, no retraction, no accessory muscle use, speaking full sentences Cardiovascular #1: no edema, tachycardia Gastrointestinal: normal bowel sounds, non tender, soft, non-distended, no guarding, no rebound Rectal: deferred Musculoskeletal: normal range of motion, non-tender Neurologic: alert, responsive, sensory intact, speech normal, grossly normal Psychiatric: mood/affect normal, no suicidal/homicidal ideation Skin: normal color, no rash, warm/dry, well hydrated Medical Decision Making Diagnostic Impression: Primary Impression: Sepsis Additional Impression: Pneumonia ER Course This patient is found to have pneumonia. He meets criteria for sepsis with tachycardia, and elevated white blood cell count and a source for infection. His given aggressive IV fluid resuscitation and IV antibiotics. He is admitted for further evaluation and treatment. This patient is critically ill. This patient required complex medical decision- making, aggressive intervention, extensive laboratory workup and monitoring. Critical care time: 40 minutes. Laboratory Tests Test 03/14/18 11:50 03/14/18 13:19 White Blood Count 29.7 K/UL (4.8-10.8) *H Red Blood Count 4.55 M/UL (4.70-6.10) L Hemoglobin 14.3 G/DL (14.2-18.0) Hematocrit 43.8 % (42.0-52.0) Mean Corpuscular Volume 96 FL (80-99) Mean Corpuscular Hemoglobin 31.4 PG (27.0-31.0) H Mean Corpuscular Hemoglobin Concent 32.6 G/DL (32.0-36.0) Red Cell Distribution Width 14.6 % (11.6-14.8) Platelet Count 302 K/UL (150-450) Mean Platelet Volume 8.1 FL (6.5-10.1) Neutrophils (%) (Auto) % (45.0-75.0) Lymphocytes (%) (Auto) % (20.0-45.0) Monocytes (%) (Auto) % (1.0-10.0) Eosinophils (%) (Auto) % (0.0-3.0) Basophils (%) (Auto) % (0.0-2.0) Differential Total Cells Counted 100 Neutrophils % (Manual) 88 % (45-75) H Lymphocytes % (Manual) 7 % (20-45) L Monocytes % (Manual) 3 % (1-10) Eosinophils % (Manual) 0 % (0-3) Basophils % (Manual) 0 % (0-2) Band Neutrophils 2 % (0-8) Platelet Estimate Adequate Platelet Morphology Normal Red Blood Cell Morphology Normal Sodium Level 150 MMOL/L (136-145) H Potassium Level 4.2 MMOL/L (3.5-5.1) Chloride Level 110 MMOL/L (98-107) H Carbon Dioxide Level 29 MMOL/L (21-32) Anion Gap 11 mmol/L (5-15) Blood Urea Nitrogen 46 mg/dL (7-18) H Creatinine 1.4 MG/DL (0.55-1.30) H Estimate Glomerular Filtration Rate mL/min (>60) Glucose Level 121 MG/DL (74-106) H Calcium Level 10.1 MG/DL (8.5-10.1) Total Bilirubin 0.5 MG/DL (0.2-1.0) Aspartate Amino Transferase (AST) 10 U/L (15-37) L Alanine Aminotransferase (ALT) 19 U/L (12-78) Alkaline Phosphatase 83 U/L (46-116) Total Creatine Kinase 24 U/L (26-308) L Creatine Kinase MB < 0.5 NG/ML (0.0-3.6) Creatine Kinase MB Relative Index 2.0 Troponin I 0.023 ng/mL (0.000-0.056) Total Protein 7.6 G/DL (6.4-8.2) Albumin 3.1 G/DL (3.4-5.0) L Globulin 4.5 g/dL Albumin/Globulin Ratio 0.7 (1.0-2.7) L Urine Color Yellow Urine Appearance Slightly cloudy Urine pH 6.5 (4.5-8.0) Urine Specific [place] 1.015 (1.005-1.035) Urine Protein 2+ (NEGATIVE) H Urine Glucose (UA) Negative (NEGATIVE) Urine Ketones Negative (NEGATIVE) Urine Blood 5+ (NEGATIVE) H Urine Nitrite Negative (NEGATIVE) Urine Bilirubin Negative (NEGATIVE) Urine Urobilinogen Normal MG/DL (0.0-1.0) Urine Leukocyte Esterase 2+ (NEGATIVE) H Urine RBC Tntc /HPF (0 - 0) H Urine WBC 2-4 /HPF (0 - 0) Urine Squamous Epithelial Cells Occasional /LPF Urine Bacteria Occasional /HPF (NONE) Lactic Acid Level 1.80 mmol/L (0.4-2.0) Microbiology Date/Time Source Procedure Growth Status 03/14/18 12:10 Nasal Nares Influenza Types A,B Antigen (EUFEMIA) - Final Complete EKG Diagnostic Results Rate: tachycardiac Rhythm: other - S.tachycardia ST Segments: other - NSST Rhythm Strip Diag. Results EP Interpretation: yes Rate: 110's Rhythm: NSR, no PVC's, no ectopy Chest X-Ray Diagnostic Results Chest X-Ray Diagnostic Results : Chest X-Ray Ordered: Yes # of Views/Limited/Complete: 1 View Indication: Other Interpretation: no pneumothorax, other - Impression: Right mid and lower lung opacities, suspect pneumonia Impression: Other - see above Electronically Signed by: Eva Palacios DO Last Vital Signs Date Time Temp Pulse Resp B/P (MAP) Pulse Ox O2 Delivery O2 Flow Rate FiO2 03/14/18 11:40 126 25 Nasal Cannula 2.0 03/14/18 11:40 100.7 119/79 92 Status: improved Disposition: ADMITTED INPATIENT Condition: Serious Referrals: NON PHYSICIAN (PCP) Eva Palacios DO Mar 14, 2018 16:04
[2018-03-14 16:30] VITALS: BP 131/78
[2018-03-14] MEDS ORDERED: Fleet's Enema 133ml RECTAL PRN (17:30)
[2018-03-14] MEDS ORDERED: Albuterol ud Inhalation HHN PRN (17:30)
[2018-03-14 20:00] VITALS: BP 138/78
[2018-03-14] MEDS: LORazepam 0.5mg tab GT SCH ×2 (20:00→23:53)
[2018-03-14] MEDS: Vancomycin 500mg/D5W 110ml IVPB SCH ×2 (20:00)
[2018-03-14] MEDS: Depakote 125mg Sprinkles GT SCH (20:44)
[2018-03-14] MEDS: TraZODone 50mg tab GT SCH (20:44)
[2018-03-14] MEDS: Heparin 5000 units/ml inj SUBQ SCH (20:45)
[2018-03-14] MEDS ORDERED: Zosyn 2.25gm inj IV SCH (21:00)
[2018-03-14] MEDS ORDERED: Heparin 5000 units/ml inj SUBQ SCH (21:00)
[2018-03-14] MEDS: NovoLOG Insulin Flexpen SUBQ SCH (21:00)
[2018-03-14] MEDS ORDERED: Tamsulosin 0.4mg cap ORAL SCH (21:00)
[2018-03-14] MEDS: Zoysn 3.37gm in NS 100ML IVPB SCH (22:05)
[2018-03-15] VITALS: BP 142/79
[2018-03-15] MEDS: Acetaminophen 650mg/20.3ml GT PRN ×2 (00:46→10:09)
[2018-03-15 04:00] VITALS: BP 144/87
[2018-03-15] MEDS: LORazepam 0.5mg tab GT SCH ×3 (05:54→17:11)
[2018-03-15] MEDS: Zoysn 3.37gm in NS 100ML IVPB SCH ×3 (05:54→22:46)
[2018-03-15] MEDS: NovoLOG Insulin Flexpen SUBQ SCH ×4 (06:05→20:49)
[2018-03-15 06:39] LABS: HEMATOCRIT 39.7 % (42.0-52.0); HEMOGLOBIN 12.6 G/DL (14.2-18.0); MEAN CORPUSCULAR VOLUME 99 FL (80-99); PLATELET COUNT 235 K/UL (150-450); RED BLOOD COUNT 4.02 M/UL (4.70-6.10); RED CELL DISTRIBUTION WIDTH 14.7 % (11.6-14.8)
[2018-03-15 07:06] LABS: WHITE BLOOD COUNT 23.6 K/UL (4.8-10.8)
[2018-03-15 08:00] VITALS: BP 157/86
[2018-03-15 08:02] LABS: ANION GAP 13 mmol/L (5-15); BLOOD UREA NITROGEN 38 mg/dL (7-18); CALCIUM 9.8 MG/DL (8.5-10.1); CARBON DIOXIDE 26 MMOL/L (21-32); CHLORIDE 116 MMOL/L (98-107); CREATININE 1.4 MG/DL (0.55-1.30); POTASSIUM 3.9 MMOL/L (3.5-5.1); SODIUM 155 MMOL/L (136-145)
--- NOTE | 2018-03-15 08:19 | Consultation ---
Consult Note Consult Note 77-year-old [facility]. The patient with known history of pneumonia diabetes patient with recent discharge after a bout of pneumonia and urinary tract infection patient now evaluated in the emergency room and noted to have again pneumonia and possible sepsis the patient also with significant leukocytosis white cell count of 29 patient unable to give a history and patient essentially bedbound G-tube dependent. The patient is in no significant distress at this time. He was started on IV antibiotics and admitted. The patient skilled nursing chart was reviewed in detail the patient's prior chart was reviewed. The care was discussed with the ER physician as well. Next Past medical history Diabetes hypertension dementia pneumonia aspiration G-tube possible COPD benign prostatic hyperplasia hypertension and heart disease possible CVA Medication reviewed and reconciled allergies as well reviewed and reconciled Review of systems unobtainable due to patient's present state Physical examination patient is a well-appearing male overall no significant distress Vital signs temperature 100 blood pressure 138/78 heart rate 104 respiratory 20 oxygen saturation 95% on 2 L HCT negative except for mucous membranes slightly dry gagging at present Lungs with scattered rhonchi crackles at the right base Cardiac exam normal S1-S2 regular rate and rhythm without murmurs rubs gallops Abdomen soft nontender G-tube in place Extremities no cyanosis clubbing or edema decreased range of motion Neurologically grossly nonfocal but nonverbal Labs Test 03/14/18 11:50 03/14/18 13:19 03/15/18 05:55 White Blood Count 29.7 K/UL (4.8-10.8) 23.6 K/UL (4.8-10.8) Red Blood Count 4.55 M/UL (4.70-6.10) 4.02 M/UL (4.70-6.10) Hemoglobin 14.3 G/DL (14.2-18.0) 12.6 G/DL (14.2-18.0) Hematocrit 43.8 % (42.0-52.0) 39.7 % (42.0-52.0) Mean Corpuscular Volume 96 FL (80-99) 99 FL (80-99) Mean Corpuscular Hemoglobin 31.4 PG (27.0-31.0) 31.4 PG (27.0-31.0) Mean Corpuscular Hemoglobin Concent 32.6 G/DL (32.0-36.0) 31.8 G/DL (32.0-36.0) Red Cell Distribution Width 14.6 % (11.6-14.8) 14.7 % (11.6-14.8) Platelet Count 302 K/UL (150-450) 235 K/UL (150-450) Mean Platelet Volume 8.1 FL (6.5-10.1) 9.0 FL (6.5-10.1) Neutrophils (%) (Auto) % (45.0-75.0) % (45.0-75.0) Lymphocytes (%) (Auto) % (20.0-45.0) % (20.0-45.0) Monocytes (%) (Auto) % (1.0-10.0) % (1.0-10.0) Eosinophils (%) (Auto) % (0.0-3.0) % (0.0-3.0) Basophils (%) (Auto) % (0.0-2.0) % (0.0-2.0) Differential Total Cells Counted 100 Neutrophils % (Manual) 88 % (45-75) Lymphocytes % (Manual) 7 % (20-45) Monocytes % (Manual) 3 % (1-10) Eosinophils % (Manual) 0 % (0-3) Basophils % (Manual) 0 % (0-2) Band Neutrophils 2 % (0-8) Platelet Estimate Adequate Platelet Morphology Normal Red Blood Cell Morphology Normal Sodium Level 150 MMOL/L (136-145) 155 MMOL/L (136-145) Potassium Level 4.2 MMOL/L (3.5-5.1) 3.9 MMOL/L (3.5-5.1) Chloride Level 110 MMOL/L (98-107) 116 MMOL/L (98-107) Carbon Dioxide Level 29 MMOL/L (21-32) 26 MMOL/L (21-32) Anion Gap 11 mmol/L (5-15) 13 mmol/L (5-15) Blood Urea Nitrogen 46 mg/dL (7-18) 38 mg/dL (7-18) Creatinine 1.4 MG/DL (0.55-1.30) 1.4 MG/DL (0.55-1.30) Estimat Glomerular Filtration Rate mL/min (>60) mL/min (>60) Glucose Level 121 MG/DL (74-106) 150 MG/DL (74-106) Calcium Level 10.1 MG/DL (8.5-10.1) 9.8 MG/DL (8.5-10.1) Total Bilirubin 0.5 MG/DL (0.2-1.0) Aspartate Amino Transf (AST/SGOT) 10 U/L (15-37) Alanine Aminotransferase (ALT/SGPT) 19 U/L (12-78) Alkaline Phosphatase 83 U/L (46-116) Total Creatine Kinase 24 U/L (26-308) Creatine Kinase MB < 0.5 NG/ML (0.0-3.6) Creatine Kinase MB Relative Index 2.0 Troponin I 0.023 ng/mL (0.000-0.056) Total Protein 7.6 G/DL (6.4-8.2) Albumin 3.1 G/DL (3.4-5.0) Globulin 4.5 g/dL Albumin/Globulin Ratio 0.7 (1.0-2.7) Urine Color Yellow Urine Appearance Slightly cloudy Urine pH 6.5 (4.5-8.0) Urine Specific [place] 1.015 (1.005-1.035) Urine Protein 2+ (NEGATIVE) Urine Glucose (UA) Negative (NEGATIVE) Urine Ketones Negative (NEGATIVE) Urine Blood 5+ (NEGATIVE) Urine Nitrite Negative (NEGATIVE) Urine Bilirubin Negative (NEGATIVE) Urine Urobilinogen Normal MG/DL (0.0-1.0) Urine Leukocyte Esterase 2+ (NEGATIVE) Urine RBC Tntc /HPF (0 - 0) Urine WBC 2-4 /HPF (0 - 0) Urine Squamous Epithelial Cells Occasional /LPF Urine Bacteria Occasional /HPF (NONE) Lactic Acid Level 1.80 mmol/L (0.4-2.0) Impression sepsis Leukocytosis Anemia Pneumonia Respiratory insufficiency Hyponatremia Acute renal failure Dementia Mild protein calorie malnutrition G-tube Benign prostatic hyperplasia Plan IV hydration IV antibiotics ID evaluation Respiratory care Resume medication Monitor electrolytes Monitor x-ray Aspiration precautions Monitor imaging Discharge back to skilled facility once stable Beto Donahue MD Mar 15, 2018 08:19
[2018-03-15] MEDS: Aspirin Baby 81mg GT SCH (10:04)
[2018-03-15] MEDS: Docusate 100mg/10ml Liq GT SCH (10:04)
[2018-03-15] MEDS: Vitamin D 1000 IU Tab GT SCH (10:04)
[2018-03-15] MEDS: Milk of Magnesia 30ml Ud GT SCH (10:04)
[2018-03-15] MEDS: Depakote 125mg Sprinkles GT SCH ×2 (10:05→20:46)
[2018-03-15] MEDS: Heparin 5000 units/ml inj SUBQ SCH ×2 (10:06→20:49)
[2018-03-15] MEDS: Albuterol/Ipratropium 3ml neb HHN SCH ×4 (11:00→23:31)
[2018-03-15 12:00] VITALS: BP 164/57
--- NOTE | 2018-03-15 12:47 | Diagnostic Imaging Report ---
Indication: Cough Technique: One view of the chest Comparison: 03/14/2018 Findings: Again demonstrated is infiltrate at the right lung base, probably unchanged. Less extensive infiltrate in the left lung base is also unchanged. Normal heart size. Tortuous calcified aorta. Costophrenic angles remain sharp Impression: Unchanged bilateral right greater than left infiltrates, likely pneumonia, over one
[2018-03-15] MEDS: D5W w/KCl 20mEq 1,000 ML IV SCH ×2 (12:48→22:53)
--- NOTE | 2018-03-15 15:00 | Consultation ---
DATE OF CONSULTATION: 03/15/2018 NEPHROLOGY CONSULTATION CONSULTING PHYSICIAN: Malik Adan M.D. ATTENDING PHYSICIAN: Beto Donahue M.D. REASON FOR CONSULTATION: Elevated BUN and creatinine. HISTORY OF PRESENT ILLNESS: This is a 77-year-old male from a [facility] who came in with fever. I am asked to see the patient for elevated BUN and creatinine. PAST MEDICAL HISTORY: 1. Organic brain syndrome. 2. Type 2 diabetes mellitus. 3. Hypertensive cardiovascular disease. 4. Status post G-tube. 5. COPD. MEDICATIONS: 1. IV fluids half-normal saline. 2. Cefepime IV. 3. Zosyn IV. 4. Vancomycin. 5. Tylenol p.r.n. 6. Albuterol inhaler. 7. Baby aspirin. 8. Atorvastatin. 9. Clonidine. 10. Proscar. 11. Fleet enema p.r.n. 12. Subcutaneous heparin. 13. Insulin sliding scale. 14. Prevacid. 15. Levaquin. 16. Lorazepam. 17. Milk of magnesia. 18. Trazodone. ALLERGIES: No known drug allergies. SOCIAL HISTORY: Unable to obtain due to mental status. FAMILY HISTORY: Unable to obtain due to mental status. REVIEW OF SYSTEMS: Unable to obtain due to mental status. PHYSICAL EXAMINATION: GENERAL: This is an elderly male, who is in no acute distress. VITAL SIGNS: Blood pressure 144/87, mean arterial pressure 106, pulse 95, respirations 19, temperature 97.8 axillary. HEENT: Head is normocephalic and atraumatic. Pupils are equal, round, and reactive to light and accommodation consensually. NECK: Supple. Trachea midline. There was no lymphadenopathy or thyromegaly. LUNGS: Bilateral wheezes. HEART: Regular rate and rhythm without rubs, murmurs, or gallops. ABDOMEN: Soft and nontender. Bowel sounds were active. EXTREMITIES: No clubbing, cyanosis, or edema. NEUROLOGICAL: He is confused. There were no gross focal findings. LABORATORY AND ANCILLARY DATA: Serum sodium 155, whereas on admission 150, BUN 38, creatinine 1.4. Urinalysis, urine specific gravity 1.015. Urine protein 2+. Urine sediment too numerous to count RBCs. Imaging report, chest x-ray, right mid and lower lung opacity, suspect pneumonia. ASSESSMENT: 1. Volume depletion with hypernatremia. 2. Right middle and lower lobe pneumonia. PLAN: 1. Recommend to change IV fluids to hypotonic D5W and increase insulin therapy. 2. Continue all other modalities. Thank you, Dr. Donahue, for letting me to participate in the care of this patient. Malik Adan M.D. DR: Pineda JOB#: [id number] CC:
[2018-03-15 16:00] VITALS: BP 159/62
--- NOTE | 2018-03-15 17:00 | Consultation ---
DATE OF CONSULTATION: 03/15/2018 INFECTIOUS DISEASES CONSULTATION CONSULTING PHYSICIAN: Nishi Camacho M.D. REFERRING PHYSICIAN: Beto Donahue M.D. REASON FOR CONSULTATION: Pneumonia and leukocytosis. HISTORY OF PRESENTING ILLNESS: This is a 77-year-old gentleman with history of hypertension, diabetes, dementia, pneumonia, status post G-tube placement, who comes in after a recent bout of pneumonia and urinary tract infection. Now, he has recurrent pneumonia with leukocytosis and an Infectious Diseases consultation has been obtained for antibiotics. PAST MEDICAL HISTORY: 1. History of diabetes. 2. Hypertension. 3. Dementia. 4. Pneumonia. 5. Status post G-tube placement. 6. COPD. 7. Benign prostatic hyperplasia. 8. Heart disease. 9. Possible CVA. SOCIAL HISTORY: Unknown. FAMILY HISTORY: Unknown. REVIEW OF SYSTEMS: Unable to obtain currently. MEDICATIONS: As an inpatient, the patient is on Levaquin, albuterol, ipratropium, clonidine, aspirin, vitamin D, docusate, Prevacid, milk of magnesia, Zosyn, atorvastatin, Depakote, subcutaneous heparin, trazodone, insulin, IV vancomycin, Ativan, Seroquel, Tylenol, and Proventil. ALLERGIES: No known drug allergies. PHYSICAL EXAMINATION: VITAL SIGNS: Temperature of 97.8, T-max of 100.7, pulse of 94, respiratory rate of 19, blood pressure 144/87, O2 saturation of 95%. HEENT: Pupils equally reactive to light and accommodation. Mouth appears clean without thrush. NECK: Supple. No adenopathy. No JVD. CARDIOVASCULAR: Regular rate and rhythm. No murmurs. LUNGS: Clear to auscultation bilaterally. No crackles. No wheezes. ABDOMEN: Soft and nontender. G-tube site appears clean. EXTREMITIES: No cyanosis, no clubbing, no edema. LABORATORY DATA: White count of 29 yesterday, white count of 23 today, hemoglobin 12.6, hematocrit , MCV 99, platelet count of 235,000 with neutrophils of 74%. Sodium 155, potassium 3.9, chloride 116, bicarbonate 26, BUN 38, creatinine 1.4, glucose 150, calcium 9.8, total bilirubin 0.5, AST 10, ALT 19, alkaline phosphatase 83. CK of 24, CK-MB less than 0.5. Total protein 7.6. Albumin 3.1. UA showing 2-4 white cells. Nasal swab was negative for influenza A and B. Chest x-ray showing right mid and lower lung opacity, suspect pneumonia, possible infiltrates of the left lung base as well. ASSESSMENT: This is a 77-year-old gentleman with history of diabetes, hypertension, and dementia, who comes in with: 1. Likely aspiration pneumonia. 2. Leukocytosis is improving. 3. COPD. 4. Heart disease. PLAN: 1. Continue vancomycin and Zosyn. 2. Discontinue Levaquin. 3. We will order sputum for Gram stain and culture. 4. We will order for serum Legionella antibody and Mycoplasma serology. 5. We will follow up cultures and adjust antibiotics accordingly. I would like to thank Dr. Donahue for this consultation. Nishi Camacho M.D. DR: DARIAN JOB#: [id number] CC: Beto Donahue M.D.; Fax#: [phone]
[2018-03-15 20:00] VITALS: BP 153/82
[2018-03-15] MEDS: TraZODone 50mg tab GT SCH (20:31)
[2018-03-15] MEDS: Vancomycin 500mg/D5W 110ml IVPB SCH ×2 (21:21)
[2018-03-16] VITALS: BP 151/76
[2018-03-16] MEDS: Acetaminophen 650mg/20.3ml GT PRN ×2 (00:01→08:48)
[2018-03-16] MEDS: Albuterol/Ipratropium 3ml neb HHN SCH ×3 (03:48→11:13)
[2018-03-16 04:00] VITALS: BP 149/78
[2018-03-16] MEDS: LORazepam 0.5mg tab GT SCH ×2 (05:12)
[2018-03-16] MEDS: Zoysn 3.37gm in NS 100ML IVPB SCH (06:13)
[2018-03-16] MEDS: NovoLOG Insulin Flexpen SUBQ SCH (06:17)
[2018-03-16 07:29] LABS: ANION GAP 12 mmol/L (5-15); BLOOD UREA NITROGEN 28 mg/dL (7-18); CALCIUM 9.2 MG/DL (8.5-10.1); CARBON DIOXIDE 23 MMOL/L (21-32); CHLORIDE 116 MMOL/L (98-107); CREATININE 1.1 MG/DL (0.55-1.30); POTASSIUM 4.8 MMOL/L (3.5-5.1); SODIUM 151 MMOL/L (136-145)
[2018-03-16 07:32] LABS: HEMATOCRIT 34.5 % (42.0-52.0); HEMOGLOBIN 11.3 G/DL (14.2-18.0); MEAN CORPUSCULAR VOLUME 97 FL (80-99); PLATELET COUNT 163 K/UL (150-450); RED BLOOD COUNT 3.55 M/UL (4.70-6.10); RED CELL DISTRIBUTION WIDTH 14.5 % (11.6-14.8); WHITE BLOOD COUNT 19.6 K/UL (4.8-10.8)
[2018-03-16 08:00] VITALS: BP 147/70
[2018-03-16] MEDS: Depakote 125mg Sprinkles GT SCH (08:47)
[2018-03-16] MEDS: Aspirin Baby 81mg GT SCH (08:47)
[2018-03-16] MEDS: Vitamin D 1000 IU Tab GT SCH (08:48)
[2018-03-16] MEDS: Docusate 100mg/10ml Liq GT SCH (08:48)
[2018-03-16] MEDS: Milk of Magnesia 30ml Ud GT SCH (08:48)
[2018-03-16] MEDS: Heparin 5000 units/ml inj SUBQ SCH (08:51)
--- NOTE | 2018-03-16 09:15 | General Progress Note ---
Assessment/Plan Problem List: (1) SOB (shortness of breath) ICD Codes: R06.02 - Shortness of breath SNOMED: 344017557 (2) Sepsis ICD Codes: A41.9 - Sepsis, unspecified organism SNOMED: 58054645 (3) Pneumonia ICD Codes: J18.9 - Pneumonia, unspecified organism SNOMED: 669427156 Status: stable Assessment/Plan iv abx follow up cultures monitor cxr resp rx gt feeds monitor residuals Subjective ROS Limited/Unobtainable: Yes Constitutional: Reports: malaise, weakness HEENT: Reports: no symptoms Cardiovascular: Reports: no symptoms Respiratory: Reports: cough, shortness of breath, sputum Gastrointestinal/Abdominal: Reports: no symptoms, difficulty swallowing Genitourinary: Reports: no symptoms Neurologic/Psychiatric: Reports: no symptoms Endocrine: Reports: no symptoms Hematologic/Lymphatic: Reports: no symptoms Allergies: Coded Allergies: No Known Allergies (Unverified , 03/14/18) All Systems: reviewed and negative except above Subjective better today. no fevers. less congested. wbc trending down. on abx Objective Last 24 Hour Vital Signs Date Time Temp Pulse Resp B/P (MAP) Pulse Ox O2 Delivery O2 Flow Rate FiO2 03/16/18 08:00 97.0 101 20 147/70 (95) 98 03/16/18 07:42 101 24 98 Nasal Cannula 2.0 28 03/16/18 07:31 83 24 92 Nasal Cannula 2.0 28 03/16/18 07:31 Nasal Cannula 2.0 28 03/16/18 07:31 92 Nasal Cannula 2.0 28 03/16/18 04:00 109 03/16/18 04:00 97.1 106 18 149/78 (101) 95 03/16/18 03:51 108 20 97 Nasal Cannula 2.0 28 03/16/18 03:40 105 20 94 Nasal Cannula 2.0 28 03/16/18 01:37 97.7 03/16/18 00:00 101.1 112 18 151/76 (101) 94 03/16/18 00:00 103 03/15/18 23:32 115 20 96 Nasal Cannula 2.0 28 03/15/18 23:22 112 20 93 Nasal Cannula 2.0 28 03/15/18 21:00 Nasal Cannula 2.0 03/15/18 20:00 99.2 127 22 153/82 (105) 94 03/15/18 20:00 117 03/15/18 19:35 117 20 Nasal Cannula 2.0 03/15/18 19:34 Nasal Cannula 2.0 03/15/18 19:33 92 Nasal Cannula 2.0 03/15/18 19:31 119 20 95 Nasal Cannula 2.0 03/15/18 19:20 114 20 92 Nasal Cannula 2.0 03/15/18 16:57 94 22 96 Nasal Cannula 2.0 03/15/18 16:53 92 22 93 Nasal Cannula 2.0 03/15/18 16:52 Nasal Cannula 2.0 03/15/18 16:52 Nasal Cannula 2.0 28 03/15/18 16:00 97.8 89 19 159/62 (94) 96 03/15/18 16:00 104 03/15/18 12:00 97.2 86 19 164/57 (92) 97 03/15/18 12:00 96 Intake and Output 03/15/18 03/16/18 19:00 07:00 Intake Total 735 ml 1826.9 ml Balance 735 ml 1826.9 ml Free Water 140 ml IV Total 75 ml 1081.9 ml Tube Feeding 660 ml 605 ml # Voids 2 2 # Bowel Movements 2 2 Laboratory Tests 03/16/18 06:23: White Blood Count 19.6H, Red Blood Count 3.55L, Hemoglobin 11.3L, Hematocrit 34.5L, Mean Corpuscular Volume 97, Mean Corpuscular Hemoglobin 31.8H, Mean Corpuscular Hemoglobin Concent 32.7, Red Cell Distribution Width 14.5, Platelet Count 163, Mean Platelet Volume 9.1, Neutrophils (%) (Auto) , Lymphocytes (%) ( Auto) , Monocytes (%) (Auto) , Eosinophils (%) (Auto) , Basophils (%) (Auto) , Neutrophils % (Manual) [Pending], Lymphocytes % (Manual) [Pending], Platelet Estimate [Pending], Platelet Morphology [Pending], Sodium Level 151H, Potassium Level 4.8, Chloride Level 116H, Carbon Dioxide Level 23, Anion Gap 12, Blood Urea Nitrogen 28H, Creatinine 1.1, Estimat Glomerular Filtration Rate , Glucose Level 129H, Calcium Level 9.2, Magnesium Level 2.7H Height (Feet): 5 Height (Inches): 6.00 Weight (Pounds): 100 General Appearance: WD/WN, confused Neck: supple Cardiovascular: regular rhythm Respiratory/Chest: crackles/rales, rhonchi - bilaterally Abdomen: normal bowel sounds, non tender, soft, no organomegaly Edema: no edema noted Arm (L), no edema noted Arm (R), no edema noted Leg (L), no edema noted Leg (R), no edema noted Pedal (L), no edema noted Pedal (R), no edema noted Generalized Neurologic: disoriented Nicolás Robbins MD Mar 16, 2018 09:15
--- NOTE | 2018-03-16 10:33 | Nephrology Progress Note ---
Assessment/Plan Plan Pneumonia -IV Abx Hypernatremia + RADHA - on Free H2O - improving Na + renal parameters. Subjective Subjective Confused Objective Objective Last 24 Hour Vital Signs Date Time Temp Pulse Resp B/P (MAP) Pulse Ox O2 Delivery O2 Flow Rate FiO2 03/16/18 08:00 97.0 101 20 147/70 (95) 98 03/16/18 07:42 101 24 98 Nasal Cannula 2.0 28 03/16/18 07:31 83 24 92 Nasal Cannula 2.0 28 03/16/18 07:31 Nasal Cannula 2.0 28 03/16/18 07:31 92 Nasal Cannula 2.0 28 03/16/18 04:00 109 03/16/18 04:00 97.1 106 18 149/78 (101) 95 03/16/18 03:51 108 20 97 Nasal Cannula 2.0 28 03/16/18 03:40 105 20 94 Nasal Cannula 2.0 28 03/16/18 01:37 97.7 03/16/18 00:00 101.1 112 18 151/76 (101) 94 03/16/18 00:00 103 03/15/18 23:32 115 20 96 Nasal Cannula 2.0 28 03/15/18 23:22 112 20 93 Nasal Cannula 2.0 28 03/15/18 21:00 Nasal Cannula 2.0 03/15/18 20:00 99.2 127 22 153/82 (105) 94 03/15/18 20:00 117 03/15/18 19:35 117 20 Nasal Cannula 2.0 03/15/18 19:34 Nasal Cannula 2.0 03/15/18 19:33 92 Nasal Cannula 2.0 03/15/18 19:31 119 20 95 Nasal Cannula 2.0 03/15/18 19:20 114 20 92 Nasal Cannula 2.0 03/15/18 16:57 94 22 96 Nasal Cannula 2.0 03/15/18 16:53 92 22 93 Nasal Cannula 2.0 03/15/18 16:52 Nasal Cannula 2.0 03/15/18 16:52 Nasal Cannula 2.0 28 03/15/18 16:00 97.8 89 19 159/62 (94) 96 03/15/18 16:00 104 03/15/18 12:00 97.2 86 19 164/57 (92) 97 03/15/18 12:00 96 Intake and Output 03/15/18 03/16/18 19:00 07:00 Intake Total 735 ml 1826.9 ml Balance 735 ml 1826.9 ml Free Water 140 ml IV Total 75 ml 1081.9 ml Tube Feeding 660 ml 605 ml # Voids 2 2 # Bowel Movements 2 2 Laboratory Tests 03/16/18 06:23: White Blood Count 19.6H, Red Blood Count 3.55L, Hemoglobin 11.3L, Hematocrit 34.5L, Mean Corpuscular Volume 97, Mean Corpuscular Hemoglobin 31.8H, Mean Corpuscular Hemoglobin Concent 32.7, Red Cell Distribution Width 14.5, Platelet Count 163, Mean Platelet Volume 9.1, Neutrophils (%) (Auto) , Lymphocytes (%) ( Auto) , Monocytes (%) (Auto) , Eosinophils (%) (Auto) , Basophils (%) (Auto) , Differential Total Cells Counted 100, Neutrophils % (Manual) 86H, Lymphocytes % (Manual) 8L, Monocytes % (Manual) 3, Eosinophils % (Manual) 0, Basophils % ( Manual) 0, Band Neutrophils 3, Platelet Estimate Adequate, Platelet Morphology Normal, Anisocytosis 1+, Sodium Level 151H, Potassium Level 4.8, Chloride Level 116H, Carbon Dioxide Level 23, Anion Gap 12, Blood Urea Nitrogen 28H, Creatinine 1.1, Estimat Glomerular Filtration Rate , Glucose Level 129H, Calcium Level 9.2, Magnesium Level 2.7H Height (Feet): 5 Height (Inches): 6.00 Weight (Pounds): 100 Objective CV RR Lungs B wheezes Abd SNT. BS + E No cce Malik Adan MD Mar 16, 2018 10:33
--- NOTE | 2018-03-16 11:12 | Infectious Diseases Prog Note ---
Assessment/Plan Assessment/Plan antibiotics : vancomycin iv, zosyn A 1. pneumonia 2. leucocytosis improving 3. COPD 4. diabetes mellitus 5. hypertension P 1. continue vancomycin iv, zosyn 2. will follow up cultures Subjective ROS Limited/Unobtainable: Yes Allergies: Coded Allergies: No Known Allergies (Unverified , 03/14/18) Objective Vital Signs Last 24 Hour Vital Signs Date Time Temp Pulse Resp B/P (MAP) Pulse Ox O2 Delivery O2 Flow Rate FiO2 03/16/18 08:00 97.0 101 20 147/70 (95) 98 03/16/18 07:42 101 24 98 Nasal Cannula 2.0 28 03/16/18 07:31 83 24 92 Nasal Cannula 2.0 28 03/16/18 07:31 Nasal Cannula 2.0 28 03/16/18 07:31 92 Nasal Cannula 2.0 28 03/16/18 04:00 109 03/16/18 04:00 97.1 106 18 149/78 (101) 95 03/16/18 03:51 108 20 97 Nasal Cannula 2.0 28 03/16/18 03:40 105 20 94 Nasal Cannula 2.0 28 03/16/18 01:37 97.7 03/16/18 00:00 101.1 112 18 151/76 (101) 94 03/16/18 00:00 103 03/15/18 23:32 115 20 96 Nasal Cannula 2.0 03/15/18 23:22 112 20 93 Nasal Cannula 2.0 03/15/18 21:00 Nasal Cannula 2.0 03/15/18 20:00 99.2 127 22 153/82 (105) 94 03/15/18 20:00 117 03/15/18 19:35 117 20 Nasal Cannula 2.0 03/15/18 19:34 Nasal Cannula 2.0 03/15/18 19:33 92 Nasal Cannula 2.0 03/15/18 19:31 119 20 95 Nasal Cannula 2.0 03/15/18 19:20 114 20 92 Nasal Cannula 2.0 03/15/18 16:57 94 22 96 Nasal Cannula 2.0 03/15/18 16:53 92 22 93 Nasal Cannula 2.0 03/15/18 16:52 Nasal Cannula 2.0 03/15/18 16:52 Nasal Cannula 2.0 28 03/15/18 16:00 97.8 89 19 159/62 (94) 96 03/15/18 16:00 104 03/15/18 12:00 97.2 86 19 164/57 (92) 97 03/15/18 12:00 96 Height (Feet): 5 Height (Inches): 6.00 Weight (Pounds): 100 Respiratory/Chest: lungs clear Cardiovascular: normal rate, regular rhythm, no gallop/murmur Abdomen: soft, non tender, other - GT Extremities: no edema Microbiology Date/Time Source Procedure Growth Status 03/14/18 12:05 Blood Blood Culture - Preliminary NO GROWTH AFTER 24 HOURS Resulted 03/14/18 11:50 Blood Blood Culture - Preliminary NO GROWTH AFTER 24 HOURS Resulted 03/14/18 17:45 Nasal Nares MRSA Culture - Final Staphylococcus Aureus - Mrsa Complete 03/14/18 12:10 Nasal Nares Influenza Types A,B Antigen (EUFEMIA) - Final Complete 03/14/18 17:45 Rectum VRE Culture - Final Enterococcus Faecalis - Vre Enterococcus Faecium - Vre Complete 03/14/18 17:45 Rectum - Final NO CARBAPENEM-RESISTANT ENTEROBACTERI... Complete Laboratory Tests Test 03/16/18 06:23 White Blood Count 19.6 K/UL (4.8-10.8) H Red Blood Count 3.55 M/UL (4.70-6.10) L Hemoglobin 11.3 G/DL (14.2-18.0) L Hematocrit 34.5 % (42.0-52.0) L Mean Corpuscular Volume 97 FL (80-99) Mean Corpuscular Hemoglobin 31.8 PG (27.0-31.0) H Mean Corpuscular Hemoglobin Concent 32.7 G/DL (32.0-36.0) Red Cell Distribution Width 14.5 % (11.6-14.8) Platelet Count 163 K/UL (150-450) Mean Platelet Volume 9.1 FL (6.5-10.1) Neutrophils (%) (Auto) % (45.0-75.0) Lymphocytes (%) (Auto) % (20.0-45.0) Monocytes (%) (Auto) % (1.0-10.0) Eosinophils (%) (Auto) % (0.0-3.0) Basophils (%) (Auto) % (0.0-2.0) Differential Total Cells Counted 100 Neutrophils % (Manual) 86 % (45-75) H Lymphocytes % (Manual) 8 % (20-45) L Monocytes % (Manual) 3 % (1-10) Eosinophils % (Manual) 0 % (0-3) Basophils % (Manual) 0 % (0-2) Band Neutrophils 3 % (0-8) Platelet Estimate Adequate Platelet Morphology Normal Anisocytosis 1+ Sodium Level 151 MMOL/L (136-145) H Potassium Level 4.8 MMOL/L (3.5-5.1) Chloride Level 116 MMOL/L (98-107) H Carbon Dioxide Level 23 MMOL/L (21-32) Anion Gap 12 mmol/L (5-15) Blood Urea Nitrogen 28 mg/dL (7-18) H Creatinine 1.1 MG/DL (0.55-1.30) Estimat Glomerular Filtration Rate mL/min (>60) Glucose Level 129 MG/DL (74-106) H Calcium Level 9.2 MG/DL (8.5-10.1) Magnesium Level 2.7 MG/DL (1.8-2.4) H Current Medications Medications (Trade) Dose Ordered Sig/Jess Route PRN Reason Start Time Stop Time Status Last Admin Dose Admin Acetaminophen (Tylenol) 650 mg Q4H PRN GT Mild Pain/Temp > 100.5 03/14/18 17:30 04/13/18 17:29 03/16/18 08:48 Albuterol Sulfate (Proventil) 2.5 mg Q4H PRN HHN Shortness of Breath 03/14/18 17:30 03/19/18 17:29 03/15/18 16:50 Albuterol/ Ipratropium (Albuterol/ Ipratropium) 3 ml Q4HRT HHN 03/15/18 11:00 03/20/18 10:59 03/16/18 07:31 Aspirin (ASA) 81 mg DAILY GT 03/15/18 09:00 04/14/18 08:59 03/16/18 08:47 Atorvastatin Calcium (Lipitor) 10 mg BEDTIME GT 03/14/18 21:00 04/13/18 20:59 03/15/18 20:46 Clonidine HCl (Catapres Tab) 0.1 mg Q4H PRN GT For High Blood Pressure 03/16/18 09:45 04/14/18 09:44 Dextrose (Dextrose 50%) 25 ml Q30M PRN IV Hypoglycemia 03/14/18 17:30 04/13/18 17:29 Dextrose (Dextrose 50%) 50 ml Q30M PRN IV Hypoglycemia 03/14/18 17:30 04/13/18 17:29 Dextrose/ Electrolytes 1,000 ml @ 75 mls/hr [id number] IV 03/15/18 12:00 04/14/18 11:59 03/15/18 22:53 Divalproex Sodium (Depakote Sprinkles) 250 mg EVERY 12 HOURS GT 03/14/18 21:00 04/13/18 20:59 03/16/18 08:47 Docusate Sodium (Colace) 250 mg DAILY GT 03/15/18 09:00 04/14/18 08:59 03/16/18 08:48 Heparin Sodium (Porcine) (Heparin 5000 units/ml) 5,000 units EVERY 12 HOURS SUBQ 03/14/18 21:00 04/13/18 20:59 03/16/18 08:51 Insulin Aspart (NovoLOG) BEFORE MEALS AND HS SUBQ 03/14/18 21:00 04/13/18 20:59 03/16/18 06:17 Lansoprazole (Prevacid) 30 mg DAILY GT 03/15/18 09:00 04/14/18 08:59 03/16/18 08:47 Lorazepam (Ativan) 0.5 mg Q6HR GT 03/14/18 18:00 03/21/18 17:59 03/15/18 17:11 Magnesium Hydroxide (Mom) 30 ml DAILY GT 03/15/18 09:00 04/14/18 08:59 03/16/18 08:48 Piperacillin Sod/ Tazobactam Sod 3.375 gm/Sodium Chloride 110 ml @ 27.5 mls/hr EVERY 8 HOURS IVPB 03/14/18 22:00 03/19/18 21:59 03/16/18 06:13 Quetiapine Fumarate (SEROquel) 25 mg THREE TIMES A DAY GT 03/14/18 18:00 04/13/18 17:59 03/16/18 08:47 Sodium Phosphate (Fleet's Sodium Phosl Enema) 118 ml DAILYPRN PRN RECTAL Constipation 03/14/18 17:30 04/13/18 17:29 Trazodone HCl (Desyrel) 50 mg BEDTIME GT 03/14/18 21:00 04/13/18 20:59 03/14/18 20:44 Vancomycin HCl (Vanco rx to dose) 1 ea DAILY PRN MISC Per rx protocol 03/14/18 21:00 04/13/18 20:59 Vancomycin HCl 500 mg/Dextrose 110 ml @ 110 mls/hr Q24H IVPB 03/14/18 20:00 03/19/18 19:59 03/15/18 21:21 Vitamin D (Vitamin D) 2,000 intlu DAILY GT 03/15/18 09:00 04/14/18 08:59 03/16/18 08:48 Nishi Camacho MD Mar 16, 2018 11:12
--- NOTE | 2018-03-16 11:23 | Pulmonology Progress Note ---
Assessment/Plan Assessment/Plan Pulmonary Progress Note HPI: Patient is a 77-year-old male presents from residential facility with a fever. The patient with known history of pneumonia diabetes patient with recent discharge after a bout of pneumonia and urinary tract infection patient now evaluated in the emergency room and noted to have again pneumonia and possible sepsis the patient also with significant leukocytosis white cell count of 29 patient unable to give a history and patient essentially bedbound G-tube dependent. The patient is in no significant distress at this time. He was started on IV antibiotics and admitted. The patient long term chart was reviewed in detail the patient's prior chart was reviewed. The care was discussed with the ER physician as well. Next Past medical history Diabetes hypertension dementia pneumonia aspiration G-tube possible COPD benign prostatic hyperplasia hypertension and heart disease possible CVA Objective: Physical examination patient is a well-appearing male overall no significant distress Vital signs noted HEENT: NCAT, moist mm Lungs with scattered rhonchi crackles at the right base Cardiac exam normal S1-S2 regular rate and rhythm without murmurs rubs gallops Abdomen soft nontender G-tube in place Extremities no cyanosis clubbing or edema decreased range of motion Neurologically grossly nonfocal but nonverbal Labs Test 03/14/18 11:50 03/14/18 13:19 03/15/18 05:55 White Blood Count 29.7 K/UL (4.8-10.8) 23.6 K/UL (4.8-10.8) Red Blood Count 4.55 M/UL (4.70-6.10) 4.02 M/UL (4.70-6.10) Hemoglobin 14.3 G/DL (14.2-18.0) 12.6 G/DL (14.2-18.0) Hematocrit 43.8 % (42.0-52.0) 39.7 % (42.0-52.0) Mean Corpuscular Volume 96 FL (80-99) 99 FL (80-99) Mean Corpuscular Hemoglobin 31.4 PG (27.0-31.0) 31.4 PG (27.0-31.0) Mean Corpuscular Hemoglobin Concent 32.6 G/DL (32.0-36.0) 31.8 G/DL (32.0-36.0) Red Cell Distribution Width 14.6 % (11.6-14.8) 14.7 % (11.6-14.8) Platelet Count 302 K/UL (150-450) 235 K/UL (150-450) Mean Platelet Volume 8.1 FL (6.5-10.1) 9.0 FL (6.5-10.1) Neutrophils (%) (Auto) % (45.0-75.0) % (45.0-75.0) Lymphocytes (%) (Auto) % (20.0-45.0) % (20.0-45.0) Monocytes (%) (Auto) % (1.0-10.0) % (1.0-10.0) Eosinophils (%) (Auto) % (0.0-3.0) % (0.0-3.0) Basophils (%) (Auto) % (0.0-2.0) % (0.0-2.0) Differential Total Cells Counted 100 Neutrophils % (Manual) 88 % (45-75) Lymphocytes % (Manual) 7 % (20-45) Monocytes % (Manual) 3 % (1-10) Eosinophils % (Manual) 0 % (0-3) Basophils % (Manual) 0 % (0-2) Band Neutrophils 2 % (0-8) Platelet Estimate Adequate Platelet Morphology Normal Red Blood Cell Morphology Normal Sodium Level 150 MMOL/L (136-145) 155 MMOL/L (136-145) Potassium Level 4.2 MMOL/L (3.5-5.1) 3.9 MMOL/L (3.5-5.1) Chloride Level 110 MMOL/L (98-107) 116 MMOL/L (98-107) Carbon Dioxide Level 29 MMOL/L (21-32) 26 MMOL/L (21-32) Anion Gap 11 mmol/L (5-15) 13 mmol/L (5-15) Blood Urea Nitrogen 46 mg/dL (7-18) 38 mg/dL (7-18) Creatinine 1.4 MG/DL (0.55-1.30) 1.4 MG/DL (0.55-1.30) Estimat Glomerular Filtration Rate mL/min (>60) mL/min (>60) Glucose Level 121 MG/DL (74-106) 150 MG/DL (74-106) Calcium Level 10.1 MG/DL (8.5-10.1) 9.8 MG/DL (8.5-10.1) Total Bilirubin 0.5 MG/DL (0.2-1.0) Aspartate Amino Transf (AST/SGOT) 10 U/L (15-37) Alanine Aminotransferase (ALT/SGPT) 19 U/L (12-78) Alkaline Phosphatase 83 U/L (46-116) Total Creatine Kinase 24 U/L (26-308) Creatine Kinase MB < 0.5 NG/ML (0.0-3.6) Creatine Kinase MB Relative Index 2.0 Troponin I 0.023 ng/mL (0.000-0.056) Total Protein 7.6 G/DL (6.4-8.2) Albumin 3.1 G/DL (3.4-5.0) Globulin 4.5 g/dL Albumin/Globulin Ratio 0.7 (1.0-2.7) Urine Color Yellow Urine Appearance Slightly cloudy Urine pH 6.5 (4.5-8.0) Urine Specific [place] 1.015 (1.005-1.035) Urine Protein 2+ (NEGATIVE) Urine Glucose (UA) Negative (NEGATIVE) Urine Ketones Negative (NEGATIVE) Urine Blood 5+ (NEGATIVE) Urine Nitrite Negative (NEGATIVE) Urine Bilirubin Negative (NEGATIVE) Urine Urobilinogen Normal MG/DL (0.0-1.0) Urine Leukocyte Esterase 2+ (NEGATIVE) Urine RBC Tntc /HPF (0 - 0) Urine WBC 2-4 /HPF (0 - 0) Urine Squamous Epithelial Cells Occasional /LPF Urine Bacteria Occasional /HPF (NONE) Lactic Acid Level 1.80 mmol/L (0.4-2.0) Impression sepsis Leukocytosis Anemia Pneumonia Respiratory insufficiency Hyponatremia Acute renal failure Dementia Mild protein calorie malnutrition G-tube Benign prostatic hyperplasia Plan IV hydration IV antibiotics per ID ID evaluation Respiratory care Resume medication Monitor electrolytes Monitor x-ray Aspiration precautions Monitor imaging Discharge back to skilled facility once stable Subjective ROS Limited/Unobtainable: No Allergies: Coded Allergies: No Known Allergies (Unverified , 03/14/18) Objective Last 24 Hour Vital Signs Date Time Temp Pulse Resp B/P (MAP) Pulse Ox O2 Delivery O2 Flow Rate FiO2 03/16/18 11:13 89 24 93 Nasal Cannula 2.0 28 03/16/18 08:00 97.0 101 20 147/70 (95) 98 03/16/18 07:42 101 24 98 Nasal Cannula 2.0 28 03/16/18 07:31 83 24 92 Nasal Cannula 2.0 28 03/16/18 07:31 Nasal Cannula 2.0 28 03/16/18 07:31 92 Nasal Cannula 2.0 28 03/16/18 04:00 109 03/16/18 04:00 97.1 106 18 149/78 (101) 95 03/16/18 03:51 108 20 97 Nasal Cannula 2.0 28 03/16/18 03:40 105 20 94 Nasal Cannula 2.0 28 03/16/18 01:37 97.7 03/16/18 00:00 101.1 112 18 151/76 (101) 94 03/16/18 00:00 103 03/15/18 23:32 115 20 96 Nasal Cannula 2.0 28 03/15/18 23:22 112 20 93 Nasal Cannula 2.0 28 03/15/18 21:00 Nasal Cannula 2.0 03/15/18 20:00 99.2 127 22 153/82 (105) 94 03/15/18 20:00 117 03/15/18 19:35 117 20 Nasal Cannula 2.0 28 03/15/18 19:34 Nasal Cannula 2.0 28 03/15/18 19:33 92 Nasal Cannula 2.0 28 03/15/18 19:31 119 20 95 Nasal Cannula 2.0 28 03/15/18 19:20 114 20 92 Nasal Cannula 2.0 28 03/15/18 16:57 94 22 96 Nasal Cannula 2.0 28 03/15/18 16:53 92 22 93 Nasal Cannula 2.0 28 03/15/18 16:52 Nasal Cannula 2.0 28 03/15/18 16:52 Nasal Cannula 2.0 28 03/15/18 16:00 97.8 89 19 159/62 (94) 96 03/15/18 16:00 104 03/15/18 12:00 97.2 86 19 164/57 (92) 97 03/15/18 12:00 96 Intake and Output 03/15/18 03/16/18 19:00 07:00 Intake Total 735 ml 1826.9 ml Balance 735 ml 1826.9 ml Free Water 140 ml IV Total 75 ml 1081.9 ml Tube Feeding 660 ml 605 ml # Voids 2 2 # Bowel Movements 2 2 Microbiology Date/Time Source Procedure Growth Status 03/14/18 12:05 Blood Blood Culture - Preliminary NO GROWTH AFTER 24 HOURS Resulted 03/14/18 11:50 Blood Blood Culture - Preliminary NO GROWTH AFTER 24 HOURS Resulted 03/14/18 17:45 Nasal Nares MRSA Culture - Final Staphylococcus Aureus - Mrsa Complete 03/14/18 12:10 Nasal Nares Influenza Types A,B Antigen (EUFEMIA) - Final Complete 03/14/18 17:45 Rectum VRE Culture - Final Enterococcus Faecalis - Vre Enterococcus Faecium - Vre Complete 03/14/18 17:45 Rectum - Final NO CARBAPENEM-RESISTANT ENTEROBACTERI... Complete Laboratory Tests 03/16/18 06:23: White Blood Count 19.6H, Red Blood Count 3.55L, Hemoglobin 11.3L, Hematocrit 34.5L, Mean Corpuscular Volume 97, Mean Corpuscular Hemoglobin 31.8H, Mean Corpuscular Hemoglobin Concent 32.7, Red Cell Distribution Width 14.5, Platelet Count 163, Mean Platelet Volume 9.1, Neutrophils (%) (Auto) , Lymphocytes (%) ( Auto) , Monocytes (%) (Auto) , Eosinophils (%) (Auto) , Basophils (%) (Auto) , Differential Total Cells Counted 100, Neutrophils % (Manual) 86H, Lymphocytes % (Manual) 8L, Monocytes % (Manual) 3, Eosinophils % (Manual) 0, Basophils % ( Manual) 0, Band Neutrophils 3, Platelet Estimate Adequate, Platelet Morphology Normal, Anisocytosis 1+, Sodium Level 151H, Potassium Level 4.8, Chloride Level 116H, Carbon Dioxide Level 23, Anion Gap 12, Blood Urea Nitrogen 28H, Creatinine 1.1, Estimat Glomerular Filtration Rate , Glucose Level 129H, Calcium Level 9.2, Magnesium Level 2.7H Current Medications Medications (Trade) Dose Ordered Sig/Jess Route PRN Reason Start Time Stop Time Status Last Admin Dose Admin Acetaminophen (Tylenol) 650 mg Q4H PRN GT Mild Pain/Temp > 100.5 03/14/18 17:30 04/13/18 17:29 03/16/18 08:48 Albuterol Sulfate (Proventil) 2.5 mg Q4H PRN HHN Shortness of Breath 03/14/18 17:30 03/19/18 17:29 03/15/18 16:50 Albuterol/ Ipratropium (Albuterol/ Ipratropium) 3 ml Q4HRT HHN 03/15/18 11:00 03/20/18 10:59 03/16/18 11:13 Aspirin (ASA) 81 mg DAILY GT 03/15/18 09:00 04/14/18 08:59 03/16/18 08:47 Atorvastatin Calcium (Lipitor) 10 mg BEDTIME GT 03/14/18 21:00 04/13/18 20:59 03/15/18 20:46 Clonidine HCl (Catapres Tab) 0.1 mg Q4H PRN GT For High Blood Pressure 03/16/18 09:45 04/14/18 09:44 Dextrose (Dextrose 50%) 25 ml Q30M PRN IV Hypoglycemia 03/14/18 17:30 04/13/18 17:29 Dextrose (Dextrose 50%) 50 ml Q30M PRN IV Hypoglycemia 03/14/18 17:30 04/13/18 17:29 Dextrose/ Electrolytes 1,000 ml @ 75 mls/hr [id number] IV 03/15/18 12:00 04/14/18 11:59 03/15/18 22:53 Divalproex Sodium (Depakote Sprinkles) 250 mg EVERY 12 HOURS GT 03/14/18 21:00 04/13/18 20:59 03/16/18 08:47 Docusate Sodium (Colace) 250 mg DAILY GT 03/15/18 09:00 04/14/18 08:59 03/16/18 08:48 Heparin Sodium (Porcine) (Heparin 5000 units/ml) 5,000 units EVERY 12 HOURS SUBQ 03/14/18 21:00 04/13/18 20:59 03/16/18 08:51 Insulin Aspart (NovoLOG) BEFORE MEALS AND HS SUBQ 03/14/18 21:00 04/13/18 20:59 03/16/18 06:17 Lansoprazole (Prevacid) 30 mg DAILY GT 03/15/18 09:00 04/14/18 08:59 03/16/18 08:47 Lorazepam (Ativan) 0.5 mg Q6HR GT 03/14/18 18:00 03/21/18 17:59 03/15/18 17:11 Magnesium Hydroxide (Mom) 30 ml DAILY GT 03/15/18 09:00 04/14/18 08:59 03/16/18 08:48 Piperacillin Sod/ Tazobactam Sod 3.375 gm/Sodium Chloride 110 ml @ 27.5 mls/hr EVERY 8 HOURS IVPB 03/14/18 22:00 03/19/18 21:59 03/16/18 06:13 Quetiapine Fumarate (SEROquel) 25 mg THREE TIMES A DAY GT 03/14/18 18:00 04/13/18 17:59 03/16/18 08:47 Sodium Phosphate (Fleet's Sodium Phosl Enema) 118 ml DAILYPRN PRN RECTAL Constipation 03/14/18 17:30 04/13/18 17:29 Trazodone HCl (Desyrel) 50 mg BEDTIME GT 03/14/18 21:00 04/13/18 20:59 03/14/18 20:44 Vancomycin HCl (Vanco rx to dose) 1 ea DAILY PRN MISC Per rx protocol 03/14/18 21:00 04/13/18 20:59 Vancomycin HCl 500 mg/Dextrose 110 ml @ 110 mls/hr Q24H IVPB 03/14/18 20:00 03/19/18 19:59 03/15/18 21:21 Vitamin D (Vitamin D) 2,000 intlu DAILY GT 03/15/18 09:00 04/14/18 08:59 03/16/18 08:48 Hussain Stein MD Mar 16, 2018 11:23
[2018-03-16 12:00] VITALS: BP 137/84
[2018-03-16] MEDS ORDERED: Tubing IV Secondary IV ONE (14:03)
[2018-03-16] MEDS ORDERED: NS 275ml ONE (14:03)
--- NOTE | 2018-03-16 15:15 | History and Physical Report ---
DATE OF ADMISSION: 03/15/2018 HISTORY OF PRESENT ILLNESS: The patient is an unfortunate 77-year-old male, well-known to me from prior admissions. [facility]. He was transferred because of complaints of shortness of breath. He has a history of dementia, diabetes, and hypertension. He has a history of a G-tube, dysphagia, and COPD. The patient is a poor historian. He is unable to provide any history at the [facility] facility. He is noted to have cough, congestion, and leukocytosis. He was transferred for further inpatient evaluation and care. PAST MEDICAL HISTORY: As above. PAST SURGICAL HISTORY: Includes a G-tube. CURRENT MEDICATIONS: Reconciled and reviewed. ALLERGIES: None. FAMILY HISTORY: None. SOCIAL HISTORY: There is no known history of tobacco, ethanol, or drugs. REVIEW OF SYSTEMS: From the patient is unobtainable, as he is confused. PHYSICAL EXAMINATION: VITAL SIGNS: Temperature was 101.1, pulse 103, respirations 18, and blood pressure 115/76. GENERAL: The patient is a chronically ill-appearing thin male, in no apparent distress. He is awake, but does not follow commands. NECK: Supple. There is no jugular venous distention. HEART: Regular rate and rhythm. LUNGS: Significant for scattered rhonchi and rales. ABDOMEN: Soft, nontender, and nondistended. EXTREMITIES: Without clubbing, cyanosis, or edema. LABORATORY DATA: Labs showed right mid and lower lung opacities, consistent with pneumonia. The white count was 30,000. Sodium 155 and creatinine was 1.4. ASSESSMENT: This is an unfortunate elderly male with a history of dementia, hypertension, COPD, history of dysphagia, and status post G-tube placement, admitted with sepsis secondary to aspiration pneumonia. PLAN: 1. IV antibiotics. 2. Monitor chest x-ray. 3. Supplemental oxygen. 4. Continue G-tube feeds. 5. Monitor residuals. 6. DVT and stress ulcer prophylaxis. 7. Continue respiratory treatments as needed. 8. The patient's prognosis is overall guarded. Nicolás Robbins M.D. DR: AMY JOB#: [id number] CC:
--- NOTE | 2018-03-16 15:31 | Emergency Room Report ---
History of Present Illness General Chief Complaint: Fever Source: Patient, Family Member Present Illness Allergies: Coded Allergies: No Known Allergies (Unverified , 03/14/18) Nursing Documentation-[facility] Past Medical History Deferred: Pt Cognitively Impaired Hx Cardiac Problems: Yes - HLD, BPH, Anemia Hx Hypertension: Yes Hx COPD: Yes - COPD, PNA Hx Diabetes: Yes - DMII Hx Cancer: No Hx Gastrointestinal Problems: No - gastrostomy Hx Dialysis: Yes Hx Neurological Problems: Yes - muscle weakness, dysphagia, Alzheimer, hypertensive encephalopathy Hx Cerebrovascular Accident: Yes Hx Alzheimer's Disease: Yes Hx Speech Problem: Yes Physical Exam Vital Signs Date Time Temp Pulse Resp B/P (MAP) Pulse Ox O2 Delivery O2 Flow Rate FiO2 03/14/18 11:35 97.9 120 30 119/78 92 2.0 03/14/18 11:40 Nasal Cannula 03/15/18 16:52 28 Procedures CPR/Code Blue CPR/Code Blue Narrative See code sheet for full medication list.Patient was noted to have initial response to medications after multiple rounds of epinephrine and bicarb. Patient was noted to have a brief return of spontaneous circulation. Patient subsequently had recurrence of arrest. Patient was subsequently pronounced . Patient's daughter was notified. Intubation Intubation : Consent: Emergent Intubation Method: orotracheal Tube Size (cm): 7.0 Breath Sounds after Intubation: equal Intubation Complications: no complications Attempts: One Patient Tolerated: Well Complications: None Medical Decision Making Diagnostic Impression: Primary Impression: Sepsis Additional Impression: Pneumonia Last Vital Signs Date Time Temp Pulse Resp B/P (MAP) Pulse Ox O2 Delivery O2 Flow Rate FiO2 03/16/18 11:26 91 25 94 Nasal Cannula 2.0 28 03/16/18 08:00 97.0 147/70 (95) Disposition: Condition: Referrals: NON PHYSICIAN (PCP) Cameron Delgado MD Mar 16, 2018 15:31
--- NOTE | 2018-03-16 18:50 | Cardiology Report ---
APPROVED REPORT EKG Measurement Heart [id number] Sinus tachycardia Possible Left atrial enlargement Nonspecific ST and T wave abnormality Abnormal ECG
--- NOTE | 2018-03-17 10:31 | Discharge Summary ---
Discharge Summary Discharge Summary _ DATE OF ADMISSION: 03/15/2018 DATE OF DISCHARGE: 03/16/2018 BRIEF SUMMARY: Patient is an unfortunate 77-year-old male, who is a resident from a correction facility, he was transferred because of complaints of shortness of breath. He has history of dementia, diabetes, COPD, dysphagia and had a G- tube. He was noted to have cough, congestion leukocytosis. On evaluation at the ED, blood pressure was 119/78, pulse rate 120, RR 30, O2 saturation 92% on 2 L nasal cannula. He was febrile, temperature of 100.7 F. Blood work showed severe leukocytosis, WBC was elevated to 29.7. Septic work- up was initiated. Sodium was elevated to 150, chloride 110, BUN 46, creatinine 1.4. Troponin was negative. Urinalysis showed 2+ protein, 5+ blood, negative nitrite, 2+ leukocyte esterase, too many to count RBC, 2-4 WBC. EKG showed sinus tachycardia. Chest x-ray showed right mid and lower lung opacities, suspicious for pneumonia. Influenza screen negative. He was started on cefepime. He was then admitted for evaluation of sepsis secondary to aspiration pneumonia. ID was consulted. Levaquin was discontinued. He was given vancomycin and Zosyn. He was given IV hydration. He was checked for Legionella and mycoplasma. IV fluid was changed to hypotonic D5W. He was placed on strict aspiration precautions. He was continued on G-tube feedings. Leukocytosis was trending down. On 02/27/2018, he was noted to have labored breathing. He was placed on 100% nonrebreather mask. He continued to decline and went into asystole. [facility] was called. Initially patient was noted to have initial response to medication after multiple rounds of epinephrine and bicarbonate. There was a brief return of spontaneous circulation. Patient however had recurrence of the arrest. Resuscitative efforts failed and patient . FINAL DIAGNOSES: Cardiopulmonary arrest Sepsis secondary to aspiration pneumonia Dementia Hypertension COPD Dysphagia status post G-tube Hypernatremia Acute kidney injury Mild protein calorie malnutrition BPH Diabetes mellitus DISPOSITION: Patient . I have been assigned to complete a discharge summary on this account, I was not involved with the patient's management. Chani Joshi NP Mar 17, 2018 10:31
== END 2018-03-16 15:00 | disposition expired | DRG 871 ==
LOC: EDBD 11:33 → EMR 12:34 → EDBEDREQ 14:03 → 2E 14:11 → EDBEDREQ 15:11 → ICU 03-16 14:49
DX: A41.9 Sepsis, unspecified organism (principal); J69.0 Pneumonitis due to inhalation of food and vomit; E87.0 Hyperosmolality and hypernatremia; N17.9 Acute kidney failure, unspecified; Z43.1 Encounter for attention to gastrostomy; E44.1 Mild protein-calorie malnutrition; Z68.1 Body mass index [BMI] 19.9 or less, adult; F03.90 Unspecified dementia, unspecified severity, without behavioral disturbance, psychotic disturbance, mood disturbance, and anxiety; I10 Essential (primary) hypertension; R13.10 Dysphagia, unspecified; J44.9 Chronic obstructive pulmonary disease, unspecified; N40.0 Benign prostatic hyperplasia without lower urinary tract symptoms; E11.9 Type 2 diabetes mellitus without complications; I51.9 Heart disease, unspecified; Z86.73 Personal history of transient ischemic attack (TIA), and cerebral infarction without residual deficits
CPT/HCPCS: 36415; 36600; 71045; 80048; 80053; 81003; 82550; 82553; 82803; 82962; 83605; 83735; 84484; 85007; 85025; 86710; 86713; 86738; 87040; 87081; 92950; 93005; 94640; 94664; 94760; 96360; 99291; J1815; J7620